=== PATIENT | female | born 1965 | race Caucasian/White ===

== ENCOUNTER 2018-11-21 07:15 | Day surgery (SDC) | payer OTHER ==
[2018-11-20 11:49] VITALS: BMI 30.5
[2018-11-21] MEDS ORDERED: Fentanyl 100 MCG/2 ML VIAL ONE ×2 (08:35→12:25)
[2018-11-21] MEDS ORDERED: Ciprofloxacin 0.2% Otic 1 DROP CON ONE ×2 (09:18→11:14)
[2018-11-21] MEDS ORDERED: Lidocaine 1% w/Epinephrine 1:100K 20 ML VIAL ONE ×2 (09:18→10:23)
[2018-11-21] MEDS ORDERED: Bacitracin Zinc Ointment 30 gm TUBE ONE (09:18)
[2018-11-21] MEDS ORDERED: EPINEPHrine 1 MG/ML AMP ONE (09:18)
[2018-11-21] MEDS ORDERED: Gelfilm 1 EA Packet ONE (10:45)
[2018-11-21] MEDS ORDERED: Morphine 2 MG/ML SYRINGE ONE (13:32)
[2018-11-21] MEDS ORDERED: HYDROcodone/Acetaminophen 5/325 mg Tablet ONE (13:32)
[2018-11-21] MEDS ORDERED: PHENYLEPHRINE-NS 100 MCG/ML 10 ML SYRINGE ONE (16:37)
[2018-11-21] MEDS ORDERED: Lidocaine 1% PF 5 ML VIAL ONE (16:37)
[2018-11-21] MEDS ORDERED: Succinylcholine Chloride 20 MG/ML 10 ml SYRINGE FS ONE (16:37)
[2018-11-21] MEDS ORDERED: Dexamethasone 20 MG/5 ML VIAL ONE (16:37)
[2018-11-21] MEDS ORDERED: PROPOFOL 200 MG/20 ML VIAL ONE (16:37)
[2018-11-21] MEDS ORDERED: Rocuronium Bromide 10 MG/ML (10ML VIAL) ONE (16:37)
[2018-11-21] MEDS ORDERED: Ondansetron PF 4 MG/2 ML Vial ONE (16:37)
[2018-11-21] MEDS ORDERED: ePHEDrine 50 MG/ML VIAL ONE (16:37)
--- NOTE | 2018-11-22 09:24 | OP ---
DATE OF PROCEDURE: 11/21/2018 PREOPERATIVE DIAGNOSES: Right chronic otitis media, right chronic mastoiditis. POSTOPERATIVE DIAGNOSES: Right chronic otitis media, right chronic mastoiditis. PROCEDURES PERFORMED: 1. Right myringotomy placement of Paparella type 1 pressure equalization tubes using binocular microscopy. 2. Right tympanomastoidectomy using binocular microscopy. 3. Facial nerve monitoring for 2 hours. 4. Use of operating microscope. PROCEDURE IN DETAIL: After consent was obtained, the patient was identified and brought to the operating room, and placed on the operating room table in supine position. General endotracheal anesthesia was obtained and facial nerve monitor was placed and documented to be functioning well. We then prepped and draped the ear and positioned the patient for surgery. The ear canal was injected with 1% lidocaine with 1:50,000 epinephrine. We then cleared the external canal and visualized the tympanic membrane. An anterior inferior myringotomy was performed, in which Paparella type 1 pressure equalization tube was placed. We then proceeded with posterior creating a posterior auricular incision, carrying down through the skin and subcutaneous tissues and postauricular muscles. We then elevated anteriorly along the temporalis fascial plane and skeletonized the posterior aspect of the ear canal. A self-retaining retractor was placed. We then made a periosteal incision with the cautery and exposed the mastoid using a Lempert elevator. At this point, the posterior canal skin was elevated and transected with a 15 blade and a Seward drain was used to retract the ear forward. We then harvested a temporalis fascial graft and cleaned it and placed it on the back table to dry. Vertical incisions were made in the external canal skin and dissection continued down to the level of the annulus, which was then elevated. We then packed the external canal, protected from the bony fragments and took down several adhesions in the middle ear space. The middle ear space was filled with Gelfoam and treated with Ciprodex to prevent postop adhesions of the tympanic membrane to the middle ear mucosa. We then used a #6 cutting drill bit to skeletonize and dissect the mastoid. We encountered a lot of adhesive mucosal disease within the air cells. Ultimately, smaller drill bits were used to delineate the skull base, lateral sinus and the air cells and the tip of the mastoid. We then proceeded to skeletonize the posterior canal bone. We then switched to a constance bur and dissected up towards the attic at this point and smoothed out all the mastoid bone once continuity was obtained with the middle ear space. We copiously irrigated with saline and suctioned it. There was free flow of mucosa. Once the attic obstruction was addressed, relieved. At this point, then we filled the mastoid with some Gelfoam, treated with Ciprodex and reapproximated the periosteum. We then closed the postauricular muscles and the dermis and replaced the tympanomeatal flap. The external canal was also filled with Gelfoam. The skin was closed with a running Prolene and sterile dressing was applied as well as was a Rudy ear dressing. The patient was then awakened, taken to recovery room in stable condition prior to discharge home. Facial nerve was intact. Job ID: [id number]
== END 2018-11-25 15:15 | disposition home or self-care (01) ==
LOC: SDC 07:15
PROVIDERS: ATTEND Specialist
PROC: 0NB50ZZ Excision of Right Temporal Bone, Open Approach (ICD-10-PCS; principal; 2018-11-21)
PROC: 099570Z Drainage of Right Middle Ear with Drainage Device, Via Natural or Artificial Opening (ICD-10-PCS; principal; 2018-11-21)
DX: H70.11 Chronic mastoiditis, right ear (principal); H65.21 Chronic serous otitis media, right ear; H71.91 Unspecified cholesteatoma, right ear; E11.9 Type 2 diabetes mellitus without complications; G43.909 Migraine, unspecified, not intractable, without status migrainosus; Z79.4 Long term (current) use of insulin; Z79.899 Other long term (current) drug therapy; Z98.890 Other specified postprocedural states
CPT/HCPCS: 36416; 85014; 93005; 93010; J0131; J0171; J1100; J2001; J2270; J2405; J2704; J3010; J3490

== ENCOUNTER 2020-05-29 02:12 | Inpatient (IN) | payer OTHER ==
[2020-05-29] MEDS ORDERED: Dextrose 50% Abboject 50 ML SYRINGE ONE (06:03)
[2020-05-29] MEDS ORDERED: Dextrose 50% Abboject 50 ML SYRINGE IVP PRN (06:15)
[2020-05-29] MEDS ORDERED: Dextrose 5% in Water 1,000 ML IV PRN ×2 (06:15→07:07)
[2020-05-29 06:32] LABS: #Lymphocytes 0.8 thou/uL (1.20-3.40); #Monocytes 0.1 thou/uL (0.11-0.59); %Basophils 0.5 % (0.0-1.0); %Eosinophils 0.3 % (0.0-10.0); %Monocytes 1.6 % (0.0-10.0); %Neutrophils 87.6 % (42.0-75.0); Hemoglobin 9.4 g/dL (12.0-16.0); Mean Corpuscular HGB CONC 33.1 g/dL (32.0-36.0); Mean Corpuscular Hemoglobin 31.7 pg (27.0-31.0); Mean Corpuscular Volume 95.6 fL (78.0-98.0); Mean Platelet Volume 10.2 fL (7.4-10.4); Platelet Count 183 thou/uL (130-400); RBC Distribution Width 12.6 % (11.5-14.5); Red Blood Cell (RBC) Count 2.95 mill/uL (4.20-5.40)
[2020-05-29] MEDS ORDERED: Sodium Chloride 0.9% 1,000 ML IV SCH (06:45)
--- NOTE | 2020-05-29 06:48 | PDOC.HHP ---
Hospitalist HPI - History of Present Illness Dyspnea History of Present Illness: This is a 55-year-old female patient with a history of hypertension, diabetes mellitus who was transferred from [facility] on account of worsening respiratory failure in the setting of Covid pneumonia. Patient noted that she tested positive for Covid a week ago. She was initially asymptomatic however she started developing fevers and mild shortness of breath. However 2 days ago she did have having worsening shortness of breath and cough. She notes having coughed up blood on 2 occasions. She presented [facility] where she was initially managed on oxygen therapy steroids however her oxygen requirements kept rising. It was also noted her blood sugar was difficult to control and she also had an NATANAEL. Prior to discharge she was on 15 L oxygen on nonrebreather. She was directly admitted to the CCU. Initial vital were BP 140/61, respiratory 29, oxygen sats 95% on high flow. She was afebrile. Hospitalist ROS - Review of Systems Constitutional: reports: fever, weakness, malaise. denies: chills, sweats Respiratory: reports: cough, shortness of breath, hemoptysis, SOB with excertion Cardiovascular: denies: chest pain, palpitations, orthopnea, paroxysmal noc. dyspnea Gastrointestinal: denies: nausea, vomiting, abdominal pain, diarrhea Genitourinary: denies: dysuria, frequency, incontinence, hematuria Neurological: denies: weakness, numbness, incoordination, change in speech All other systems reviewed; all pertinent +/- noted in HPI/Subj - Medication Medications: Medications: Currently refer to ambulatory order list. Allergies: Prednisone Hospitalist History - Past Medical History Cardiac: reports: HTN Endocrine: reports: Diabetes - Past Surgical History Other Surgical History: right ear surgery - Family History Family History: reports: no pertinent history - Social History Smoking Status: Never smoker Alcohol: reports: None Living Situation: With Family Activity level: independent ambulation - Exam General Appearance: awake alert Eye: PERRL, anicteric sclera ENT: normocephalic atraumatic Neck: supple, symmetric, no thyromegaly Heart: RRR, no murmur, no gallops, no rubs, normal peripheral pulses Respiratory - other findings: Reduced air entry bilaterally. Occasional wheezing Gastrointestinal: soft, non-tender, non-distended, normal bowel sounds Extremities: no cyanosis, no clubbing, no edema Neurological: cranial nerve grossly intact, normal sensation to touch, no focal deficits Musculoskeletal: normal tone, normal strength, no muscle wasting Psychiatric: normal affect, normal behavior, A&O x 3 Hospitalist Results - Labs Result Diagrams: 05/29/20 06:22 05/29/20 06:22 Lab results: WBC 8.0 thou/uL (4.8-10.8) 05/29/20 06:22 Hgb 9.4 g/dL (12.0-16.0) L 05/29/20 06:22 Hct 28.2 % (36.0-47.0) L 05/29/20 06:22 MCV 95.6 fL (78.0-98.0) 05/29/20 06:22 Plt Count 183 thou/uL (130-400) 05/29/20 06:22 Neutrophils % 87.6 % (42.0-75.0) H 05/29/20 06:22 Hospitalist H&P A/P - Plan Plan: This is a 55-year-old female patient with a history of hypertension, diabetes mellitus tested positive for Covid a week ago coming in with worsening dyspnea cough and acute worsening respiratory failure. Acute hypoxic respiratory failure In the setting of Covid pneumonia Currently on high flowcontinue Appreciate pulmonology input. Pneumonia due to Covid Oxygen therapy as above Other D-dimer, ferritin and CRP may not benefit from remdesivir order Plasma Monitor in CCU. NATANAEL Creatinine was above 2 at outside facility Was started on IV fluidswe will continue Nephrology consult Hyperglycemia due to type 2 diabetes/steroids Correctional insulin Monitor glucose. Hypertension BP controlled Monitor blood pressure. DVT prophylaxisLovenox CODE STATUS full code
[2020-05-29 06:49] LABS: Lactic Acid 1.9 mmol/L (0.5-2.2)
[2020-05-29 06:55] LABS: ALT (SGPT) 28 U/L (8-55); AST (SGOT) 30 U/L (5-34); Albumin 3.1 g/dL (3.5-5.0); Alkaline Phosphatase 175 U/L (40-110); Anion Gap 16 mmol/L (10-20); BUN (Urea Nitrogen) 50 mg/dL (9.8-20.1); Bilirubin, Total 0.2 mg/dL (0.2-1.2); Calc. Creatinine Clearance 44 mL/min (70-130); Calcium 7.1 mg/dL (7.8-10.44); Carbon Dioxide 16 mmol/L (22-29); Chloride 110 mmol/L (98-107); Globulin 2.8 g/dL (2.4-3.5); Glucose 175 mg/dL (70-105); Magnesium 2.1 mg/dL (1.6-2.6); Phosphorus 2.9 mg/dL (2.3-4.7); Potassium 4.4 mmol/L (3.5-5.1); Protein, Total 5.9 g/dL (6.0-8.3); Sodium 138 mmol/L (136-145)
[2020-05-29] MEDS ORDERED: Dextrose 50% Abboject 50 ML SYRINGE SLOW IVP PRN (07:07)
--- NOTE | 2020-05-29 08:07 | RAD ---
Chest AP view INDICATION: History of Covid pneumonia COMPARISON: None FINDINGS: Lungs: There is bilateral interstitial and airspace opacities Cardiac silhouette: The cardiomediastinal silhouette appears within normal limits. Pulmonary vasculature: Normal Pleural spaces: No pleural effusion or pneumothorax is demonstrated. Upper abdomen: No abnormality seen. Osseous structures: No acute osseous abnormality. Additional findings: None. IMPRESSION: Bilateral interstitial and airspace opacities suspicious for an atypical pneumonia
[2020-05-29 08:13] LABS: Actual Bicarbonate (HCO3a) 15.2 mEq/L (22-28); Base Excess (BEa) -8.4 mEq/L (-2.0 to +3.0); CO2 Tension 26.1 mmHg (35.0-45.0); Calcium, Ionized (arterial) 1.02 mmol/L (1.12-1.30); Carboxyhemoglobin (COHb) 0.5 gm% (0.0-3.0); Hemoglobin (Hb) 12.3 g/dL (12.0-16.0); Potassium - ABG Lab 3.93 mmol/L (3.70-5.30); pH, Arterial 7.38 (7.35-7.45)
[2020-05-29 08:24] LABS: ALV-art Gradient 490.975 mmHg (0-20); O2 Tension (PaO2), arterial 46.8 mmHg (80.0-100.0); Puncture Site RBA
[2020-05-29] MEDS: Sodium Bicarbonate 150 MEQ in Dextrose 5% in Water 1,000 ML IV SCH ×2 (08:58→22:23)
[2020-05-29] MEDS: Cholecalciferol (Vitamin D3) 400 UNITS TAB PO SCH (08:58)
[2020-05-29] MEDS: Dexamethasone 4 mg/ml Vial SLOW IVP SCH (08:59)
[2020-05-29] MEDS: Ascorbic Acid 500 mg Chewable Tablet PO SCH (08:59)
[2020-05-29] MEDS: Zinc Sulfate 220 MG CAP PO SCH (09:00)
[2020-05-29] MEDS ORDERED: Enoxaparin Sodium 100 MG/ML SYRINGE SC SCH (09:00)
[2020-05-29] MEDS ORDERED: Enoxaparin Sodium 40 MG/0.4 ML SYRINGE SC SCH (09:00)
--- NOTE | 2020-05-29 10:02 | PDOC.HOSPP ---
- Subjective Encounter Date: 05/29/20 (f/u acute resp failure) Encounter Time: 09:59 Subjective: Pt reports her breathing feels worse - she is short of breath and coughing. - Objective Vital Signs & Weight: Vital Signs (12 hours) Temp 05/29/20 08:00 101.1 F H 05/29/20 06:00 98.0 F Weight Weight 220 lb Most Recent Monitor Data Heart Rate from ECG 91 NIBP 165/63 NIBP BP-Mean 97 Respiration from ECG 38 SpO2 89 I&O: 05/28/20 05/29/20 05/30/20 06:59 06:59 06:59 Output Total 0 425 Balance 0 -425 Result Diagrams: 05/29/20 06:22 05/29/20 06:22 EKG Reviewed by me: Yes (tele - sinus, 80's) Hospitalist ROS - Medication Medications: Active Medications Generic Name Dose Route Start Last Admin Trade Name Freq PRN Reason Stop Dose Admin Ascorbic Acid 1,000 mg 05/29/20 09:00 05/29/20 08:59 Ascorbic Acid 500 Mg Chewable Tablet PO 1,000 mg DAILY GEO Administration Cholecalciferol 400 units 05/29/20 09:00 05/29/20 08:58 Cholecalciferol (Vitamin D3) 400 Units Tab PO 400 units DAILY GEO Administration Dexamethasone 8 mg 05/29/20 09:00 05/29/20 08:59 Dexamethasone 4 Mg/Ml Vial SLOW IVP 8 mg DAILY GEO Administration Enoxaparin Sodium 100 mg 05/29/20 09:00 05/29/20 08:58 Enoxaparin Sodium 100 Mg/Ml Syringe SC 100 mg 0900,2100 GEO Administration Sodium Bicarbonate 150 meq/ 1,150 mls @ 80 mls/hr 05/29/20 08:30 05/29/20 08:58 Dextrose/Water IV 1,150 mls INF GEO Administration Sodium Chloride 10 ml 05/29/20 09:00 05/29/20 09:00 Flush - Normal Saline 10 Ml Syringe IVF 10 ml Q12HR GEO Administration Zinc Sulfate 220 mg 05/29/20 09:00 05/29/20 09:00 Zinc Sulfate 220 Mg Cap PO 220 mg DAILY GEO Administration - Exam General Appearance: NAD Heart: RRR, no murmur Respiratory: no wheezes, no rales, rhonchi, tachypneic Gastrointestinal: soft, non-tender, non-distended, normal bowel sounds Extremities: no cyanosis, no clubbing, no edema Psychiatric - other findings: appears tired and speaking in short phrases Hosp A/P (1) Acute respiratory failure Code(s): J96.00 - ACUTE RESPIRATORY FAILURE, UNSP W HYPOXIA OR HYPERCAPNIA Status: Acute Qualifiers: Respiratory failure complication: hypoxia Qualified Code(s): J96.01 - Acute respiratory failure with hypoxia (2) Pneumonia due to COVID-19 virus Code(s): U07.1 - COVID-19; J12.89 - OTHER VIRAL PNEUMONIA Status: Acute (3) Diabetes mellitus Code(s): E11.9 - TYPE 2 DIABETES MELLITUS WITHOUT COMPLICATIONS Status: Acute Qualifiers: Diabetes mellitus type: type 2 (4) Hypertension Code(s): I10 - ESSENTIAL (PRIMARY) HYPERTENSION Status: Chronic (5) Acute kidney injury Code(s): N17.9 - ACUTE KIDNEY FAILURE, UNSPECIFIED Status: Acute (6) Metabolic acidosis Code(s): E87.2 - ACIDOSIS Status: Acute (7) Hypoproteinemia Code(s): E77.8 - OTHER DISORDERS OF GLYCOPROTEIN METABOLISM Status: Acute (8) Anemia Code(s): D64.9 - ANEMIA, UNSPECIFIED Status: Acute - Plan Worsening respiratory status - d/w Pulmonology and plan to intubate - pt verbally consents to this - continue steroids - pt consented to convalescent plasma - albuterol prn - tessalon perles prn NATANAEL with metabolic acidosis - appreciate Nephrology consult - Now on bicarbonate gtt DM - insulin prn HTN - monitor bp's after intubation, hold any scheduled meds dvt prophy - changed to full dose anticoagulation by Nephrology/Dr. Tavares gi prophy - will start IV famotidine code status - full pt at high risk in current condition with guarded prognosis
[2020-05-29] MEDS ORDERED: Propofol 1,000 MG/100 ML VIAL IV ONE (10:13)
[2020-05-29] MEDS ORDERED: Ventilator Sedation Protocol 1 EACH FS SCH (10:13)
[2020-05-29] MEDS ORDERED: Propofol BOLUS 1,000 MG/100 ML VIAL IV PRN (10:30)
[2020-05-29] MEDS ORDERED: Morphine 2 MG/ML VIAL SLOW IVP PRN (10:30)
[2020-05-29] MEDS ORDERED: Fentanyl BOLUS 250 ML IVPB PRN (10:30)
[2020-05-29] MEDS ORDERED: DISCONTINUE PREVIOUS NARCOTIC PAIN MEDICATIONS AND BENZODIAZEPINES FS SCH (10:30)
[2020-05-29] MEDS: fentaNYL Citrate/PF 2,000 MCG in Sodium Chloride 0.9% 60 ML IV SCH (10:41)
[2020-05-29] MEDS: Lorazepam 2 MG/ML VIAL SLOW IVP PRN ×2 (10:52→12:43)
[2020-05-29 11:04] LABS: Actual Bicarbonate (HCO3a) 16.4 mEq/L (22-28); Base Excess (BEa) -8.8 mEq/L (-2.0 to +3.0); CO2 Tension 33.3 mmHg (35.0-45.0); Calcium, Ionized (arterial) 1.01 mmol/L (1.12-1.30); Carboxyhemoglobin (COHb) 0.2 gm% (0.0-3.0); Hemoglobin (Hb) 12.3 g/dL (12.0-16.0); Potassium - ABG Lab 4.27 mmol/L (3.70-5.30); pH, Arterial 7.31 (7.35-7.45)
[2020-05-29 11:06] LABS: O2 Tension (PaO2), arterial 43.3 mmHg (80.0-100.0); Puncture Site RBA
[2020-05-29 11:11] LABS: ALV-art Gradient 628.075 mmHg (0-20)
[2020-05-29 11:20] LABS: Bilirubin Negative (Negative); Blood, Urine 2+ (Negative); Clarity Turbid (Clear); Glucose, Urine (Dipstick) 30 mg/dL (Negative); Ketone, Urine Negative (Negative); Leukocyte 250 Leu/uL (Negative); Nitrite Negative (Negative); Protein, Urine (Dipstick) 100 mg/dL (Neg-Trace); Specific Gravity, Urine 1.018 (1.002-1.036); Squamous Epithelial 0-3 HPF (0-3); Transitional Epithelial 0-3 HPF (None Seen); Urobilinogen Normal mg/dL (Less than 2); pH, Urine 5.5 (5.0-9.0)
[2020-05-29] MEDS ORDERED: Vecuronium 10 MG VIAL ONE (11:27)
[2020-05-29 11:30] LABS: Bacteria/HPF Rare-Few HPF (None Seen); RBC/HPF 21-50 HPF (0-3)
[2020-05-29 11:34] LABS: Creatinine, Urine 148.82 mg/dL (47-110)
[2020-05-29] MEDS: Propofol 1,000 MG/100 ML VIAL IV PRN ×3 (12:43→19:59)
[2020-05-29] MEDS ORDERED: Enoxaparin Sodium 60 MG/0.6 ML SYRINGE SC SCH (14:15)
--- NOTE | 2020-05-29 14:19 | PRG ---
DATE OF SERVICE: 05/29/2020 HISTORY OF PRESENT ILLNESS: Ms. Mckeon is a 55-year-old female who is very pleasant and cooperative, although in distress. She is transferred here from [facility] near [place] for pneumonia. She tested positive for COVID a week prior. When I saw her, she reported that she was getting fatigued. She did not know how much longer she could go on. PAST MEDICAL HISTORY: Remarkable for diabetes. FAMILY HISTORY: Negative for lung disease in early age. SOCIAL HISTORY: She is a nonsmoker and nondrinker. PHYSICAL EXAMINATION: VITAL SIGNS: Breathing in the 30s, low-grade temperature elevation. Blood pressure 110/54, heart rate is in 80s. HEAD AND NECK: Unremarkable. LUNGS: Remarkable for coarse and equal breath sounds. HEART: Regular rhythm. ABDOMEN: Soft. EXTREMITIES: Without edema. DIAGNOSTIC STUDIES: Chest radiograph shows patchy bilateral infiltrates. LABORATORY DATA: White count 8, hemoglobin 9.4, platelets 183. Sodium 138, potassium 4.4, chloride 110, bicarb 16, BUN 50, creatinine 2.27. Blood gas at 8 o'clock this morning is 7.38, CO2 26 PO2 46. I have recommended that we proceed with intubation. She will not improve quickly on BiPAP, only buy her a little time before she needs intubation. Hopefully, we can intubate her and place her in the prone position and minimize her FIO2. The pH post intubation is 7.31, CO2 33, PO2 is 43 on bilevel. We have adjusted her ventilation. She will be prone. Convalescent plasma will be ordered, although I suspect she has developed some antibodies at this point. Based on the available data, she is not really a candidate for monoclonal antibody given the severity of her illness. ADDENDUM: It was noted that Lovenox 100 mg subcu q.12 has been ordered. Since it is unclear which direction her creatinine clearance is going to go, I think this might be excessive, so we will cut her dosing back to 60 mg q.12 for now. Critical care time 30 min. Job ID: [id number] MTDD
[2020-05-29] MEDS: Acetaminophen 650 MG Suppository PR PRN (14:33)
[2020-05-29] MEDS: Benzonatate 100 MG CAP PO SCH ×2 (15:27→20:00)
[2020-05-29] MEDS ORDERED: Calcium Gluconate 9.2 MEQ in Sodium Chloride 0.9% 100 ML IVPB SCH (15:30)
--- NOTE | 2020-05-29 16:14 | CON ---
DATE OF CONSULTATION: 05/29/2020 SERVICE: Nephrology. REASON FOR CONSULTATION: Acute renal failure. REQUESTING PHYSICIAN: Laurent Beaulieu MD HISTORY OF PRESENT ILLNESS: A 55-year-old female with known history of hypertension, diabetes mellitus, who was admitted on transfer from [facility] for further evaluation and treatment of worsening respiratory failure. The patient was diagnosed with COVID pneumonia with COVID infection about a week ago and developed worsening shortness of breath as well as cough associated with hypoxia and hemoptysis and was admitted to [facility]. She initially was managed with oxygen therapy and steroids. However, respiratory status continued to worsen, and the patient maxed out on 15 L on nonrebreather yet, was not saturating well, hence need for ICU transfer for further evaluation and treatment. The patient was unable to provide any significant history this morning due to worsening respiratory distress. Despite high humidity oxygen, the patient is not saturating well and has significant hypoxia on arterial blood gas and intubation is planned at this moment. The patient also was found to have elevated creatinine and BUN, necessitating Nephrology consult. PAST MEDICAL HISTORY: 1. Hypertension. 2. Diabetes mellitus. PAST SURGICAL HISTORY: Right ear surgery. FAMILY HISTORY: Reviewed, but noncontributory. SOCIAL HISTORY: Never smoker. Lives with family. Denied alcohol or recreational drug use. ALLERGIES: PREDNISONE. PRIOR TO HOSPITAL MEDICATIONS: 1. Amlodipine 2.5 mg p.o. daily at bedtime. 2. Victoza 1.8 subcutaneously daily. 3. Enalapril 2.5 mg p.o. b.i.d. 4. Tresiba 32 units subcutaneously daily. 5. Gabapentin 400 mg p.o. daily at bedtime. 6. Allopurinol 200 mg p.o. daily. REVIEW OF SYSTEMS: Unable to obtain due to the patient's condition. PHYSICAL EXAMINATION: VITAL SIGNS: Temperature 101.1, pulse 92, respiratory rate 25, SpO2 of 89% on high-flow high humidity oxygen, blood pressure is 158/64. GENERAL: Obese female, in moderate respiratory distress. Afebrile, but anicteric and acyanotic. HEENT: Normocephalic, atraumatic. Oral mucosa is mildly dry. NECK: Supple with no JVD. CARDIOVASCULAR: Regular rhythm and rate. Normal heart sounds 1 and 2. RESPIRATORY: Fair air entry with scattered transmitted breath sounds and crackles. Work of breathing is increased. GI: Obese, soft, nontender, nondistended with normal bowel sounds. EXTREMITIES: Grossly normal looking atraumatic with no edema or erythema. DETECTIVE: Conscious, alert, oriented x3 with appropriate mental status. Cranial nerves 2 through 12 are grossly intact. The patient moves all extremities. DIAGNOSTIC DATA: CBC today showed WBC count of 8.0, hemoglobin of 9.4, platelet of 183. D-dimer is elevated at 3.68. Arterial blood gas this morning showed a pH of 7.38, pCO2 of 26, pO2 of 46.8, SpO2 of 84.6, ionized calcium of 1.02. Chemistry this morning showed sodium 138, potassium 4.4, chloride 110, CO2 of 16, BUN 50, creatinine 2.27, glucose 175, calcium 7.1, phosphorus 2.9, magnesium 2.1, total bilirubin 0.2, AST 30, ALT 28, alkaline phosphatase 175, total protein 5.9, albumin 3.8. Inflammatory markers showed C-reactive protein 8.3, ferritin 449.23. Chest x-ray showed bilateral interstitial and airspace opacities suspicious for atypical pneumonia. ASSESSMENT: 1. Acute kidney injury: Most likely due to hemodynamic factors related to volume depletion and cytokine mediated injury related to sepsis. 2. Metabolic acidosis. 3. Anemia: Most likely anemia of acute illness. 4. Acute respiratory failure with hypoxia. 5. COVID pneumonia. 6. Hypertension: Control is suboptimal. 7. Diabetes mellitus, on treatment. PLAN: 1. We will substitute normal saline with sodium bicarbonate infusion. 2. We will also replete serum calcium with calcium gluconate. We will also get vitamin D level. 3. We will also get urinalysis with urine electrolytes. 4. Avoid nephrotoxic agent including diuretic and RAAS blockers. 5. Further treatment to follow depending on hospital course and review of other diagnostic test. Job ID: [id number]
[2020-05-29] MEDS ORDERED: Sterile Water 10 ML VIAL IVP PRN (18:49)
[2020-05-29] MEDS: Enoxaparin Sodium 60 MG/0.6 ML SYRINGE SC SCH (20:00)
[2020-05-29] MEDS: Vecuronium 10 MG VIAL IVP PRN (20:00)
[2020-05-29] MEDS: Famotidine/PF 20 mg/2ml Vial SLOW IVP SCH (20:04)
[2020-05-30 03:54] LABS: #Lymphocytes 0.6 thou/uL (1.20-3.40); #Monocytes 0.1 thou/uL (0.11-0.59); #Neutrophils 2.6 thou/uL (1.40-6.50); %Basophils 0.4 % (0.0-1.0); %Eosinophils 0.2 % (0.0-10.0); %Lymphocytes 17.2 % (21.0-51.0); %Monocytes 2.8 % (0.0-10.0); %Neutrophils 79.4 % (42.0-75.0); Hemoglobin 10.2 g/dL (12.0-16.0); Mean Corpuscular HGB CONC 31.8 g/dL (32.0-36.0); Mean Corpuscular Hemoglobin 29.6 pg (27.0-31.0); Mean Corpuscular Volume 93.2 fL (78.0-98.0); Mean Platelet Volume 10.7 fL (7.4-10.4); Platelet Count 156 thou/uL (130-400); RBC Distribution Width 12.5 % (11.5-14.5); Red Blood Cell (RBC) Count 3.43 mill/uL (4.20-5.40); White Blood Cell (WBC) Count 3.3 thou/uL (4.8-10.8)
[2020-05-30 04:24] LABS: Albumin 2.7 g/dL (3.5-5.0); Anion Gap 17 mmol/L (10-20); BUN (Urea Nitrogen) 50 mg/dL (9.8-20.1); BUN/Creatinine Ratio 32.68; Calc. Creatinine Clearance 65 mL/min (70-130); Calcium 7.1 mg/dL (7.8-10.44); Carbon Dioxide 17 mmol/L (22-29); Chloride 106 mmol/L (98-107); Glucose 189 mg/dL (70-105); Phosphorus 3.5 mg/dL (2.3-4.7); Potassium 3.1 mmol/L (3.5-5.1); Sodium 137 mmol/L (136-145)
[2020-05-30] MEDS ORDERED: Electrolyte Replacement Protocol 1 EACH FS SCH (06:45)
[2020-05-30] MEDS: HumaLOG 300 UNITS/3 ML VIAL SC PRN ×4 (06:48→22:32)
[2020-05-30] MEDS: Vecuronium 10 MG VIAL IVP PRN (08:37)
[2020-05-30] MEDS: Potassium Chloride 20 MEQ in Premix Bag 1 BAG IVPB SCH ×2 (08:58→10:05)
[2020-05-30] MEDS: Zinc Sulfate 220 MG CAP PO SCH (08:59)
[2020-05-30] MEDS: Enoxaparin Sodium 60 MG/0.6 ML SYRINGE SC SCH ×2 (08:59→22:06)
[2020-05-30] MEDS: Benzonatate 100 MG CAP PO SCH ×3 (08:59→22:06)
[2020-05-30] MEDS: Dexamethasone 4 mg/ml Vial SLOW IVP SCH (09:00)
[2020-05-30] MEDS: Ascorbic Acid 500 mg Chewable Tablet PO SCH (09:00)
[2020-05-30] MEDS: fentaNYL Citrate/PF 2,000 MCG in Sodium Chloride 0.9% 60 ML IV SCH (09:01)
[2020-05-30] MEDS: Cholecalciferol (Vitamin D3) 400 UNITS TAB PO SCH (09:22)
--- NOTE | 2020-05-30 10:09 | PDOC.HOSPP ---
- Subjective Encounter Date: 05/30/20 Encounter Time: 10:07 Subjective: Shannon was seen today in follow-up of COVID pneumonia and respiratory failure. She is intubated and in the prone position. No complaints voiced by staff. - Objective Vital Signs & Weight: Vital Signs (12 hours) Temp Pulse Resp 05/30/20 10:05 47 L 05/30/20 08:00 22 H 05/30/20 07:00 97.1 F L 05/30/20 06:00 22 H 05/30/20 04:00 99.1 F 22 H 05/30/20 02:00 22 H 05/30/20 00:00 98.7 F 22 H Weight Weight 220 lb Most Recent Monitor Data Heart Rate from ECG 50 NIBP 126/68 NIBP BP-Mean 87 Respiration from ECG 22 SpO2 100 I&O: 05/29/20 05/30/20 05/31/20 06:59 06:59 06:59 Intake Total 2669 Output Total 0 1715 425 Balance 0 954 -425 Result Diagrams: 05/30/20 03:40 05/30/20 03:40 Additional Labs: Accuchecks 05/30/20 05/29/20 05/29/20 09:29 20:31 16:01 POC Glucose 272 H 103 H 90 Hospitalist ROS - Medication Medications: Active Medications Generic Name Dose Route Start Last Admin Trade Name Freq PRN Reason Stop Dose Admin Acetaminophen 650 mg 05/29/20 09:58 05/29/20 14:33 Acetaminophen 650 Mg Suppository SD 650 mg Q4H PRN Administration Headache/Fever or Pain Ascorbic Acid 1,000 mg 05/29/20 09:00 05/30/20 09:00 Ascorbic Acid 500 Mg Chewable Tablet PO 1,000 mg DAILY GEO Administration Benzonatate 100 mg 05/29/20 15:00 05/30/20 08:59 Benzonatate 100 Mg Cap PO 100 mg TID GEO Administration Cholecalciferol 400 units 05/29/20 09:00 05/30/20 09:22 Cholecalciferol (Vitamin D3) 400 Units Tab PO 400 units DAILY GEO Administration Dexamethasone 8 mg 05/29/20 09:00 05/30/20 09:00 Dexamethasone 4 Mg/Ml Vial SLOW IVP 8 mg DAILY GEO Administration Enoxaparin Sodium 60 mg 05/29/20 21:00 05/30/20 08:59 Enoxaparin Sodium 60 Mg/0.6 Ml Syringe SC 60 mg 0900,2100 GEO Administration Famotidine 20 mg 05/29/20 21:00 05/29/20 20:04 Famotidine/Pf 20 Mg/2ml Vial SLOW IVP 20 mg HS GEO Administration Sodium Bicarbonate 150 meq/ 1,150 mls @ 80 mls/hr 05/29/20 08:30 05/29/20 22:23 Dextrose/Water IV 1,150 mls INF GEO Administration Fentanyl Citrate 2,000 mcg/ 100 mls @ 0 mls/hr 05/29/20 10:30 05/30/20 09:01 Sodium Chloride IV 06/28/20 10:30 100 mls INF GEO Administration Protocol Per Protocol Potassium Chloride 20 meq/ 100 mls @ 50 mls/hr 05/30/20 08:00 05/30/20 10:05 Device IVPB 05/30/20 11:59 100 mls Q2H GEO Administration Insulin Human Lispro 0 units 05/29/20 07:07 05/30/20 10:04 Humalog 300 Units/3 Ml Vial SC 4 unit .MILD SLIDING SCALE PRN Administration Mild Correctional Scale Lorazepam 2 mg 05/29/20 10:30 05/29/20 12:43 Lorazepam 2 Mg/Ml Vial SLOW IVP 06/28/20 10:30 2 mg Q1H PRN Administration Breakthrough agitation Propofol 1,000 mg 05/29/20 10:30 05/29/20 19:59 Propofol 1,000 Mg/100 Ml Vial IV 06/28/20 10:30 1,000 mg INF PRN Administration TO ACHIEVE GOAL RASS Protocol Sodium Chloride 10 ml 05/29/20 09:00 05/30/20 09:39 Flush - Normal Saline 10 Ml Syringe IVF 10 ml Q12HR GEO Administration Sterile Water 10 ml 05/29/20 18:49 05/29/20 20:00 Sterile Water 10 Ml Vial IVP 10 ml Q1H PRN Administration NEEDED FOR RECONSTITUTION Vecuronium Roark 10 mg 05/29/20 18:49 05/30/20 08:37 Vecuronium 10 Mg Vial IVP 10 mg Q1H PRN Administration SPASM Zinc Sulfate 220 mg 05/29/20 09:00 05/30/20 08:59 Zinc Sulfate 220 Mg Cap PO 220 mg DAILY GEO Administration - Exam Eye: PERRL, anicteric sclera Heart: RRR, no murmur, no gallops, no rubs, normal peripheral pulses Respiratory: rales (at both bases) Gastrointestinal: soft, non-tender, non-distended, normal bowel sounds, no palpable masses, no hepatomegaly Extremities: no cyanosis, no edema Hosp A/P (1) Pneumonia due to COVID-19 virus Code(s): U07.1 - COVID-19; J12.89 - OTHER VIRAL PNEUMONIA Status: Acute (2) Acute respiratory failure with hypoxemia Code(s): J96.01 - ACUTE RESPIRATORY FAILURE WITH HYPOXIA Status: Acute (3) Diabetes mellitus Code(s): E11.9 - TYPE 2 DIABETES MELLITUS WITHOUT COMPLICATIONS Status: Chronic Qualifiers: Diabetes mellitus type: type 2 (4) Hypertension Code(s): I10 - ESSENTIAL (PRIMARY) HYPERTENSION Status: Chronic - Plan * Acute respiratory failure due to COVID pneumonia- she is intubated and in prone position. Continue ventilatory support. * Continue Decadron, and she has received convalesce plasma * Continue anticoagulation * Continue as per PCCM * HTN- blood pressure is stable * DM- blood glucose is trending up- will add a long acting Lantus * NATANAEL- improving- continue as per Nephrology
[2020-05-30] MEDS: Propofol 1,000 MG/100 ML VIAL IV PRN ×2 (13:46→18:03)
--- NOTE | 2020-05-30 16:34 | PDOC.NEPPN ---
- Subjective Encounter Date: 05/30/20 Subjective: Seen in follow up for NATANAEL in the context of acute respiratory failure due to covid pneumonia requiring intubation. Still intubated and sedated. - Objective Vital Signs & Weight: Vital Signs (12 hours) Temp Pulse Resp Pulse Ox 05/30/20 15:25 45 L 05/30/20 14:00 92.3 F L 22 H 05/30/20 12:00 22 H 05/30/20 10:05 47 L 05/30/20 10:00 22 H 05/30/20 08:00 22 H 100 05/30/20 07:00 97.1 F L 05/30/20 06:00 22 H Weight Weight 220 lb Most Recent Monitor Data Heart Rate from ECG 45 NIBP 109/61 NIBP BP-Mean 77 Respiration from ECG 22 SpO2 100 I&O: 05/29/20 05/30/20 05/31/20 06:59 06:59 06:59 Intake Total 2669 200 Output Total 0 1715 965 Balance 0 954 -765 Result Diagrams: 05/30/20 03:40 05/30/20 03:40 Additional Labs: Accuchecks 05/30/20 05/29/20 09:29 20:31 POC Glucose 272 H 103 H Nephrology ROS - Medication Medications: Active Medications Generic Name Dose Route Start Last Admin Trade Name Freq PRN Reason Stop Dose Admin Acetaminophen 650 mg 05/29/20 09:58 05/29/20 14:33 Acetaminophen 650 Mg Suppository [place] 650 mg Q4H PRN Administration Headache/Fever or Pain Ascorbic Acid 1,000 mg 05/29/20 09:00 05/30/20 09:00 Ascorbic Acid 500 Mg Chewable Tablet PO 1,000 mg DAILY GEO Administration Benzonatate 100 mg 05/29/20 15:00 05/30/20 15:52 Benzonatate 100 Mg Cap PO 100 mg TID GEO Administration Cholecalciferol 400 units 05/29/20 09:00 05/30/20 09:22 Cholecalciferol (Vitamin D3) 400 Units Tab PO 400 units DAILY GEO Administration Dexamethasone 8 mg 05/29/20 09:00 05/30/20 09:00 Dexamethasone 4 Mg/Ml Vial SLOW IVP 8 mg DAILY GEO Administration Enoxaparin Sodium 60 mg 05/29/20 21:00 05/30/20 08:59 Enoxaparin Sodium 60 Mg/0.6 Ml Syringe SC 60 mg 0900,2100 GEO Administration Famotidine 20 mg 05/29/20 21:00 05/29/20 20:04 Famotidine/Pf 20 Mg/2ml Vial SLOW IVP 20 mg HS GEO Administration Sodium Bicarbonate 150 meq/ 1,150 mls @ 80 mls/hr 05/29/20 08:30 05/29/20 22:23 Dextrose/Water IV 1,150 mls INF GEO Administration Fentanyl Citrate 2,000 mcg/ 100 mls @ 0 mls/hr 05/29/20 10:30 05/30/20 09:01 Sodium Chloride IV 06/28/20 10:30 100 mls INF EGO Administration Protocol Per Protocol Insulin Human Lispro 0 units 05/29/20 07:07 05/30/20 10:04 Humalog 300 Units/3 Ml Vial SC 4 unit .MILD SLIDING SCALE PRN Administration Mild Correctional Scale Lorazepam 2 mg 05/29/20 10:30 05/29/20 12:43 Lorazepam 2 Mg/Ml Vial SLOW IVP 06/28/20 10:30 2 mg Q1H PRN Administration Breakthrough agitation Propofol 1,000 mg 05/29/20 10:30 05/30/20 13:46 Propofol 1,000 Mg/100 Ml Vial IV 06/28/20 10:30 1,000 mg INF PRN Administration TO ACHIEVE GOAL RASS Protocol Sodium Chloride 10 ml 05/29/20 09:00 05/30/20 09:39 Flush - Normal Saline 10 Ml Syringe IVF 10 ml Q12HR GEO Administration Sterile Water 10 ml 05/29/20 18:49 05/29/20 20:00 Sterile Water 10 Ml Vial IVP 10 ml Q1H PRN Administration NEEDED FOR RECONSTITUTION Vecuronium [place] 10 mg 05/29/20 18:49 05/30/20 08:37 Vecuronium 10 Mg Vial IVP 10 mg Q1H PRN Administration SPASM Zinc Sulfate 220 mg 05/29/20 09:00 05/30/20 08:59 Zinc Sulfate 220 Mg Cap PO 220 mg DAILY GEO Administration - Exam General - other findings: sedated Eye: anicteric sclera ENT: normocephalic atraumatic ENT - other findings: ET tube in place Respiratory - other findings: ventilator transmitted sound noted Cardiovascular: RRR Gastrointestinal: soft, non-distended Gastrointestinal - other findings: Gutierrez catheter in place Extremities: no edema Neurological - other findings: sedated Nephrology Results - Labs Result Diagrams: 05/30/20 03:40 05/30/20 03:40 Lab results: WBC 3.3 thou/uL (4.8-10.8) L 05/30/20 03:40 Hgb 10.2 g/dL (12.0-16.0) L 05/30/20 03:40 Hct 32.0 % (36.0-47.0) L 05/30/20 03:40 MCV 93.2 fL (78.0-98.0) 05/30/20 03:40 Plt Count 156 thou/uL (130-400) 05/30/20 03:40 Neutrophils % 79.4 % (42.0-75.0) H 05/30/20 03:40 ABG pH 7.31 (7.35-7.45) L 05/29/20 11:02 ABG pCO2 33.3 mmHg (35.0-45.0) L 05/29/20 11:02 ABG pO2 43.3 mmHg (80.0-100.0) L* 05/29/20 11:02 Sodium 137 mmol/L (136-145) 05/30/20 03:40 Potassium 3.1 mmol/L (3.5-5.1) L 05/30/20 03:40 Chloride 106 mmol/L (98-107) 05/30/20 03:40 Carbon Dioxide 17 mmol/L (22-29) L 05/30/20 03:40 BUN 50 mg/dL (9.8-20.1) H 05/30/20 03:40 Creatinine 1.53 mg/dL (0.6-1.1) H 05/30/20 03:40 Glucose 189 mg/dL (70-105) H 05/30/20 03:40 Lactic Acid 1.9 mmol/L (0.5-2.2) 05/29/20 06:22 Calcium 7.1 mg/dL (7.8-10.44) L 05/30/20 03:40 Total Bilirubin 0.2 mg/dL (0.2-1.2) 05/29/20 06:22 AST 30 U/L (5-34) 05/29/20 06:22 ALT 28 U/L (8-55) 05/29/20 06:22 Alkaline Phosphatase 175 U/L (40-110) H 05/29/20 06:22 C-Reactive Protein 8.31 mg/dL (= or < 0.5) H 05/29/20 06:22 Serum Total Protein 5.9 g/dL (6.0-8.3) L 05/29/20 06:22 Albumin 2.7 g/dL (3.5-5.0) L 05/30/20 03:40 Urine Ketones Negative mg/dL (Negative) 05/29/20 10:30 Urine Blood 2+ (Negative) A 05/29/20 10:30 Urine Nitrite Negative (Negative) 05/29/20 10:30 Ur Leukocyte Esterase 250 Chandan/uL (Negative) A 05/29/20 10:30 Urine RBC 21-50 HPF (0-3) A 05/29/20 10:30 Urine WBC 11-20 HPF (0-3) A 05/29/20 10:30 Ur Squamous Epith Cells 0-3 HPF (0-3) 05/29/20 10:30 Urine Bacteria Rare-Few HPF (None Seen) 05/29/20 10:30 Sodium 137 mmol/L (136-145) 05/30/20 03:40 Potassium 3.1 mmol/L (3.5-5.1) L 05/30/20 03:40 Chloride 106 mmol/L (98-107) 05/30/20 03:40 Carbon Dioxide 17 mmol/L (22-29) L 05/30/20 03:40 Anion Gap 17 mmol/L (10-20) 05/30/20 03:40 BUN 50 mg/dL (9.8-20.1) H 05/30/20 03:40 Creatinine 1.53 mg/dL (0.6-1.1) H 05/30/20 03:40 Glucose 189 mg/dL (70-105) H 05/30/20 03:40 Calcium 7.1 mg/dL (7.8-10.44) L 05/30/20 03:40 Phosphorus 3.5 mg/dL (2.3-4.7) 05/30/20 03:40 Magnesium 2.1 mg/dL (1.6-2.6) 05/29/20 06:22 Albumin 2.7 g/dL (3.5-5.0) L 05/30/20 03:40 Nephrology AP PN - Plan ASSESSMENT: Acute kidney injury: Most likely due to hemodynamic factors related to volume depletion and cytokine mediated injury related to sepsis. BUN/creat are trending down with bicarb infusion. Metabolic acidosis. Improving. Hypocalcemia Vitamin D deficiency Hypokalemia Anemia: Most likely anemia of acute illness. Acute respiratory failure with hypoxia requiring intubation COVID pneumonia. Hypertension: Control is acceptable Diabetes mellitus, on treatment. Plan Continue sodium bicarbonate infusion. Start vitamin D supplementation Replete serum potassium. Monitor electrolytes and replete as indicated. 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
[2020-05-30] MEDS: Sodium Bicarbonate 150 MEQ in Dextrose 5% in Water 1,000 ML IV SCH (17:01)
--- NOTE | 2020-05-30 20:42 | PRG ---
DATE OF SERVICE: 05/30/2020 SUBJECTIVE: [facility] had significant improvement in her gas exchange with prone ventilation overnight. OBJECTIVE: VITAL SIGNS: Heart rate is in the 50s, respiratory rate in the 20s, oximetry is 100%, blood pressure 120/66. respiratory rate is 22. LUNGS: Remarkable for coarse equal breath sounds. HEART: Regular rhythm. ABDOMEN: Soft. EXTREMITIES: Without asymmetry. LABORATORY DATA: White count 3.3, hemoglobin 10.2, platelets 156. Sodium 137, potassium 3.1, chloride 106, bicarb 17, BUN 50, creatinine 1.53. IMPRESSION: 1. COVID pneumonia. 2. Acute on chronic renal disease. PLAN: Continue supportive care. Critical care time 30 min. Job ID: [id number] MTDD
[2020-05-30] MEDS: Famotidine/PF 20 mg/2ml Vial SLOW IVP SCH (22:06)
[2020-05-30] MEDS: Insulin Glargine 8 UNITS in Pre-Filled Syringe 1 EACH SC SCH (22:07)
[2020-05-31] MEDS: Acetaminophen 325 MG TAB PO PRN ×2 (02:20→08:09)
[2020-05-31] MEDS: Acetaminophen 650 MG Suppository PR PRN (03:20)
[2020-05-31 04:35] LABS: Phosphorus 3.3 mg/dL (2.3-4.7)
[2020-05-31 04:40] LABS: Band 15 % (5-11); Hemoglobin 9.1 g/dL (12.0-16.0); Lymphocytes 3 % (21-51); MDiff Complete? YES; Mean Corpuscular HGB CONC 32.7 g/dL (32.0-36.0); Mean Corpuscular Hemoglobin 30.8 pg (27.0-31.0); Mean Corpuscular Volume 94.1 fL (78.0-98.0); Mean Platelet Volume 11.1 fL (7.4-10.4); Neutrophil 82 % (42-75); Platelet Count 207 thou/uL (130-400); Platelet Morphology Comment Appears Adequate; RBC Distribution Width 12.8 % (11.5-14.5); Red Blood Cell (RBC) Count 2.95 mill/uL (4.20-5.40); White Blood Cell (WBC) Count 11.8 thou/uL (4.8-10.8)
[2020-05-31 04:47] LABS: Anion Gap 20 mmol/L (10-20); BUN (Urea Nitrogen) 51 mg/dL (9.8-20.1); Calc. Creatinine Clearance 72 mL/min (70-130); Calcium 7.1 mg/dL (7.8-10.44); Carbon Dioxide 18 mmol/L (22-29); Chloride 104 mmol/L (98-107); Glucose 219 mg/dL (70-105); Magnesium 2.1 mg/dL (1.6-2.6); Potassium 3.9 mmol/L (3.5-5.1); Sodium 138 mmol/L (136-145)
[2020-05-31] MEDS: HumaLOG 300 UNITS/3 ML VIAL SC PRN ×4 (04:53→20:26)
[2020-05-31] MEDS ORDERED: Potassium Chloride 40 MEQ in Premix Bag 1 BAG IVPB SCH (08:00)
[2020-05-31] MEDS: Zinc Sulfate 220 MG CAP PO SCH (08:05)
[2020-05-31] MEDS: Ascorbic Acid 500 mg Chewable Tablet PO SCH (08:05)
[2020-05-31] MEDS: Dexamethasone 4 mg/ml Vial SLOW IVP SCH (08:05)
[2020-05-31] MEDS: Enoxaparin Sodium 60 MG/0.6 ML SYRINGE SC SCH ×2 (08:06→20:07)
[2020-05-31] MEDS: Cholecalciferol (Vitamin D3) 400 UNITS TAB PO SCH (08:06)
[2020-05-31] MEDS: Benzonatate 100 MG CAP PO SCH ×3 (08:07→20:08)
--- NOTE | 2020-05-31 08:10 | RAD ---
EXAM: Single view of the chest HISTORY: Covid pneumonia status post intubation COMPARISON: 05/29/2020 FINDINGS: Single view of the chest shows a mildly enlarged but stable cardiomediastinal silhouette. There is been interval placement of an endotracheal tube with its tip at the upper border of the clavicles and abdomen NG tube which courses off the inferior aspect of the film. There are stable mu ltifocal opacities in both lung bases. Obscurity of the left hemidiaphragm could represent a small left pleural effusion. No acute osseous abnormality. IMPRESSION: 1. Appropriate position of lines and tubes 2. Multifocal infiltrates
[2020-05-31] MEDS ORDERED: Calcium Chloride 13.6 MEQ in Sodium Chloride 0.9% 100 ML IVPB SCH (09:00)
[2020-05-31] MEDS: Sodium Bicarbonate 150 MEQ in Dextrose 5% in Water 850 ML IV SCH ×2 (09:37→20:16)
--- NOTE | 2020-05-31 09:55 | PDOC.HOSPP ---
- Subjective Encounter Date: 05/31/20 Encounter Time: 11:00 Subjective: Patient stable overnight. No events. - Objective Vital Signs & Weight: Vital Signs (12 hours) Temp Resp 05/31/20 08:00 100.5 F H 22 H Weight Weight 220 lb Most Recent Monitor Data Heart Rate from ECG 77 NIBP 161/64 NIBP BP-Mean 96 Respiration from ECG 22 SpO2 100 I&O: 05/30/20 05/31/20 06/01/20 06:59 06:59 06:59 Intake Total 2669 1550 100 Output Total 1715 1395 150 Balance 954 155 -50 Result Diagrams: 05/31/20 03:57 05/31/20 03:57 Additional Labs: Accuchecks 05/31/20 05/30/20 05/30/20 04:36 21:10 17:10 POC Glucose 216 H 232 H 305 H 05/29/20 05/29/20 07:13 05:59 POC Glucose 117 H 55 L* Hospitalist ROS - Review of Systems ROS unobtainable: due to endotracheal tube - Medication Medications: Active Medications Generic Name Dose Route Start Last Admin Trade Name Freq PRN Reason Stop Dose Admin Acetaminophen 650 mg 05/29/20 09:58 05/31/20 03:20 Acetaminophen 650 Mg Suppository [place] 650 mg Q4H PRN Administration Headache/Fever or Pain Acetaminophen 650 mg 05/29/20 09:58 05/31/20 08:09 Acetaminophen 325 Mg Tab PO 650 mg Q4H PRN Administration Fever/Mild Pain Ascorbic Acid 1,000 mg 05/29/20 09:00 05/31/20 08:05 Ascorbic Acid 500 Mg Chewable Tablet PO 1,000 mg DAILY GEO Administration Benzonatate 100 mg 05/29/20 15:00 05/31/20 08:07 Benzonatate 100 Mg Cap PO Not Given TID GEO Cholecalciferol 400 units 05/29/20 09:00 05/31/20 08:06 Cholecalciferol (Vitamin D3) 400 Units Tab PO 400 units DAILY GEO Administration Dexamethasone 8 mg 05/29/20 09:00 05/31/20 08:05 Dexamethasone 4 Mg/Ml Vial SLOW IVP 8 mg DAILY GEO Administration Enoxaparin Sodium 60 mg 05/29/20 21:00 05/31/20 08:06 Enoxaparin Sodium 60 Mg/0.6 Ml Syringe SC 60 mg 0900,2100 GEO Administration Famotidine 20 mg 05/29/20 21:00 05/30/20 22:06 Famotidine/Pf 20 Mg/2ml Vial SLOW IVP 20 mg HS GEO Administration Fentanyl Citrate 2,000 mcg/ 100 mls @ 0 mls/hr 05/29/20 10:30 05/30/20 09:01 Sodium Chloride IV 06/28/20 10:30 100 mls INF GEO Administration Protocol Per Protocol Insulin Glargine 8 units/ 0.08 mls @ 0 mls/hr 05/30/20 21:00 05/30/20 22:07 Miscellaneous Medication SC 0.08 mls HS GEO Administration Calcium Chloride 13.6 meq/ 110 mls @ 100 mls/hr 05/31/20 09:00 05/31/20 09:16 Sodium Chloride IVPB 05/31/20 11:00 110 mls 0900 GEO Administration Sodium Bicarbonate 150 meq/ 1,000 mls @ 100 mls/hr 05/31/20 07:55 05/31/20 09:37 Dextrose/Water IV 1,000 mls INF GEO Administration Insulin Human Lispro 0 units 05/29/20 07:07 05/30/20 22:32 Humalog 300 Units/3 Ml Vial SC 3 unit .MILD SLIDING SCALE PRN Administration Mild Correctional Scale Lorazepam 2 mg 05/29/20 10:30 05/29/20 12:43 Lorazepam 2 Mg/Ml Vial SLOW IVP 06/28/20 10:30 2 mg Q1H PRN Administration Breakthrough agitation Propofol 1,000 mg 05/29/20 10:30 05/30/20 18:03 Propofol 1,000 Mg/100 Ml Vial IV 06/28/20 10:30 1,000 mg INF PRN Administration TO ACHIEVE GOAL RASS Protocol Sodium Chloride 10 ml 05/29/20 09:00 05/31/20 08:06 Flush - Normal Saline 10 Ml Syringe IVF 10 ml Q12HR GEO Administration Sterile Water 10 ml 05/29/20 18:49 05/29/20 20:00 Sterile Water 10 Ml Vial IVP 10 ml Q1H PRN Administration NEEDED FOR RECONSTITUTION Vecuronium [place] 10 mg 05/29/20 18:49 05/30/20 08:37 Vecuronium 10 Mg Vial IVP 10 mg Q1H PRN Administration SPASM Zinc Sulfate 220 mg 05/29/20 09:00 05/31/20 08:05 Zinc Sulfate 220 Mg Cap PO 220 mg DAILY GEO Administration - Exam General - other findings: sedated on vent ENT: moist mucosa Heart: RRR, no murmur, no gallops, no rubs Respiratory: CTAB, no wheezes, no rales, no ronchi Gastrointestinal: soft, non-tender, non-distended, normal bowel sounds Extremities: no edema Skin - other findings: face and upper torso a bit flushed, uncertain if her bas williams Psychiatric - other findings: sedated on vent Hosp A/P - Plan (1) Pneumonia due to COVID-19 virus Code(s): U07.1 - COVID-19; J12.89 - OTHER VIRAL PNEUMONIA Status: Acute (2) Acute respiratory failure with hypoxemia Code(s): J96.01 - ACUTE RESPIRATORY FAILURE WITH HYPOXIA Status: Acute (3) Diabetes mellitus Code(s): E11.9 - TYPE 2 DIABETES MELLITUS WITHOUT COMPLICATIONS Status: Chronic Qualifiers: Diabetes mellitus type: type 2 (4) Hypertension Code(s): I10 - ESSENTIAL (PRIMARY) HYPERTENSION Status: Chronic (5) Acute renal failure - Plan * Acute respiratory failure due to COVID pneumonia- she is intubated and in prone position. Continue ventilatory support. * Continue Decadron, and she has received convalesce plasma * Continue anticoagulation * Continue as per PCCM * HTN- blood pressure is stable * DM- blood glucose is trending up- will add a long acting Lantus * NATANAEL- improving- continue as per Nephrology, on bicarb drip * DVT Proph: full dose Lovenox * GI Proph: Pepcid BID
[2020-05-31] MEDS: Propofol 1,000 MG/100 ML VIAL IV PRN ×3 (12:24→23:36)
--- NOTE | 2020-05-31 12:25 | PRG ---
DATE OF SERVICE: 05/31/2020 SUBJECTIVE: . Mckeon is hemodynamically stable. OBJECTIVE: VITAL SIGNS: Heart rate is in the 60s, blood pressure 141/61, respiratory rate is 22, and oximetry is 97 to 100. LUNGS: Unchanged. HEART: Unchanged. ABDOMEN: Unchanged. LABORATORY DATA: White count 11.8, hemoglobin 9.1, and platelets 207. Electrolytes are unremarkable. BUN 51, creatinine 1.39 that had been 1.53 yesterday. Blood gas has not been done in 2 days. We will order one for tomorrow. IMPRESSION: Respiratory failure secondary to COVID pneumonia. Hopefully, she will be weanable within a few days. Critical care time 30 min. Job ID: [id number] MTDD
--- NOTE | 2020-05-31 15:19 | PDOC.NEPPN ---
- Subjective Encounter Date: 05/31/20 Subjective: Still intubated and mechanically ventilated. - Objective Vital Signs & Weight: Vital Signs (12 hours) Temp Resp Pulse Ox 05/31/20 14:00 22 H 05/31/20 12:00 99.1 F 22 H 05/31/20 10:00 22 H 05/31/20 08:00 100.5 F H 22 H 100 Weight Admit Weight 220 lb Weight 220 lb Most Recent Monitor Data Heart Rate from ECG 62 NIBP 142/67 NIBP BP-Mean 92 Respiration from ECG 15 SpO2 100 I&O: 05/30/20 05/31/20 06/01/20 06:59 06:59 06:59 Intake Total 2669 1550 1612 Output Total 1715 1395 680 Balance 954 155 932 Result Diagrams: 05/31/20 03:57 05/31/20 03:57 Additional Labs: Accuchecks 05/31/20 05/30/20 05/30/20 04:36 21:10 17:10 POC Glucose 216 H 232 H 305 H 05/29/20 05/29/20 07:13 05:59 POC Glucose 117 H 55 L* Nephrology ROS - Medication Medications: Active Medications Generic Name Dose Route Start Last Admin Trade Name Freq PRN Reason Stop Dose Admin Acetaminophen 650 mg 05/29/20 09:58 05/31/20 03:20 Acetaminophen 650 Mg Suppository ID 650 mg Q4H PRN Administration Headache/Fever or Pain Acetaminophen 650 mg 05/29/20 09:58 05/31/20 08:09 Acetaminophen 325 Mg Tab PO 650 mg Q4H PRN Administration Fever/Mild Pain Ascorbic Acid 1,000 mg 05/29/20 09:00 05/31/20 08:05 Ascorbic Acid 500 Mg Chewable Tablet PO 1,000 mg DAILY GEO Administration Benzonatate 100 mg 05/29/20 15:00 05/31/20 15:18 Benzonatate 100 Mg Cap PO Not Given TID GEO Cholecalciferol 400 units 05/29/20 09:00 05/31/20 08:06 Cholecalciferol (Vitamin D3) 400 Units Tab PO 400 units DAILY GEO Administration Dexamethasone 8 mg 05/29/20 09:00 05/31/20 08:05 Dexamethasone 4 Mg/Ml Vial SLOW IVP 8 mg DAILY GEO Administration Enoxaparin Sodium 60 mg 05/29/20 21:00 05/31/20 08:06 Enoxaparin Sodium 60 Mg/0.6 Ml Syringe SC 60 mg 0900,2100 GEO Administration Famotidine 20 mg 05/29/20 21:00 05/30/20 22:06 Famotidine/Pf 20 Mg/2ml Vial SLOW IVP 20 mg HS GEO Administration Fentanyl Citrate 2,000 mcg/ 100 mls @ 0 mls/hr 05/29/20 10:30 05/30/20 09:01 Sodium Chloride IV 06/28/20 10:30 100 mls INF GEO Administration Protocol Per Protocol Insulin Glargine 8 units/ 0.08 mls @ 0 mls/hr 05/30/20 21:00 05/30/20 22:07 Miscellaneous Medication SC 0.08 mls HS GEO Administration Sodium Bicarbonate 150 meq/ 1,000 mls @ 100 mls/hr 05/31/20 07:55 05/31/20 09:37 Dextrose/Water IV 1,000 mls INF GEO Administration Insulin Human Lispro 0 units 05/29/20 07:07 05/31/20 10:56 Humalog 300 Units/3 Ml Vial SC 2 unit .MILD SLIDING SCALE PRN Administration Mild Correctional Scale Lorazepam 2 mg 05/29/20 10:30 05/29/20 12:43 Lorazepam 2 Mg/Ml Vial SLOW IVP 06/28/20 10:30 2 mg Q1H PRN Administration Breakthrough agitation Propofol 1,000 mg 05/29/20 10:30 05/31/20 12:24 Propofol 1,000 Mg/100 Ml Vial IV 06/28/20 10:30 1,000 mg INF PRN Administration TO ACHIEVE GOAL RASS Protocol Sodium Chloride 10 ml 05/29/20 09:00 05/31/20 08:06 Flush - Normal Saline 10 Ml Syringe IVF 10 ml Q12HR GEO Administration Sterile Water 10 ml 05/29/20 18:49 05/29/20 20:00 Sterile Water 10 Ml Vial IVP 10 ml Q1H PRN Administration NEEDED FOR RECONSTITUTION Vecuronium [place] 10 mg 05/29/20 18:49 05/30/20 08:37 Vecuronium 10 Mg Vial IVP 10 mg Q1H PRN Administration SPASM Zinc Sulfate 220 mg 05/29/20 09:00 05/31/20 08:05 Zinc Sulfate 220 Mg Cap PO 220 mg DAILY GEO Administration - Exam General - other findings: sedated Eye: anicteric sclera ENT: normocephalic atraumatic ENT - other findings: Et tube in pace Neck: symmetric Respiratory - other findings: ventilator transmitted sound Cardiovascular: RRR Gastrointestinal: soft, non-distended, diminished bowl sounds Extremities - other findings: mild edema of the extremities especially hands Neurological - other findings: sedated. Nephrology Results - Labs Result Diagrams: 05/31/20 03:57 05/31/20 03:57 Lab results: WBC 11.8 thou/uL (4.8-10.8) H 05/31/20 03:57 Hgb 9.1 g/dL (12.0-16.0) L 05/31/20 03:57 Hct 27.8 % (36.0-47.0) L 05/31/20 03:57 MCV 94.1 fL (78.0-98.0) 05/31/20 03:57 Plt Count 207 thou/uL (130-400) 05/31/20 03:57 Neutrophils % 79.4 % (42.0-75.0) H 05/30/20 03:40 Band Neuts % (Manual) 15 % (5-11) H 05/31/20 03:57 ABG pH 7.31 (7.35-7.45) L 05/29/20 11:02 ABG pCO2 33.3 mmHg (35.0-45.0) L 05/29/20 11:02 ABG pO2 43.3 mmHg (80.0-100.0) L* 05/29/20 11:02 Sodium 138 mmol/L (136-145) 05/31/20 03:57 Potassium 3.9 mmol/L (3.5-5.1) 05/31/20 03:57 Chloride 104 mmol/L (98-107) 05/31/20 03:57 Carbon Dioxide 18 mmol/L (22-29) L 05/31/20 03:57 BUN 51 mg/dL (9.8-20.1) H 05/31/20 03:57 Creatinine 1.39 mg/dL (0.6-1.1) H 05/31/20 03:57 Glucose 219 mg/dL (70-105) H 05/31/20 03:57 Lactic Acid 1.9 mmol/L (0.5-2.2) 05/29/20 06:22 Calcium 7.1 mg/dL (7.8-10.44) L 05/31/20 03:57 Total Bilirubin 0.2 mg/dL (0.2-1.2) 05/29/20 06:22 AST 30 U/L (5-34) 05/29/20 06:22 ALT 28 U/L (8-55) 05/29/20 06:22 Alkaline Phosphatase 175 U/L (40-110) H 05/29/20 06:22 C-Reactive Protein 8.31 mg/dL (= or < 0.5) H 05/29/20 06:22 Serum Total Protein 5.9 g/dL (6.0-8.3) L 05/29/20 06:22 Albumin 2.7 g/dL (3.5-5.0) L 05/30/20 03:40 Urine Ketones Negative mg/dL (Negative) 05/29/20 10:30 Urine Blood 2+ (Negative) A 05/29/20 10:30 Urine Nitrite Negative (Negative) 05/29/20 10:30 Ur Leukocyte Esterase 250 Chandan/uL (Negative) A 05/29/20 10:30 Urine RBC 21-50 HPF (0-3) A 05/29/20 10:30 Urine WBC 11-20 HPF (0-3) A 05/29/20 10:30 Ur Squamous Epith Cells 0-3 HPF (0-3) 05/29/20 10:30 Urine Bacteria Rare-Few HPF (None Seen) 05/29/20 10:30 Sodium 138 mmol/L (136-145) 05/31/20 03:57 Potassium 3.9 mmol/L (3.5-5.1) 05/31/20 03:57 Chloride 104 mmol/L (98-107) 05/31/20 03:57 Carbon Dioxide 18 mmol/L (22-29) L 05/31/20 03:57 Anion Gap 20 mmol/L (10-20) 05/31/20 03:57 BUN 51 mg/dL (9.8-20.1) H 05/31/20 03:57 Creatinine 1.39 mg/dL (0.6-1.1) H 05/31/20 03:57 Glucose 219 mg/dL (70-105) H 05/31/20 03:57 Calcium 7.1 mg/dL (7.8-10.44) L 05/31/20 03:57 Phosphorus 3.3 mg/dL (2.3-4.7) 05/31/20 03:57 Magnesium 2.1 mg/dL (1.6-2.6) 05/31/20 03:57 Albumin 2.7 g/dL (3.5-5.0) L 05/30/20 03:40 Nephrology AP PN - Plan ASSESSMENT: Acute kidney injury: Most likely due to hemodynamic factors related to volume depletion and cytokine mediated injury related to sepsis. BUN/creat are trending down with bicarb infusion. Metabolic acidosis. Persistent Hypocalcemia Vitamin D deficiency Hypokalemia Anemia: Most likely anemia of acute illness. Acute respiratory failure with hypoxia requiring intubation COVID pneumonia. Hypertension: Control is acceptable Diabetes mellitus, on treatment. Plan Continue sodium bicarbonate infusion. Continue vitamin D supplementation Monitor electrolytes and replete as indicated. 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
[2020-05-31] MEDS: fentaNYL Citrate/PF 2,000 MCG in Sodium Chloride 0.9% 60 ML IV SCH (20:07)
[2020-05-31] MEDS: Famotidine/PF 20 mg/2ml Vial SLOW IVP SCH (20:08)
[2020-05-31] MEDS: Insulin Glargine 8 UNITS in Pre-Filled Syringe 1 EACH SC SCH (20:08)
[2020-05-31] MEDS: Lorazepam 2 MG/ML VIAL SLOW IVP PRN (23:36)
[2020-06-01] MEDS: HumaLOG 300 UNITS/3 ML VIAL SC PRN ×4 (00:22→21:27)
[2020-06-01] MEDS: Acetaminophen 325 MG TAB PO PRN (04:00)
[2020-06-01] MEDS: Propofol 1,000 MG/100 ML VIAL IV PRN ×4 (05:08→22:33)
[2020-06-01 05:10] LABS: Band 6 % (5-11); Hemoglobin 8.8 g/dL (12.0-16.0); Hypochromia SLIGHT = 6-15 cells (100X) (0-5/hpf); Lymphocytes 5 % (21-51); MDiff Complete? YES; Mean Corpuscular HGB CONC 33.6 g/dL (32.0-36.0); Mean Corpuscular Hemoglobin 32.3 pg (27.0-31.0); Mean Corpuscular Volume 95.9 fL (78.0-98.0); Mean Platelet Volume 10.9 fL (7.4-10.4); Monocytes 2 % (0-10); Neutrophil 87 % (42-75); Platelet Count 223 thou/uL (130-400); Platelet Morphology Comment Appears Adequate; RBC Distribution Width 12.9 % (11.5-14.5); Red Blood Cell (RBC) Count 2.72 mill/uL (4.20-5.40); White Blood Cell (WBC) Count 10.1 thou/uL (4.8-10.8)
[2020-06-01 05:18] LABS: Anion Gap 17 mmol/L (10-20); BUN (Urea Nitrogen) 36 mg/dL (9.8-20.1); Calc. Creatinine Clearance 89 mL/min (70-130); Calcium 7.3 mg/dL (7.8-10.44); Carbon Dioxide 26 mmol/L (22-29); Chloride 100 mmol/L (98-107); Glucose 171 mg/dL (70-105); Potassium 3.1 mmol/L (3.5-5.1); Sodium 140 mmol/L (136-145)
[2020-06-01] MEDS ORDERED: Potassium Chloride 20 MEQ TAB PER TUBE SCH (06:30)
[2020-06-01 08:14] LABS: Actual Bicarbonate (HCO3a) 25.5 mEq/L (22-28); Base Excess (BEa) 5.1 mEq/L (-2.0 to +3.0); Calcium, Ionized (arterial) 0.94 mmol/L (1.12-1.30); Carboxyhemoglobin (COHb) 0.3 gm% (0.0-3.0); Hemoglobin (Hb) 9.4 g/dL (12.0-16.0); O2 Tension (PaO2), arterial 71.9 mmHg (80.0-100.0); Potassium - ABG Lab 2.78 mmol/L (3.70-5.30)
[2020-06-01 08:21] LABS: CO2 Tension 23.9 mmHg (35.0-45.0); Puncture Site LRA; pH, Arterial 7.65 (7.35-7.45)
[2020-06-01 08:22] LABS: ALV-art Gradient 219.075 mmHg (0-20)
--- NOTE | 2020-06-01 08:38 | RAD ---
PORTABLE CHEST: INDICATION: On ventilator. CCU followup. COMPARISON: 05/31/2020. FINDINGS/IMPRESSION: ET tube and NG tube remain in place. Evidence of left effusion and left basilar atelectasis obscures the left hemidiaphragm. The hazy perihilar and lower lung infiltrates appear improved when compared to yesterday's film. POS: AGW
[2020-06-01] MEDS: Enoxaparin Sodium 60 MG/0.6 ML SYRINGE SC SCH ×2 (08:50→20:46)
[2020-06-01] MEDS: Dexamethasone 4 mg/ml Vial SLOW IVP SCH (08:50)
[2020-06-01] MEDS: Benzonatate 100 MG CAP PO SCH ×3 (08:50→20:19)
[2020-06-01] MEDS: Zinc Sulfate 220 MG CAP PO SCH (08:52)
[2020-06-01] MEDS: Ascorbic Acid 500 mg Chewable Tablet PO SCH (08:54)
--- NOTE | 2020-06-01 11:49 | PDOC.NEPPN ---
- Subjective Encounter Date: 06/01/20 Subjective: Seen and examined. Still intubated. No new problem. Extubation is contemplated. - Objective Vital Signs & Weight: Vital Signs (12 hours) Temp Pulse Resp BP 06/01/20 10:00 16 06/01/20 08:00 22 H 06/01/20 06:00 22 H 06/01/20 04:00 100.0 F H 22 H 06/01/20 02:45 63 149/61 H 06/01/20 02:00 22 H 06/01/20 00:00 22 H Weight Admit Weight 220 lb Weight 227 lb 4.745 oz Most Recent Monitor Data Heart Rate from ECG 62 NIBP 136/62 NIBP BP-Mean 86 Respiration from ECG 16 SpO2 99 I&O: 05/31/20 06/01/20 06/02/20 06:59 06:59 06:59 Intake Total 1550 3877.4 0 Output Total 1395 2751 385 Balance 155 1126.4 -385 Result Diagrams: 06/01/20 03:24 06/01/20 03:24 Additional Labs: Accuchecks 06/01/20 06/01/20 06/01/20 10:29 04:09 00:12 POC Glucose 107 H 170 H 205 H 05/31/20 05/31/20 05/31/20 20:25 16:48 10:23 POC Glucose 221 H 195 H 179 H Nephrology ROS - Medication Medications: Active Medications Generic Name Dose Route Start Last Admin Trade Name Freq PRN Reason Stop Dose Admin Acetaminophen 650 mg 05/29/20 09:58 05/31/20 03:20 Acetaminophen 650 Mg Suppository [place] 650 mg Q4H PRN Administration Headache/Fever or Pain Acetaminophen 650 mg 05/29/20 09:58 06/01/20 04:00 Acetaminophen 325 Mg Tab PO 650 mg Q4H PRN Administration Fever/Mild Pain Ascorbic Acid 1,000 mg 05/29/20 09:00 06/01/20 08:54 Ascorbic Acid 500 Mg Chewable Tablet PO 1,000 mg DAILY GEO Administration Benzonatate 100 mg 05/29/20 15:00 06/01/20 08:50 Benzonatate 100 Mg Cap PO Not Given TID GEO Cholecalciferol 400 units 05/29/20 09:00 05/31/20 08:06 Cholecalciferol (Vitamin D3) 400 Units Tab PO 400 units DAILY GEO Administration Dexamethasone 8 mg 05/29/20 09:00 06/01/20 08:50 Dexamethasone 4 Mg/Ml Vial SLOW IVP 8 mg DAILY GEO Administration Enoxaparin Sodium 60 mg 05/29/20 21:00 06/01/20 08:50 Enoxaparin Sodium 60 Mg/0.6 Ml Syringe SC 60 mg 0900,2100 GEO Administration Famotidine 20 mg 05/29/20 21:00 05/31/20 20:08 Famotidine/Pf 20 Mg/2ml Vial SLOW IVP 20 mg HS GEO Administration Fentanyl Citrate 2,000 mcg/ 100 mls @ 0 mls/hr 05/29/20 10:30 05/31/20 20:07 Sodium Chloride IV 06/28/20 10:30 100 mls INF GEO Administration Protocol Per Protocol Insulin Glargine 8 units/ 0.08 mls @ 0 mls/hr 05/30/20 21:00 05/31/20 20:08 Miscellaneous Medication SC 0.08 mls HS GEO Administration Insulin Human Lispro 0 units 05/29/20 07:07 06/01/20 04:52 Humalog 300 Units/3 Ml Vial SC 2 unit .MILD SLIDING SCALE PRN Administration Mild Correctional Scale Lorazepam 2 mg 05/29/20 10:30 05/31/20 23:36 Lorazepam 2 Mg/Ml Vial SLOW IVP 06/28/20 10:30 2 mg Q1H PRN Administration Breakthrough agitation Propofol 1,000 mg 05/29/20 10:30 06/01/20 11:03 Propofol 1,000 Mg/100 Ml Vial IV 06/28/20 10:30 1,000 mg INF PRN Administration TO ACHIEVE GOAL RASS Protocol Sodium Chloride 10 ml 05/29/20 09:00 06/01/20 08:51 Flush - Normal Saline 10 Ml Syringe IVF 10 ml Q12HR GEO Administration Sterile Water 10 ml 05/29/20 18:49 05/29/20 20:00 Sterile Water 10 Ml Vial IVP 10 ml Q1H PRN Administration NEEDED FOR RECONSTITUTION Vecuronium [place] 10 mg 05/29/20 18:49 05/30/20 08:37 Vecuronium 10 Mg Vial IVP 10 mg Q1H PRN Administration SPASM Zinc Sulfate 220 mg 05/29/20 09:00 06/01/20 08:52 Zinc Sulfate 220 Mg Cap PO 220 mg DAILY GEO Administration - Exam General - other findings: Sedated. ENT: normocephalic atraumatic ENT - other findings: ET tube in place Respiratory - other findings: Ventilator transmitted sound noted Cardiovascular: RRR Gastrointestinal: soft, non-distended Extremities - other findings: trace edema Neurological - other findings: Sedated. Nephrology Results - Labs Result Diagrams: 06/01/20 03:24 06/01/20 03:24 Lab results: WBC 10.1 thou/uL (4.8-10.8) 06/01/20 03:24 Hgb 8.8 g/dL (12.0-16.0) L 06/01/20 03:24 Hct 26.1 % (36.0-47.0) L 06/01/20 03:24 MCV 95.9 fL (78.0-98.0) 06/01/20 03:24 Plt Count 223 thou/uL (130-400) 06/01/20 03:24 Neutrophils % 79.4 % (42.0-75.0) H 05/30/20 03:40 Band Neuts % (Manual) 6 % (5-11) 06/01/20 03:24 ABG pH 7.65 (7.35-7.45) H* 06/01/20 07:55 ABG pCO2 23.9 mmHg (35.0-45.0) L* 06/01/20 07:55 ABG pO2 71.9 mmHg (80.0-100.0) L 06/01/20 07:55 Sodium 140 mmol/L (136-145) 06/01/20 03:24 Potassium 3.1 mmol/L (3.5-5.1) L 06/01/20 03:24 Chloride 100 mmol/L (98-107) 06/01/20 03:24 Carbon Dioxide 26 mmol/L (22-29) 06/01/20 03:24 BUN 36 mg/dL (9.8-20.1) H 06/01/20 03:24 Creatinine 1.16 mg/dL (0.6-1.1) H 06/01/20 03:24 Glucose 171 mg/dL (70-105) H 06/01/20 03:24 Lactic Acid 1.9 mmol/L (0.5-2.2) 05/29/20 06:22 Calcium 7.3 mg/dL (7.8-10.44) L 06/01/20 03:24 Total Bilirubin 0.2 mg/dL (0.2-1.2) 05/29/20 06:22 AST 30 U/L (5-34) 05/29/20 06:22 ALT 28 U/L (8-55) 05/29/20 06:22 Alkaline Phosphatase 175 U/L (40-110) H 05/29/20 06:22 C-Reactive Protein 8.31 mg/dL (= or < 0.5) H 05/29/20 06:22 Serum Total Protein 5.9 g/dL (6.0-8.3) L 05/29/20 06:22 Albumin 2.7 g/dL (3.5-5.0) L 05/30/20 03:40 Urine Ketones Negative mg/dL (Negative) 05/29/20 10:30 Urine Blood 2+ (Negative) A 05/29/20 10:30 Urine Nitrite Negative (Negative) 05/29/20 10:30 Ur Leukocyte Esterase 250 Chandan/uL (Negative) A 05/29/20 10:30 Urine RBC 21-50 HPF (0-3) A 05/29/20 10:30 Urine WBC 11-20 HPF (0-3) A 05/29/20 10:30 Ur Squamous Epith Cells 0-3 HPF (0-3) 05/29/20 10:30 Urine Bacteria Rare-Few HPF (None Seen) 05/29/20 10:30 Sodium 140 mmol/L (136-145) 06/01/20 03:24 Potassium 3.1 mmol/L (3.5-5.1) L 06/01/20 03:24 Chloride 100 mmol/L (98-107) 06/01/20 03:24 Carbon Dioxide 26 mmol/L (22-29) 06/01/20 03:24 Anion Gap 17 mmol/L (10-20) 06/01/20 03:24 BUN 36 mg/dL (9.8-20.1) H 06/01/20 03:24 Creatinine 1.16 mg/dL (0.6-1.1) H 06/01/20 03:24 Glucose 171 mg/dL (70-105) H 06/01/20 03:24 Calcium 7.3 mg/dL (7.8-10.44) L 06/01/20 03:24 Phosphorus 3.3 mg/dL (2.3-4.7) 05/31/20 03:57 Magnesium 2.1 mg/dL (1.6-2.6) 05/31/20 03:57 Albumin 2.7 g/dL (3.5-5.0) L 05/30/20 03:40 Nephrology AP PN - Plan ASSESSMENT: Acute kidney injury: Most likely due to hemodynamic factors related to volume depletion and cytokine mediated injury related to sepsis. BUN/creat are trending down with bicarb infusion. Metabolic acidosis. Resolved with alkali therapy Hypocalcemia Vitamin D deficiency Hypokalemia: recurrent. Anemia: Most likely anemia of acute illness. Acute respiratory failure with hypoxia requiring intubation COVID pneumonia. Hypertension: Control is acceptable Diabetes mellitus, on treatment. Plan Replete serum potassium. Discontinue sodium bicarbonate infusion. Continue vitamin D supplementation Monitor electrolytes and replete as indicated. Other treatments as per primary attending and hospital cook.
[2020-06-01] MEDS: Cholecalciferol (Vitamin D3) 400 UNITS TAB PO SCH (12:46)
--- NOTE | 2020-06-01 13:04 | PDOC.HOSPP ---
- Subjective Encounter Date: 06/01/20 Encounter Time: 13:03 Subjective: Ms. Mckeon was seen today in follow-up of acute respiratory failure due to COVID pneumonia. She remains intubated, but is no olonger in prone position. No complaints voiced by staff, - Objective Vital Signs & Weight: Vital Signs (12 hours) Temp Pulse Resp BP Pulse Ox 06/01/20 12:00 16 06/01/20 10:00 16 06/01/20 08:30 99 06/01/20 08:00 22 H 06/01/20 06:00 22 H 06/01/20 04:00 100.0 F H 22 H 06/01/20 02:45 63 149/61 H 06/01/20 02:00 22 H Weight Admit Weight 220 lb Weight 227 lb 4.745 oz Most Recent Monitor Data Heart Rate from ECG 62 NIBP 136/62 NIBP BP-Mean 86 Respiration from ECG 16 SpO2 99 I&O: 05/31/20 06/01/20 06/02/20 06:59 06:59 06:59 Intake Total 1550 3877.4 0 Output Total 1395 2751 730 Balance 155 1126.4 -730 Result Diagrams: 06/01/20 03:24 06/01/20 03:24 Additional Labs: Accuchecks 06/01/20 06/01/20 06/01/20 10:29 04:09 00:12 POC Glucose 107 H 170 H 205 H 05/31/20 05/31/20 05/31/20 20:25 16:48 10:23 POC Glucose 221 H 195 H 179 H Hospitalist ROS - Medication Medications: Active Medications Generic Name Dose Route Start Last Admin Trade Name Freq PRN Reason Stop Dose Admin Acetaminophen 650 mg 05/29/20 09:58 05/31/20 03:20 Acetaminophen 650 Mg Suppository [place] 650 mg Q4H PRN Administration Headache/Fever or Pain Acetaminophen 650 mg 05/29/20 09:58 06/01/20 04:00 Acetaminophen 325 Mg Tab PO 650 mg Q4H PRN Administration Fever/Mild Pain Ascorbic Acid 1,000 mg 05/29/20 09:00 06/01/20 08:54 Ascorbic Acid 500 Mg Chewable Tablet PO 1,000 mg DAILY GEO Administration Benzonatate 100 mg 05/29/20 15:00 06/01/20 08:50 Benzonatate 100 Mg Cap PO Not Given TID GEO Cholecalciferol 400 units 05/29/20 09:00 06/01/20 12:46 Cholecalciferol (Vitamin D3) 400 Units Tab PO 400 units DAILY GEO Administration Dexamethasone 8 mg 05/29/20 09:00 06/01/20 08:50 Dexamethasone 4 Mg/Ml Vial SLOW IVP 8 mg DAILY GEO Administration Enoxaparin Sodium 60 mg 05/29/20 21:00 06/01/20 08:50 Enoxaparin Sodium 60 Mg/0.6 Ml Syringe SC 60 mg 09,2099 GEO Administration Famotidine 20 mg 05/29/20 21:00 05/31/20 20:08 Famotidine/Pf 20 Mg/2ml Vial SLOW IVP 20 mg HS GEO Administration Fentanyl Citrate 2,000 mcg/ 100 mls @ 0 mls/hr 05/29/20 10:30 05/31/20 20:07 Sodium Chloride IV 06/28/20 10:30 100 mls INF GEO Administration Protocol Per Protocol Insulin Glargine 8 units/ 0.08 mls @ 0 mls/hr 05/30/20 21:00 05/31/20 20:08 Miscellaneous Medication SC 0.08 mls HS GEO Administration Insulin Human Lispro 0 units 05/29/20 07:07 06/01/20 04:52 Humalog 300 Units/3 Ml Vial SC 2 unit .MILD SLIDING SCALE PRN Administration Mild Correctional Scale Lorazepam 2 mg 05/29/20 10:30 05/31/20 23:36 Lorazepam 2 Mg/Ml Vial SLOW IVP 06/28/20 10:30 2 mg Q1H PRN Administration Breakthrough agitation Propofol 1,000 mg 05/29/20 10:30 06/01/20 11:03 Propofol 1,000 Mg/100 Ml Vial IV 06/28/20 10:30 1,000 mg INF PRN Administration TO ACHIEVE GOAL RASS Protocol Sodium Chloride 10 ml 05/29/20 09:00 06/01/20 08:51 Flush - Normal Saline 10 Ml Syringe IVF 10 ml Q12HR GEO Administration Sterile Water 10 ml 05/29/20 18:49 05/29/20 20:00 Sterile Water 10 Ml Vial IVP 10 ml Q1H PRN Administration NEEDED FOR RECONSTITUTION Vecuronium [place] 10 mg 05/29/20 18:49 12/27/20 08:37 Vecuronium 10 Mg Vial IVP 10 mg Q1H PRN Administration SPASM Zinc Sulfate 220 mg 05/29/20 09:00 06/01/20 08:52 Zinc Sulfate 220 Mg Cap PO 220 mg DAILY GEO Administration - Exam Eye: PERRL, anicteric sclera Heart: RRR, no murmur, no gallops, no rubs, normal peripheral pulses Respiratory: rales, rhonchi (+ basilar ralesa and rhonchi) Gastrointestinal: soft, non-tender, non-distended, normal bowel sounds, no palpable masses, no hepatomegaly Extremities: no cyanosis (+ palpable d.p. pulses), 1+ LE edema Hosp A/P (1) Pneumonia due to COVID-19 virus Code(s): U07.1 - COVID-19; J12.89 - OTHER VIRAL PNEUMONIA Status: Acute (2) Acute respiratory failure with hypoxemia Code(s): J96.01 - ACUTE RESPIRATORY FAILURE WITH HYPOXIA Status: Acute (3) Diabetes mellitus Code(s): E11.9 - TYPE 2 DIABETES MELLITUS WITHOUT COMPLICATIONS Status: Chronic Qualifiers: Diabetes mellitus type: type 2 (4) Hypertension Code(s): I10 - ESSENTIAL (PRIMARY) HYPERTENSION Status: Chronic - Plan * Acute respiratory failure due to COVID pneumonia- she is intubated Continue v entilatory support * Continue Decadron, and she has received convalesce plasma * Continue anticoagulation * Continue as per PCCM * HTN- blood pressure is stable * DM- blood glucose is stable continue the current regimen, and SSI * [place]- improving- demonstrates continued improvement
--- NOTE | 2020-06-01 17:48 | PRG ---
DATE OF SERVICE: 06/01/2020 SUBJECTIVE: [facility] remains mechanically ventilated in supine position. OBJECTIVE: VITAL SIGNS: Heart rate is 60, blood pressure 139/64, respiratory rate is 16, and oximetry is 98. HEENT: Pupils are equal. LUNGS: Clear. HEART: Regular rate and rhythm. ABDOMEN: Soft. LABORATORY DATA: White count 10.1, hemoglobin 8.8, and platelets 223. Sodium 140, potassium 3.1, chloride 100, bicarb 26, BUN 36, and creatinine 1.16. Blood gas; pH 7.65, CO2 of 23, PO2 71. Ventilatory rate has been decreased dramatically. IMPRESSION: COVID pneumonia, status post intubation for respiratory muscle fatigue, clinically doing well. Probably, place her on Precedex drip tomorrow and dramatically decrease in mechanical ventilation. Hopefully, will be extubated the following day. Critical care time 35 min. Job ID: [id number] MTDD
[2020-06-01] MEDS: Famotidine/PF 20 mg/2ml Vial SLOW IVP SCH (20:46)
[2020-06-01] MEDS: Insulin Glargine 8 UNITS in Pre-Filled Syringe 1 EACH SC SCH (20:46)
[2020-06-01] MEDS: fentaNYL Citrate/PF 2,000 MCG in Sodium Chloride 0.9% 60 ML IV SCH (22:35)
[2020-06-02 04:01] LABS: Band 17 % (5-11); Lymphocytes 2 % (21-51); MDiff Complete? YES; Mean Corpuscular HGB CONC 31.7 g/dL (32.0-36.0); Mean Corpuscular Hemoglobin 30.9 pg (27.0-31.0); Mean Corpuscular Volume 97.5 fL (78.0-98.0); Mean Platelet Volume 11.2 fL (7.4-10.4); Neutrophil 81 % (42-75); Platelet Count 218 thou/uL (130-400); Platelet Morphology Comment Appears Adequate; RBC Distribution Width 14.4 % (11.5-14.5); White Blood Cell (WBC) Count 14.8 thou/uL (4.8-10.8)
[2020-06-02] MEDS: HumaLOG 300 UNITS/3 ML VIAL SC PRN ×4 (04:19→22:30)
[2020-06-02 05:11] LABS: Chloride 103 mmol/L (98-107)
[2020-06-02 05:12] LABS: Calcium 7.3 mg/dL (7.8-10.44); Potassium 3.4 mmol/L (3.5-5.1); Sodium 139 mmol/L (136-145)
[2020-06-02 05:13] LABS: Glucose 279 mg/dL (70-105)
[2020-06-02 05:14] LABS: Anion Gap 16 mmol/L (10-20); Carbon Dioxide 23 mmol/L (22-29)
[2020-06-02 05:16] LABS: Calc. Creatinine Clearance 102 mL/min (70-130)
[2020-06-02 05:17] LABS: BUN (Urea Nitrogen) 29 mg/dL (9.8-20.1)
[2020-06-02 05:18] LABS: Magnesium 2.3 mg/dL (1.6-2.6)
[2020-06-02] MEDS ORDERED: Potassium Chloride 20 MEQ TAB PO SCH ×2 (05:30→12:30)
[2020-06-02] MEDS: Propofol 1,000 MG/100 ML VIAL IV PRN (05:48)
[2020-06-02] MEDS: Cholecalciferol (Vitamin D3) 400 UNITS TAB PO SCH (08:33)
[2020-06-02] MEDS: Ascorbic Acid 500 mg Chewable Tablet PO SCH (08:33)
[2020-06-02] MEDS: Benzonatate 100 MG CAP PO SCH ×3 (08:34→17:59)
[2020-06-02] MEDS: Enoxaparin Sodium 60 MG/0.6 ML SYRINGE SC SCH ×2 (08:34→20:04)
[2020-06-02] MEDS: Zinc Sulfate 220 MG CAP PO SCH (08:34)
[2020-06-02] MEDS: Dexamethasone 4 mg/ml Vial SLOW IVP SCH (08:34)
[2020-06-02 08:54] LABS: Actual Bicarbonate (HCO3a) 24.1 mEq/L (22-28); Base Excess (BEa) 1.6 mEq/L (-2.0 to +3.0); CO2 Tension 30.1 mmHg (35.0-45.0); Calcium, Ionized (arterial) 0.99 mmol/L (1.12-1.30); Carboxyhemoglobin (COHb) 0.3 gm% (0.0-3.0); Hemoglobin (Hb) 9.5 g/dL (12.0-16.0); pH, Arterial 7.52 (7.35-7.45)
--- NOTE | 2020-06-02 09:29 | PDOC.NEPPN ---
- Subjective Encounter Date: 06/02/20 Subjective: Still intubated. No new problem. - Objective Vital Signs & Weight: Vital Signs (12 hours) Resp 06/02/20 08:00 16 06/02/20 06:00 16 06/02/20 04:00 16 06/02/20 02:00 16 06/02/20 00:00 16 06/01/20 22:00 16 Weight Admit Weight 220 lb Weight 226 lb 10.163 oz Most Recent Monitor Data Heart Rate from ECG 61 NIBP 146/66 NIBP BP-Mean 92 Respiration from ECG 16 SpO2 100 I&O: 06/01/20 06/02/20 06/03/20 06:59 06:59 06:59 Intake Total 3877.4 1085.5 0 Output Total 2751 2590 85 Balance 1126.4 -1504.5 -85 Result Diagrams: 06/02/20 03:20 06/02/20 11:15 Additional Labs: Accuchecks 06/02/20 06/01/20 06/01/20 04:18 21:12 16:16 POC Glucose 265 H 234 H 258 H 06/01/20 10:29 POC Glucose 107 H Nephrology ROS - Medication Medications: Active Medications Generic Name Dose Route Start Last Admin Trade Name Freq PRN Reason Stop Dose Admin Acetaminophen 650 mg 05/29/20 09:58 05/31/20 03:20 Acetaminophen 650 Mg Suppository [place] 650 mg Q4H PRN Administration Headache/Fever or Pain Acetaminophen 650 mg 05/29/20 09:58 06/01/20 04:00 Acetaminophen 325 Mg Tab PO 650 mg Q4H PRN Administration Fever/Mild Pain Ascorbic Acid 1,000 mg 05/29/20 09:00 06/02/20 08:33 Ascorbic Acid 500 Mg Chewable Tablet PO 1,000 mg DAILY GEO Administration Benzonatate 100 mg 05/29/20 15:00 06/02/20 08:34 Benzonatate 100 Mg Cap PO Not Given TID GOE Cholecalciferol 400 units 05/29/20 09:00 06/02/20 08:33 Cholecalciferol (Vitamin D3) 400 Units Tab PO 400 units DAILY GEO Administration Dexamethasone 8 mg 05/29/20 09:00 06/02/20 08:34 Dexamethasone 4 Mg/Ml Vial SLOW IVP 8 mg DAILY GEO Administration Enoxaparin Sodium 60 mg 05/29/20 21:00 06/02/20 08:34 Enoxaparin Sodium 60 Mg/0.6 Ml Syringe SC 60 mg 0900,2100 GEO Administration Famotidine 20 mg 05/29/20 21:00 06/01/20 20:46 Famotidine/Pf 20 Mg/2ml Vial SLOW IVP 20 mg HS GEO Administration Fentanyl Citrate 2,000 mcg/ 100 mls @ 0 mls/hr 05/29/20 10:30 06/01/20 22:35 Sodium Chloride IV 06/28/20 10:30 100 mls INF GEO Administration Protocol Per Protocol Insulin Glargine 8 units/ 0.08 mls @ 0 mls/hr 05/30/20 21:00 06/01/20 20:46 Miscellaneous Medication SC 0.08 mls HS GEO Administration Insulin Human Lispro 0 units 05/29/20 07:07 06/02/20 04:19 Humalog 300 Units/3 Ml Vial SC 4 unit .MILD SLIDING SCALE PRN Administration Mild Correctional Scale Lorazepam 2 mg 05/29/20 10:30 05/31/20 23:36 Lorazepam 2 Mg/Ml Vial SLOW IVP 06/28/20 10:30 2 mg Q1H PRN Administration Breakthrough agitation Propofol 1,000 mg 05/29/20 10:30 06/02/20 05:48 Propofol 1,000 Mg/100 Ml Vial IV 06/28/20 10:30 1,000 mg INF PRN Administration TO ACHIEVE GOAL RASS Protocol Sodium Chloride 10 ml 05/29/20 09:00 06/02/20 08:34 Flush - Normal Saline 10 Ml Syringe IVF 10 ml Q12HR GEO Administration Sterile Water 10 ml 05/29/20 18:49 05/29/20 20:00 Sterile Water 10 Ml Vial IVP 10 ml Q1H PRN Administration NEEDED FOR RECONSTITUTION Vecuronium [place] 10 mg 05/29/20 18:49 05/30/20 08:37 Vecuronium 10 Mg Vial IVP 10 mg Q1H PRN Administration SPASM Zinc Sulfate 220 mg 05/29/20 09:00 06/02/20 08:34 Zinc Sulfate 220 Mg Cap PO 220 mg DAILY GEO Administration - Exam General - other findings: sedated Eye: anicteric sclera ENT: normocephalic atraumatic ENT - other findings: T tube in place Respiratory - other findings: ventilator transmitted Cardiovascular: RRR Gastrointestinal: soft, non-distended Extremities - other findings: extremity fullness noted Neurological - other findings: sedated. Nephrology Results - Labs Result Diagrams: 06/02/20 03:20 06/02/20 11:15 Lab results: WBC 14.8 thou/uL (4.8-10.8) H 06/02/20 03:20 Hgb 9.0 g/dL (12.0-16.0) L 06/02/20 03:20 Hct 28.2 % (36.0-47.0) L 06/02/20 03:20 MCV 97.5 fL (78.0-98.0) 06/02/20 03:20 Plt Count 218 thou/uL (130-400) 06/02/20 03:20 Neutrophils % 79.4 % (42.0-75.0) H 05/30/20 03:40 Band Neuts % (Manual) 17 % (5-11) H 06/02/20 03:20 ABG pH 7.65 (7.35-7.45) H* 06/01/20 07:55 ABG pCO2 23.9 mmHg (35.0-45.0) L* 06/01/20 07:55 ABG pO2 71.9 mmHg (80.0-100.0) L 06/01/20 07:55 Sodium 139 mmol/L (136-145) 06/02/20 04:00 Potassium 3.4 mmol/L (3.5-5.1) L 06/02/20 04:00 Chloride 103 mmol/L (98-107) 06/02/20 04:00 Carbon Dioxide 23 mmol/L (22-29) 06/02/20 04:00 BUN 29 mg/dL (9.8-20.1) H 06/02/20 04:00 Creatinine 1.01 mg/dL (0.6-1.1) 06/02/20 04:00 Glucose 279 mg/dL (70-105) H 06/02/20 04:00 Lactic Acid 1.9 mmol/L (0.5-2.2) 05/29/20 06:22 Calcium 7.3 mg/dL (7.8-10.44) L 06/02/20 04:00 Total Bilirubin 0.2 mg/dL (0.2-1.2) 05/29/20 06:22 AST 30 U/L (5-34) 05/29/20 06:22 ALT 28 U/L (8-55) 05/29/20 06:22 Alkaline Phosphatase 175 U/L (40-110) H 05/29/20 06:22 C-Reactive Protein 8.31 mg/dL (= or < 0.5) H 05/29/20 06:22 Serum Total Protein 5.9 g/dL (6.0-8.3) L 05/29/20 06:22 Albumin 2.7 g/dL (3.5-5.0) L 05/30/20 03:40 Urine Ketones Negative mg/dL (Negative) 05/29/20 10:30 Urine Blood 2+ (Negative) A 05/29/20 10:30 Urine Nitrite Negative (Negative) 05/29/20 10:30 Ur Leukocyte Esterase 250 Chandan/uL (Negative) A 05/29/20 10:30 Urine RBC 21-50 HPF (0-3) A 05/29/20 10:30 Urine WBC 11-20 HPF (0-3) A 05/29/20 10:30 Ur Squamous Epith Cells 0-3 HPF (0-3) 05/29/20 10:30 Urine Bacteria Rare-Few HPF (None Seen) 05/29/20 10:30 Sodium 139 mmol/L (136-145) 06/02/20 04:00 Potassium 3.4 mmol/L (3.5-5.1) L 06/02/20 04:00 Chloride 103 mmol/L (98-107) 06/02/20 04:00 Carbon Dioxide 23 mmol/L (22-29) 06/02/20 04:00 Anion Gap 16 mmol/L (10-20) 06/02/20 04:00 BUN 29 mg/dL (9.8-20.1) H 06/02/20 04:00 Creatinine 1.01 mg/dL (0.6-1.1) 06/02/20 04:00 Glucose 279 mg/dL (70-105) H 06/02/20 04:00 Calcium 7.3 mg/dL (7.8-10.44) L 06/02/20 04:00 Phosphorus 3.3 mg/dL (2.3-4.7) 05/31/20 03:57 Magnesium 2.3 mg/dL (1.6-2.6) 06/02/20 04:00 Albumin 2.7 g/dL (3.5-5.0) L 05/30/20 03:40 Nephrology AP PN - Plan ASSESSMENT: Acute kidney injury: Most likely due to hemodynamic factors related to volume depletion and cytokine mediated injury related to sepsis. Resolved. Metabolic acidosis. Resolved with alkali therapy Hypocalcemia Vitamin D deficiency Hypokalemia: recurrent. Anemia: Most likely anemia of acute illness. Acute respiratory failure with hypoxia requiring intubation COVID pneumonia. Hypertension: Control is acceptable Diabetes mellitus, on treatment. Plan Replete serum potassium. Continue vitamin D supplementation Monitor electrolytes and replete as indicated. Other treatments as per primary attending and provider contracting consultant. Nephrology will sign off. Call for any question.
--- NOTE | 2020-06-02 10:52 | RAD ---
PORTABLE CHEST: INDICATION: CCU followup on ventilator. COMPARISON: 06/01/2020. FINDINGS: Left basilar opacification obscuring the left hemidiaphragm consistent with atelectasis and consolida tion with associated left effusion. Hazy left perihilar infiltrate. Right lung remains clear. No significant interval change. POS: AGW
[2020-06-02 12:11] LABS: Potassium 3.3 mmol/L (3.5-5.1)
[2020-06-02] MEDS ORDERED: Potassium Bicarbonate/Cit Ac 20 MEQ TAB PER TUBE SCH (13:30)
[2020-06-02 14:05] LABS: Puncture Site LRA
[2020-06-02 14:06] LABS: ALV-art Gradient 215.225 mmHg (0-20)
--- NOTE | 2020-06-02 14:48 | PRG ---
DATE OF SERVICE: 06/02/2020 SUBJECTIVE: [place] Mckeon continues to improve. Her exhaled tidal volume has gotten up to almost 800 mL on bilevel ventilation, so we are switching her to volume ventilation and decreasing her PEEP. Hopefully, we can start her on Precedex and consider weaning in the next day or two. OBJECTIVE: LUNGS: Otherwise unchanged. HEART: Otherwise unchanged. ABDOMEN: Otherwise unchanged. LABORATORY DATA: There are no new significant lab findings. Her hemoglobin is stable at 9 g. Electrolytes are unremarkable. Her potassium is a little low, but not significant. Glucoses are in the 200 range. ASSESSMENT AND PLAN: We will reassess her in the morning for spontaneous breathing trial. Critical care time 30 min. Job ID: [id number] MTDD
[2020-06-02 17:01] LABS: Bacteria/HPF None Seen HPF (None Seen); Bilirubin Negative (Negative); Blood, Urine 3+ (Negative); Clarity Turbid (Clear); Glucose, Urine (Dipstick) Normal (Negative); Ketone, Urine Negative (Negative); Leukocyte 25 Leu/uL (Negative); Nitrite Negative (Negative); Protein, Urine (Dipstick) 100 mg/dL (Neg-Trace); RBC/HPF Greater than 50 HPF (0-3); Specific Gravity, Urine 1.025 (1.002-1.036); Squamous Epithelial 0-3 HPF (0-3); Urobilinogen 6 mg/dL (Less than 2)
[2020-06-02 18:56] LABS: Potassium 4.5 mmol/L (3.5-5.1)
[2020-06-02] MEDS: Famotidine/PF 20 mg/2ml Vial SLOW IVP SCH (20:04)
[2020-06-02] MEDS: Insulin Glargine 8 UNITS in Pre-Filled Syringe 1 EACH SC SCH (20:05)
[2020-06-03 04:48] LABS: Anion Gap 14 mmol/L (10-20); BUN (Urea Nitrogen) 34 mg/dL (9.8-20.1); Calc. Creatinine Clearance 117 mL/min (70-130); Calcium 7.1 mg/dL (7.8-10.44); Carbon Dioxide 24 mmol/L (22-29); Chloride 105 mmol/L (98-107); Glucose 262 mg/dL (70-105); Potassium 4.3 mmol/L (3.5-5.1); Sodium 139 mmol/L (136-145)
[2020-06-03 04:51] LABS: Band 1 % (5-11); Hemoglobin 8.4 g/dL (12.0-16.0); Hypochromia SLIGHT = 6-15 cells (100X) (0-5/hpf); Lymphocytes 10 % (21-51); MDiff Complete? YES; Mean Corpuscular HGB CONC 32.7 g/dL (32.0-36.0); Mean Corpuscular Hemoglobin 31.9 pg (27.0-31.0); Mean Corpuscular Volume 97.6 fL (78.0-98.0); Mean Platelet Volume 10.4 fL (7.4-10.4); Monocytes 2 % (0-10); Neutrophil 87 % (42-75); Platelet Count 281 thou/uL (130-400); Platelet Morphology Comment Appears Adequate; RBC Distribution Width 12.9 % (11.5-14.5); Red Blood Cell (RBC) Count 2.62 mill/uL (4.20-5.40); White Blood Cell (WBC) Count 14.2 thou/uL (4.8-10.8)
[2020-06-03] MEDS: HumaLOG 300 UNITS/3 ML VIAL SC PRN ×4 (05:53→21:41)
--- NOTE | 2020-06-03 08:20 | RAD ---
Portable frontal chest radiograph: 06/03/2020 COMPARISON: 06/02/2020 HISTORY: Ventilated patient FINDINGS: Stable endotracheal tube and nasogastric tube. Persistent pulmonary vascular congestion wit h nonspecific interstitial opacity in the perihilar regions. Dense consolidative change again noted within the left lung base. Bibasilar airspace disease again noted with probable stable left pleural e ffusion. IMPRESSION: No significant interval change.
[2020-06-03 08:27] LABS: Actual Bicarbonate (HCO3a) 24.2 mEq/L (22-28); Base Excess (BEa) -0.1 mEq/L (-2.0 to +3.0); CO2 Tension 38.1 mmHg (35.0-45.0); Calcium, Ionized (arterial) 1.01 mmol/L (1.12-1.30); Carboxyhemoglobin (COHb) 0.5 gm% (0.0-3.0); Hemoglobin (Hb) 8.6 g/dL (12.0-16.0); Potassium - ABG Lab 3.79 mmol/L (3.70-5.30); pH, Arterial 7.42 (7.35-7.45)
[2020-06-03 09:03] LABS: O2 Tension (PaO2), arterial 58.7 mmHg (80.0-100.0); Puncture Site LRA
[2020-06-03 09:04] LABS: ALV-art Gradient 214.525 mmHg (0-20)
[2020-06-03] MEDS: Ascorbic Acid 500 mg Chewable Tablet PO SCH (09:29)
[2020-06-03] MEDS: Enoxaparin Sodium 60 MG/0.6 ML SYRINGE SC SCH ×2 (09:29→21:19)
[2020-06-03] MEDS: Dexamethasone 4 mg/ml Vial SLOW IVP SCH (09:29)
[2020-06-03] MEDS: Zinc Sulfate 220 MG CAP PO SCH (09:30)
[2020-06-03] MEDS: Benzonatate 100 MG CAP PO SCH ×3 (09:51→21:13)
[2020-06-03] MEDS: Cholecalciferol (Vitamin D3) 400 UNITS TAB PO SCH (09:54)
--- NOTE | 2020-06-03 15:03 | PDOC.HOSPP ---
- Subjective Encounter Date: 06/03/20 Encounter Time: 14:43 Subjective: sedated, minimally responsive - Objective Vital Signs & Weight: Vital Signs (12 hours) Pulse Resp BP Pulse Ox 06/03/20 14:33 69 145/69 H 06/03/20 14:00 18 06/03/20 12:00 25 H 06/03/20 11:01 70 142/65 H 06/03/20 10:00 18 06/03/20 08:00 22 H 94 L 06/03/20 07:03 67 136/63 06/03/20 06:00 24 H 06/03/20 04:00 22 H Weight Admit Weight 220 lb Weight 223 lb 5.252 oz Most Recent Monitor Data Heart Rate from ECG 70 NIBP 145/69 NIBP BP-Mean 94 Respiration from ECG 18 SpO2 93 I&O: 06/02/20 06/03/20 06/04/20 06:59 06:59 06:59 Intake Total 1085.5 1223.2 120 Output Total 2590 1033 320 Balance -1504.5 190.2 -200 Result Diagrams: 06/03/20 04:10 06/03/20 04:10 Additional Labs: Accuchecks 06/03/20 06/02/20 06/02/20 10:01 22:29 16:13 POC Glucose 270 H 248 H 208 H Hospitalist ROS - Medication Medications: Active Medications Generic Name Dose Route Start Last Admin Trade Name Freq PRN Reason Stop Dose Admin Acetaminophen 650 mg 05/29/20 09:58 05/31/20 03:20 Acetaminophen [address] 650 mg Q4H PRN Administration Headache/Fever or Pain Acetaminophen 650 mg 05/29/20 09:58 06/01/20 04:00 Acetaminophen 325 Mg Tab PO 650 mg Q4H PRN Administration Fever/Mild Pain Ascorbic Acid 1,000 mg 05/29/20 09:00 06/03/20 09:29 Ascorbic Acid 500 Mg Chewable Tablet PO 1,000 mg DAILY GEO Administration Benzonatate 100 mg 05/29/20 15:00 06/03/20 14:38 Benzonatate 100 Mg Cap PO Not Given TID GEO Cholecalciferol 400 units 05/29/20 09:00 06/03/20 09:54 Cholecalciferol (Vitamin D3) 400 Units Tab PO 400 units DAILY GEO Administration Dexamethasone 8 mg 05/29/20 09:00 06/03/20 09:29 Dexamethasone 4 Mg/Ml Vial SLOW IVP 8 mg DAILY GEO Administration Enoxaparin Sodium 60 mg 05/29/20 21:00 06/03/20 09:29 Enoxaparin Sodium 60 Mg/0.6 Ml Syringe SC 60 mg 0900,2100 GEO Administration Famotidine 20 mg 05/29/20 21:00 06/02/20 20:04 Famotidine/Pf 20 Mg/2ml Vial SLOW IVP 20 mg HS GEO Administration Fentanyl Citrate 2,000 mcg/ 100 mls @ 0 mls/hr 05/29/20 10:30 06/01/20 22:35 Sodium Chloride IV 06/28/20 10:30 100 mls INF GEO Administration Protocol Per Protocol Insulin Glargine 8 units/ 0.08 mls @ 0 mls/hr 05/30/20 21:00 06/02/20 20:05 Miscellaneous Medication SC 0.08 mls HS GEO Administration Dexmedetomidine HCl 400 mcg/ 100 mls @ 0 mls/hr 06/02/20 10:45 06/03/20 12:36 Sodium Chloride IVPB 100 mls INF GEO Administration Protocol Per Protocol Insulin Human Lispro 0 units 05/29/20 07:07 06/03/20 10:13 Humalog 300 Units/3 Ml Vial SC 4 unit .MILD SLIDING SCALE PRN Administration Mild Correctional Scale Lorazepam 2 mg 05/29/20 10:30 05/31/20 23:36 Lorazepam 2 Mg/Ml Vial SLOW IVP 06/28/20 10:30 2 mg Q1H PRN Administration Breakthrough agitation Propofol 1,000 mg 05/29/20 10:30 06/02/20 05:48 Propofol 1,000 Mg/100 Ml Vial IV 06/28/20 10:30 1,000 mg INF PRN Administration TO ACHIEVE GOAL RASS Protocol Sodium Chloride 10 ml 05/29/20 09:00 06/03/20 09:30 Flush - Normal Saline 10 Ml Syringe IVF 10 ml Q12HR GEO Administration Sterile Water 10 ml 05/29/20 18:49 05/29/20 20:00 Sterile Water 10 Ml Vial IVP 10 ml Q1H PRN Administration NEEDED FOR RECONSTITUTION Vecuronium [place] 10 mg 05/29/20 18:49 05/30/20 08:37 Vecuronium 10 Mg Vial IVP 10 mg Q1H PRN Administration SPASM Zinc Sulfate 220 mg 05/29/20 09:00 06/03/20 09:30 Zinc Sulfate 220 Mg Cap PO 220 mg DAILY GEO Administration - Exam Neck: no JVD Heart: RRR, no murmur Respiratory - other findings: coarse BS. diffuse fine rales Gastrointestinal: soft, non-tender, normal bowel sounds Extremities: 1+ LE edema Hosp A/P (1) Pneumonia due to COVID-19 virus Code(s): U07.1 - COVID-19; J12.89 - OTHER VIRAL PNEUMONIA Status: Acute (2) Acute kidney injury Code(s): N17.9 - ACUTE KIDNEY FAILURE, UNSPECIFIED Status: Resolved (3) Acute respiratory failure with hypoxemia Code(s): J96.01 - ACUTE RESPIRATORY FAILURE WITH HYPOXIA Status: Acute (4) Anemia Code(s): D64.9 - ANEMIA, UNSPECIFIED Status: Acute Qualifiers: Anemia type: unspecified type Qualified Code(s): D64.9 - Anemia, unspecified (5) Diabetes mellitus Code(s): E11.9 - TYPE 2 DIABETES MELLITUS WITHOUT COMPLICATIONS Status: Chronic Qualifiers: Diabetes mellitus type: type 2 Diabetes mellitus 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
--- NOTE | 2020-06-03 15:10 | PDOC.HOSPP ---
- Subjective Encounter Date: 06/02/20 Encounter Time: 13:00 Subjective: intubated - Objective Vital Signs & Weight: Vital Signs (12 hours) Pulse Resp BP Pulse Ox 06/03/20 14:33 69 145/69 H 06/03/20 14:00 18 06/03/20 12:00 25 H 06/03/20 11:01 70 142/65 H 06/03/20 10:00 18 06/03/20 08:00 22 H 94 L 06/03/20 07:03 67 136/63 06/03/20 06:00 24 H 06/03/20 04:00 22 H Weight Admit Weight 220 lb Weight 223 lb 5.252 oz Most Recent Monitor Data Heart Rate from ECG 70 NIBP 145/69 NIBP BP-Mean 94 Respiration from ECG 18 SpO2 93 I&O: 06/02/20 06/03/20 06/04/20 06:59 06:59 06:59 Intake Total 1085.5 1223.2 120 Output Total 2590 1033 320 Balance -1504.5 190.2 -200 Result Diagrams: 06/03/20 04:10 06/03/20 04:10 Additional Labs: Accuchecks 06/03/20 06/02/20 06/02/20 10:01 22:29 16:13 POC Glucose 270 H 248 H 208 H Hospitalist ROS - Medication Medications: Active Medications Generic Name Dose Route Start Last Admin Trade Name Freq PRN Reason Stop Dose Admin Acetaminophen 650 mg 05/29/20 09:58 05/31/20 03:20 Acetaminophen 650 Mg Suppository [place] 650 mg Q4H PRN Administration Headache/Fever or Pain Acetaminophen 650 mg 05/29/20 09:58 06/01/20 04:00 Acetaminophen 325 Mg Tab PO 650 mg Q4H PRN Administration Fever/Mild Pain Ascorbic Acid 1,000 mg 05/29/20 09:00 06/03/20 09:29 Ascorbic Acid 500 Mg Chewable Tablet PO 1,000 mg DAILY GEO Administration Benzonatate 100 mg 05/29/20 15:00 06/03/20 14:38 Benzonatate 100 Mg Cap PO Not Given TID GEO Cholecalciferol 400 units 05/29/20 09:00 06/03/20 09:54 Cholecalciferol (Vitamin D3) 400 Units Tab PO 400 units DAILY GEO Administration Dexamethasone 8 mg 05/29/20 09:00 06/03/20 09:29 Dexamethasone 4 Mg/Ml Vial SLOW IVP 8 mg DAILY GEO Administration Enoxaparin Sodium 60 mg 05/29/20 21:00 06/03/20 09:29 Enoxaparin Sodium 60 Mg/0.6 Ml Syringe SC 60 mg 0900,2100 GEO Administration Famotidine 20 mg 05/29/20 21:00 06/02/20 20:04 Famotidine/Pf 20 Mg/2ml Vial SLOW IVP 20 mg HS GEO Administration Fentanyl Citrate 2,000 mcg/ 100 mls @ 0 mls/hr 05/29/20 10:30 06/01/20 22:35 Sodium Chloride IV 06/28/20 10:30 100 mls INF GEO Administration Protocol Per Protocol Insulin Glargine 8 units/ 0.08 mls @ 0 mls/hr 05/30/20 21:00 06/02/20 20:05 Miscellaneous Medication SC 0.08 mls HS GEO Administration Dexmedetomidine HCl 400 mcg/ 100 mls @ 0 mls/hr 06/02/20 10:45 06/03/20 12:36 Sodium Chloride IVPB 100 mls INF GEO Administration Protocol Per Protocol Insulin Human Lispro 0 units 05/29/20 07:07 06/03/20 10:13 Humalog 300 Units/3 Ml Vial SC 4 unit .MILD SLIDING SCALE PRN Administration Mild Correctional Scale Lorazepam 2 mg 05/29/20 10:30 05/31/20 23:36 Lorazepam 2 Mg/Ml Vial SLOW IVP 06/28/20 10:30 2 mg Q1H PRN Administration Breakthrough agitation Propofol 1,000 mg 05/29/20 10:30 06/02/20 05:48 Propofol 1,000 Mg/100 Ml Vial IV 06/28/20 10:30 1,000 mg INF PRN Administration TO ACHIEVE GOAL RASS Protocol Sodium Chloride 10 ml 05/29/20 09:00 06/03/20 09:30 Flush - Normal Saline 10 Ml Syringe IVF 10 ml Q12HR GEO Administration Sterile Water 10 ml 05/29/20 18:49 05/29/20 20:00 Sterile Water 10 Ml Vial IVP 10 ml Q1H PRN Administration NEEDED FOR RECONSTITUTION Vecuronium [place] 10 mg 05/29/20 18:49 05/30/20 08:37 Vecuronium 10 Mg Vial IVP 10 mg Q1H PRN Administration SPASM Zinc Sulfate 220 mg 05/29/20 09:00 06/03/20 09:30 Zinc Sulfate 220 Mg Cap PO 220 mg DAILY GEO Administration - Exam Neck: no JVD Heart: RRR, no murmur Respiratory - other findings: coarse BS. diffuse fine rales Gastrointestinal: soft, normal bowel sounds Extremities: 1+ LE edema Hosp A/P (1) Pneumonia due to COVID-19 virus Code(s): U07.1 - COVID-19; J12.89 - OTHER VIRAL PNEUMONIA Status: Acute (2) Acute kidney injury Code(s): N17.9 - ACUTE KIDNEY FAILURE, UNSPECIFIED Status: Resolved (3) Acute respiratory failure with hypoxemia Code(s): J96.01 - ACUTE RESPIRATORY FAILURE WITH HYPOXIA Status: Acute (4) Anemia Code(s): D64.9 - ANEMIA, UNSPECIFIED Status: Acute Qualifiers: Anemia type: unspecified type Qualified Code(s): D64.9 - Anemia, unspecified (5) Diabetes mellitus Code(s): E11.9 - TYPE 2 DIABETES MELLITUS WITHOUT COMPLICATIONS Status: Chronic Qualifiers: Diabetes mellitus type: type 2 Diabetes mellitus gin clerk insulin use: with gin clerk use Diabetes mellitus complication status: without complication Qualified Code(s): E11.9 - Type 2 diabetes mellitus without complications; Z79.4 - retirement (current) use of insulin (6) Hypertension Code(s): I10 - ESSENTIAL (PRIMARY) HYPERTENSION Status: Chronic Qualifiers: Hypertension type: essential hypertension Qualified Code(s): I10 - Essential (primary) hypertension - Plan on vent on iv decadron on accu/ss/LA insulin nutrition support
--- NOTE | 2020-06-03 18:13 | PRG ---
DATE OF SERVICE: 06/03/2020 SUBJECTIVE: . Mckeon continues to slowly improve. Gradually decrease in the citationing, decreased ventilatory support. OBJECTIVE: VITAL SIGNS: Heart rate 66, blood pressure 134/62, respiratory rates in the 20s, oximetry is 98%. LUNGS: Clear. HEART: Regular rhythm. ABDOMEN: Soft. LABORATORY DATA: White count 14.2, hemoglobin 8.4, and platelets 281. Electrolytes are normal. BUN 34, creatinine 0.8. PH 7.42, CO2 of 38, and pO2 of 58 that is on 5 of PEEP, tidal volume of 500, with FiO2 of 45%. Her lung compliance has improved significantly. IMPRESSION: COVID pneumonia, respiratory failure, perhaps a candidate for weaning in the next 24 to 48 hours. Critical care time 30 min. Job ID: [id number] MTDD
[2020-06-03] MEDS: Famotidine/PF 20 mg/2ml Vial SLOW IVP SCH (21:19)
[2020-06-03] MEDS: Insulin Glargine 8 UNITS in Pre-Filled Syringe 1 EACH SC SCH (21:41)
[2020-06-04] MEDS: Acetaminophen 325 MG TAB PO PRN (01:39)
[2020-06-04 05:15] LABS: Anion Gap 13 mmol/L (10-20); BUN (Urea Nitrogen) 40 mg/dL (9.8-20.1); Calc. Creatinine Clearance 108 mL/min (70-130); Carbon Dioxide 25 mmol/L (22-29); Chloride 105 mmol/L (98-107); Glucose 396 mg/dL (70-105); Potassium 3.8 mmol/L (3.5-5.1); Sodium 139 mmol/L (136-145)
[2020-06-04 05:43] LABS: Hemoglobin 8.2 g/dL (12.0-16.0); Mean Corpuscular HGB CONC 32.8 g/dL (32.0-36.0); Mean Corpuscular Hemoglobin 32.2 pg (27.0-31.0); Mean Corpuscular Volume 98.2 fL (78.0-98.0); Mean Platelet Volume 10.3 fL (7.4-10.4); Platelet Count 301 thou/uL (130-400); RBC Distribution Width 12.8 % (11.5-14.5); Red Blood Cell (RBC) Count 2.55 mill/uL (4.20-5.40); White Blood Cell (WBC) Count 11.1 thou/uL (4.8-10.8)
[2020-06-04] MEDS: HumaLOG 300 UNITS/3 ML VIAL SC PRN ×5 (05:44→22:35)
[2020-06-04 06:20] LABS: Band 7 % (5-11); Lymphocytes 4 % (21-51); MDiff Complete? YES; Myelocyte 1 % (0-0); Neutrophil 88 % (42-75)
[2020-06-04] MEDS: Ascorbic Acid 500 mg Chewable Tablet PO SCH (08:15)
[2020-06-04] MEDS: Cholecalciferol (Vitamin D3) 400 UNITS TAB PO SCH (08:15)
[2020-06-04] MEDS: Dexamethasone 4 mg/ml Vial SLOW IVP SCH (08:17)
[2020-06-04] MEDS: Zinc Sulfate 220 MG CAP PO SCH (08:17)
[2020-06-04] MEDS: Enoxaparin Sodium 60 MG/0.6 ML SYRINGE SC SCH ×2 (08:18→21:04)
[2020-06-04 08:29] LABS: Actual Bicarbonate (HCO3a) 24.5 mEq/L (22-28); Base Excess (BEa) 1.3 mEq/L (-2.0 to +3.0); CO2 Tension 32.9 mmHg (35.0-45.0); Calcium, Ionized (arterial) 1.01 mmol/L (1.12-1.30); Carboxyhemoglobin (COHb) 0.9 gm% (0.0-3.0); Hemoglobin (Hb) 8.4 g/dL (12.0-16.0); O2 Tension (PaO2), arterial 60.7 mmHg (80.0-100.0); Potassium - ABG Lab 3.74 mmol/L (3.70-5.30); pH, Arterial 7.49 (7.35-7.45)
[2020-06-04 09:09] LABS: Puncture Site LRA
[2020-06-04 09:10] LABS: ALV-art Gradient 219.025 mmHg (0-20)
[2020-06-04] MEDS: Benzonatate 100 MG CAP PO SCH ×3 (09:55→19:23)
[2020-06-04] MEDS ORDERED: Calcium Chloride 13.6 MEQ in Sodium Chloride 0.9% 100 ML IVPB SCH (10:00)
--- NOTE | 2020-06-04 10:04 | RAD ---
EXAM: Chest one view: HISTORY: Respiratory insufficiency COMPARISON: 06/03/2020 FINDINGS: NG tube and endotracheal tubes in position. Heart size: Within normal limits. Lungs: Worsening bilateral alveolar, groundglass, and interstitial changes evidence for worsening frances ateral Covid pneumonia. IMPRESSION: Evidence for worsening bilateral Covid pneumonia. Continued short-term follow-up.
[2020-06-04] MEDS ORDERED: Dextrose 5% in Water 1,000 ML IV PRN (10:52)
[2020-06-04] MEDS ORDERED: Insulin Regular 300 UNITS/3 ML VIAL SC PRN ×2 (10:52→16:45)
[2020-06-04] MEDS ORDERED: Dextrose 50% Abboject 50 ML SYRINGE SLOW IVP PRN (10:52)
[2020-06-04] MEDS ORDERED: Insulin Glargine 10 UNITS in Pre-Filled Syringe 1 EACH SC SCH (12:00)
[2020-06-04] MEDS ORDERED: Insulin Regular 300 UNITS/3 ML VIAL SC SCH (13:00)
--- NOTE | 2020-06-04 14:08 | PDOC.HOSPP ---
- Subjective Encounter Date: 06/04/20 Encounter Time: 14:11 Subjective: intubated, sedated - Objective Vital Signs & Weight: Vital Signs (12 hours) Temp Pulse Resp BP Pulse Ox 06/04/20 12:00 100.4 F H 23 H 06/04/20 10:56 67 160/69 H 06/04/20 10:00 28 H 06/04/20 08:00 100.6 F H 32 H 95 06/04/20 07:38 76 146/66 H 06/04/20 02:46 74 150/60 H Weight Admit Weight 220 lb Weight 223 lb 12.307 oz Most Recent Monitor Data Heart Rate from ECG 73 NIBP 152/64 NIBP BP-Mean 93 Respiration from ECG 20 SpO2 95 I&O: 06/03/20 06/04/20 06/05/20 06:59 06:59 06:59 Intake Total 1223.2 1595 Output Total 1033 1255 475 Balance 190.2 340 -475 Result Diagrams: 06/04/20 04:10 06/04/20 04:10 Additional Labs: Accuchecks 06/04/20 06/04/20 06/03/20 11:32 08:53 21:24 POC Glucose 352 H 340 H 327 H 06/03/20 16:10 POC Glucose 248 H Radiology Reviewed by me: Yes (cxr- adverse infiltrates, ET tube) Hospitalist ROS - Medication Medications: Active Medications Generic Name Dose Route Start Last Admin Trade Name Freq PRN Reason Stop Dose Admin Acetaminophen 650 mg 05/29/20 09:58 05/31/20 03:20 Acetaminophen 650 Mg Suppository [place] 650 mg Q4H PRN Administration Headache/Fever or Pain Acetaminophen 650 mg 05/29/20 09:58 06/04/20 01:39 Acetaminophen 325 Mg Tab PO 650 mg Q4H PRN Administration Fever/Mild Pain Ascorbic Acid 1,000 mg 05/29/20 09:00 06/04/20 08:15 Ascorbic Acid 500 Mg Chewable Tablet PO 1,000 mg DAILY GEO Administration Benzonatate 100 mg 05/29/20 15:00 06/04/20 09:55 Benzonatate 100 Mg Cap PO Not Given TID GEO Cholecalciferol 400 units 05/29/20 09:00 06/04/20 08:15 Cholecalciferol (Vitamin D3) 400 Units Tab PO 400 units DAILY GEO Administration Dexamethasone 8 mg 05/29/20 09:00 06/04/20 08:17 Dexamethasone 4 Mg/Ml Vial SLOW IVP 8 mg DAILY GEO Administration Enoxaparin Sodium 60 mg 05/29/20 21:00 06/04/20 08:18 Enoxaparin Sodium 60 Mg/0.6 Ml Syringe SC 60 mg 0900,2100 GEO Administration Famotidine 20 mg 05/29/20 21:00 06/03/20 21:19 Famotidine/Pf 20 Mg/2ml Vial SLOW IVP 20 mg HS GEO Administration Fentanyl Citrate 2,000 mcg/ 100 mls @ 0 mls/hr 05/29/20 10:30 06/01/20 22:35 Sodium Chloride IV 06/28/20 10:30 100 mls INF GEO Administration Protocol Per Protocol Dexmedetomidine HCl 400 mcg/ 100 mls @ 0 mls/hr 06/02/20 10:45 06/04/20 01:39 Sodium Chloride IVPB 100 mls INF GEO Administration Protocol Per Protocol Insulin Human Lispro 0 units 05/29/20 07:07 06/04/20 11:42 Humalog 300 Units/3 Ml Vial SC 6 unit .MILD SLIDING SCALE PRN Administration Mild Correctional Scale Lorazepam 2 mg 05/29/20 10:30 05/31/20 23:36 Lorazepam 2 Mg/Ml Vial SLOW IVP 06/28/20 10:30 2 mg Q1H PRN Administration Breakthrough agitation Propofol 1,000 mg 05/29/20 10:30 06/02/20 05:48 Propofol 1,000 Mg/100 Ml Vial IV 06/28/20 10:30 1,000 mg INF PRN Administration TO ACHIEVE GOAL RASS Protocol Sodium Chloride 10 ml 05/29/20 09:00 06/04/20 08:19 Flush - Normal Saline 10 Ml Syringe IVF 10 ml Q12HR GEO Administration Sterile Water 10 ml 05/29/20 18:49 05/29/20 20:00 Sterile Water 10 Ml Vial IVP 10 ml Q1H PRN Administration NEEDED FOR RECONSTITUTION Vecuronium [place] 10 mg 05/29/20 18:49 05/30/20 08:37 Vecuronium 10 Mg Vial IVP 10 mg Q1H PRN Administration SPASM Zinc Sulfate 220 mg 05/29/20 09:00 06/04/20 08:17 Zinc Sulfate 220 Mg Cap PO 220 mg DAILY GEO Administration - Exam Neck: no JVD Heart: RRR, no murmur Respiratory - other findings: coarse BS, Gastrointestinal: soft, non-tender, normal bowel sounds Extremities: 1+ LE edema Hosp A/P (1) Pneumonia due to COVID-19 virus Code(s): U07.1 - COVID-19; J12.89 - OTHER VIRAL PNEUMONIA Status: Acute (2) Acute kidney injury Code(s): N17.9 - ACUTE KIDNEY FAILURE, UNSPECIFIED Status: Resolved (3) Acute respiratory failure with hypoxemia Code(s): J96.01 - ACUTE RESPIRATORY FAILURE WITH HYPOXIA Status: Acute (4) Anemia Code(s): D64.9 - ANEMIA, UNSPECIFIED Status: Acute Qualifiers: Anemia type: unspecified type Qualified Code(s): D64.9 - Anemia, unspecified (5) Diabetes mellitus Code(s): E11.9 - TYPE 2 DIABETES MELLITUS WITHOUT COMPLICATIONS Status: Chronic Qualifiers: Diabetes mellitus type: type 2 Diabetes mellitus [facility] insulin use: with exterminator helper use Diabetes mellitus complication status: without complication Qualified Code(s): E11.9 - Type 2 diabetes mellitus without complications; 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 covid pna 2. 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 DM- poor control- escalating SS/lantus 4. anemia-FOBT, daily CBC, transfuse prn, PPI
[2020-06-04] MEDS ORDERED: Pantoprazole 40 MG VIAL IVP SCH (14:30)
[2020-06-04] MEDS: Cefepime 1 GM in Sodium Chloride 0.9% 100 ML IVPB SCH (21:03)
[2020-06-04] MEDS: Insulin Glargine 10 UNITS in Pre-Filled Syringe 1 EACH SC SCH (21:05)
[2020-06-04] MEDS: Famotidine/PF 20 mg/2ml Vial SLOW IVP SCH (21:05)
[2020-06-05] MEDS: HumaLOG 300 UNITS/3 ML VIAL SC PRN ×5 (04:40→21:00)
[2020-06-05 05:42] LABS: Anion Gap 15 mmol/L (10-20); BUN (Urea Nitrogen) 44 mg/dL (9.8-20.1); Calc. Creatinine Clearance 110 mL/min (70-130); Calcium 7.7 mg/dL (7.8-10.44); Carbon Dioxide 24 mmol/L (22-29); Chloride 107 mmol/L (98-107); Glucose 346 mg/dL (70-105); Hemoglobin 7.3 g/dL (12.0-16.0); Mean Corpuscular HGB CONC 31.7 g/dL (32.0-36.0); Mean Corpuscular Volume 97.7 fL (78.0-98.0); Mean Platelet Volume 9.9 fL (7.4-10.4); Platelet Count 346 thou/uL (130-400); Potassium 3.8 mmol/L (3.5-5.1); RBC Distribution Width 12.9 % (11.5-14.5); Red Blood Cell (RBC) Count 2.35 mill/uL (4.20-5.40); Sodium 142 mmol/L (136-145); White Blood Cell (WBC) Count 11.6 thou/uL (4.8-10.8)
[2020-06-05 05:43] LABS: Band 12 % (5-11); Lymphocytes 5 % (21-51); MDiff Complete? YES; Monocytes 1 % (0-10); Myelocyte 2 % (0-0); Neutrophil 80 % (42-75)
--- NOTE | 2020-06-05 06:18 | PRG ---
DATE OF SERVICE: 06/04/2020 SUBJECTIVE: A 55-year-old female, intubated in the vent. OBJECTIVE: VITAL SIGNS: Temperature is 100.6, respirations 28, blood pressure 160/69, saturations are adequate at a rate of 4. CHEST: Bilateral rhonchi and crackles. CARDIAC: Normal S1, S2. ABDOMEN: No masses. LABORATORY DATA: White count 40815, H and H 8.2 and 25, platelet count 301, pO2 of 60, pCO2 of 32.9, pH 7.49, rate of 4. Lytes are normal. X-ray still shows bilateral infiltrates. IMPRESSION: Respiratory failure, kemp positive pneumonia and febrile illness. Cultures negative. Pseudomonas from the ear years ago. PLAN: I am going to start empiric antibiotics. Discontinue sedation, trial of CPAP to see whether she is weanable, continue steroids. One-half hour of critical care time. Job ID: [id number]
[2020-06-05 08:16] LABS: Actual Bicarbonate (HCO3a) 23.5 mEq/L (22-28); Base Excess (BEa) 0.5 mEq/L (-2.0 to +3.0); CO2 Tension 30.9 mmHg (35.0-45.0); Calcium, Ionized (arterial) 1.11 mmol/L (1.12-1.30); Carboxyhemoglobin (COHb) 0.5 gm% (0.0-3.0); Hemoglobin (Hb) 7.9 g/dL (12.0-16.0); O2 Tension (PaO2), arterial 77.7 mmHg (80.0-100.0); Potassium - ABG Lab 3.63 mmol/L (3.70-5.30)
[2020-06-05 08:18] LABS: ALV-art Gradient 204.525 mmHg (0-20); Puncture Site LRA
[2020-06-05] MEDS: Zinc Sulfate 220 MG CAP PO SCH (08:20)
[2020-06-05] MEDS: Cefepime 1 GM in Sodium Chloride 0.9% 100 ML IVPB SCH ×2 (08:20→19:46)
[2020-06-05] MEDS: Dexamethasone 4 mg/ml Vial SLOW IVP SCH (08:20)
[2020-06-05] MEDS: Ascorbic Acid 500 mg Chewable Tablet PO SCH (08:20)
[2020-06-05] MEDS: Benzonatate 100 MG CAP PO SCH ×3 (08:21→19:27)
[2020-06-05] MEDS: Enoxaparin Sodium 60 MG/0.6 ML SYRINGE SC SCH ×2 (08:21→19:47)
[2020-06-05] MEDS: Pantoprazole 40 MG VIAL IVP SCH (08:21)
--- NOTE | 2020-06-05 08:21 | RAD ---
Chest one view HISTORY: Dyspnea. Follow-up. COMPARISON: 06/04/2020. FINDINGS: Cardiac silhouette is magnified by projection. Left cardiac margin now more obscured by inc reasing infiltrate within the lingula of the left upper lobe. Other ill-defined patchy areas of dense infiltrate throughout each lung are unchanged. Mediastinum is midline. Lines and tubes unchanged in position. No evidence of pneumothorax. IMPRESSION : Prominent bilateral infiltrates. Very little changed. Slight worsening of left upper lobe infiltrate.
[2020-06-05] MEDS: Insulin Glargine 10 UNITS in Pre-Filled Syringe 1 EACH SC SCH (09:34)
[2020-06-05] MEDS: Cholecalciferol (Vitamin D3) 400 UNITS TAB PO SCH (09:35)
--- NOTE | 2020-06-05 12:46 | PRG ---
DATE OF SERVICE: 06/05/2020 SUBJECTIVE: [facility] remains intubated in the vent, minimal sedation. OBJECTIVE: VITAL SIGNS: Temperature is 99.7, pulse 83, blood pressure 172/71, sats on CPAP, good, 95%. I's and O's have been good. CHEST: No wheezing, no crackles. CARDIAC: Normal S1, S2. No masses. LABORATORY DATA: White count 11,000, H and H 7 and 21, platelet count 346. Her pO2 is 77, pCO2 is 30, pH 7.51 on 45%, PEEP of 5, CPAP. X-ray shows bilateral infiltrates. ASSESSMENT: Respiratory failure, kemp positive pneumonia, slowly improving, severe deconditioning. PLAN: Continue CPAP. Consider extubation tomorrow if she remains stable. One-half hour of critical time. Job ID: [id number]
--- NOTE | 2020-06-05 19:36 | PDOC.HOSPP ---
- Subjective Encounter Date: 06/05/20 non-verbal - Objective Vital Signs & Weight: Vital Signs (12 hours) Pulse Resp BP Pulse Ox 06/05/20 19:16 58 L 06/05/20 18:00 26 H 06/05/20 16:00 22 H 06/05/20 14:52 58 L 151/70 H 06/05/20 14:00 21 H 06/05/20 12:00 28 H 06/05/20 10:35 83 172/71 H 06/05/20 10:00 29 H 06/05/20 08:00 26 H 94 L Weight Admit Weight 220 lb Weight 220 lb 14.451 oz Most Recent Monitor Data Heart Rate from ECG 77 NIBP 149/72 NIBP BP-Mean 87 Respiration from ECG 26 SpO2 94 I&O: 06/04/20 06/05/20 06/06/20 06:59 06:59 06:59 Intake Total 1595 1903.9 785.2 Output Total 1255 1548 625 Balance 340 355.9 160.2 Result Diagrams: 06/05/20 04:05 06/05/20 04:05 Additional Labs: Accuchecks 06/05/20 06/05/20 06/05/20 16:56 12:05 09:15 POC Glucose 278 H 294 H 315 H 06/05/20 06/04/20 04:26 22:36 POC Glucose 293 H 355 H Hospitalist ROS - Medication Medications: Active Medications Generic Name Dose Route Start Last Admin Trade Name Freq PRN Reason Stop Dose Admin Acetaminophen 650 mg 05/29/20 09:58 05/31/20 03:20 Acetaminophen 650 Mg Suppository [place] 650 mg Q4H PRN Administration Headache/Fever or Pain Acetaminophen 650 mg 05/29/20 09:58 06/04/20 01:39 Acetaminophen 325 Mg Tab PO 650 mg Q4H PRN Administration Fever/Mild Pain Ascorbic Acid 1,000 mg 05/29/20 09:00 06/05/20 08:20 Ascorbic Acid 500 Mg Chewable Tablet PO 1,000 mg DAILY GEO Administration Benzonatate 100 mg 05/29/20 15:00 06/05/20 19:27 Benzonatate 100 Mg Cap PO Not Given TID GEO Cholecalciferol 400 units 05/29/20 09:00 06/05/20 09:35 Cholecalciferol (Vitamin D3) 400 Units Tab PO 400 units DAILY GEO Administration Dexamethasone 8 mg 05/29/20 09:00 06/05/20 08:20 Dexamethasone 4 Mg/Ml Vial SLOW IVP 8 mg DAILY GEO Administration Enoxaparin Sodium 60 mg 05/29/20 21:00 06/05/20 08:21 Enoxaparin Sodium 60 Mg/0.6 Ml Syringe SC 60 mg 0900,2100 GEO Administration Famotidine 20 mg 05/29/20 21:00 06/04/20 21:05 Famotidine/Pf 20 Mg/2ml Vial SLOW IVP 20 mg HS GEO Administration Fentanyl Citrate 2,000 mcg/ 100 mls @ 0 mls/hr 05/29/20 10:30 06/01/20 22:35 Sodium Chloride IV 06/28/20 10:30 100 mls INF GEO Administration Protocol Per Protocol Dexmedetomidine HCl 400 mcg/ 100 mls @ 0 mls/hr 06/02/20 10:45 06/05/20 15:51 Sodium Chloride IVPB 100 mls INF GEO Administration Protocol Per Protocol Cefepime HCl 1 gm/ Sodium 100 mls @ 200 mls/hr 06/04/20 21:00 06/05/20 08:20 Chloride IVPB 100 mls Q12HR GEO Administration Insulin Glargine 10 units/ 0.1 mls @ 0 mls/hr 06/04/20 21:00 06/05/20 09:34 Miscellaneous Medication SC 0.1 mls BID GEO Administration Insulin Human Lispro 0 units 06/04/20 17:30 06/05/20 17:57 Humalog 300 Units/3 Ml Vial SC 9 unit .AGGRESSIVE SLIDING PRN Administration AGGRESSIVE SLIDING SCALE Protocol Lorazepam 2 mg 05/29/20 10:30 05/31/20 23:36 Lorazepam 2 Mg/Ml Vial SLOW IVP 06/28/20 10:30 2 mg Q1H PRN Administration Breakthrough agitation Pantoprazole Sodium 40 mg 06/05/20 09:00 06/05/20 08:21 Pantoprazole 40 Mg Vial IVP 40 mg DAILY GEO Administration Propofol 1,000 mg 05/29/20 10:30 06/02/20 05:48 Propofol 1,000 Mg/100 Ml Vial IV 06/28/20 10:30 1,000 mg INF PRN Administration TO ACHIEVE GOAL RASS Protocol Sodium Chloride 10 ml 05/29/20 09:00 06/05/20 08:22 Flush - Normal Saline 10 Ml Syringe IVF 10 ml Q12HR GEO Administration Sterile Water 10 ml 05/29/20 18:49 05/29/20 20:00 Sterile Water 10 Ml Vial IVP 10 ml Q1H PRN Administration NEEDED FOR RECONSTITUTION Vecuronium [place] 10 mg 05/29/20 18:49 05/30/20 08:37 Vecuronium 10 Mg Vial IVP 10 mg Q1H PRN Administration SPASM Zinc Sulfate 220 mg 05/29/20 09:00 06/05/20 08:20 Zinc Sulfate 220 Mg Cap PO 220 mg DAILY GEO Administration - Exam General Appearance: NAD General - other findings: Intubated and sedated Hosp A/P (1) Acute respiratory failure with hypoxemia Code(s): J96.01 - ACUTE RESPIRATORY FAILURE WITH HYPOXIA Status: Acute (2) Pneumonia due to COVID-19 virus Code(s): U07.1 - COVID-19; J12.89 - OTHER VIRAL PNEUMONIA Status: Acute (3) Diabetes mellitus Code(s): E11.9 - TYPE 2 DIABETES MELLITUS WITHOUT COMPLICATIONS Status: Chronic Qualifiers: Diabetes mellitus type: type 2 Diabetes mellitus rat exterminator insulin use: with fdc use Diabetes mellitus complication status: without complication Qualified Code(s): E11.9 - Type 2 diabetes mellitus without complications; Z7 9.4 - superintendent 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 Pulmonary following. Still intubated however the plan is to consider extubation tomorrow. COVID-19 pneumonia: Bilateral infiltrates. Respiratory failure. Continue dexamethasone, escalated dose of Lovenox, vitamin supplementation. Anemia: Etiology is unclear. Seems to be a bit worse today. We will repeat in the morning and if progressively declining will need to consider GI evaluation. Transfuse as needed. Acute kidney injury: Appears to be significantly improved. Do not have baseline numbers for her but I suspect that is where she is now. Diabetes mellitus: Blood sugars remaining significantly elevated. Likely due to the Decadron. Increase Lantus to 15 units subcu twice daily. Continue aggressive sliding scale.
[2020-06-05] MEDS: Famotidine/PF 20 mg/2ml Vial SLOW IVP SCH (19:47)
[2020-06-05] MEDS: Insulin Glargine 15 UNITS in Pre-Filled Syringe SC SCH (19:58)
[2020-06-05] MEDS: fentaNYL Citrate/PF 2,000 MCG in Sodium Chloride 0.9% 60 ML IV SCH (22:44)
[2020-06-06] MEDS: HumaLOG 300 UNITS/3 ML VIAL SC PRN ×4 (01:55→17:08)
[2020-06-06 05:08] LABS: Anion Gap 14 mmol/L (10-20); BUN (Urea Nitrogen) 53 mg/dL (9.8-20.1); Calc. Creatinine Clearance 110 mL/min (70-130); Calcium 7.9 mg/dL (7.8-10.44); Carbon Dioxide 25 mmol/L (22-29); Chloride 109 mmol/L (98-107); Glucose 237 mg/dL (70-105); Sodium 144 mmol/L (136-145)
[2020-06-06 05:13] LABS: Band 4 % (5-11); Hemoglobin 7.7 g/dL (12.0-16.0); Lymphocytes 10 % (21-51); MDiff Complete? YES; Mean Corpuscular HGB CONC 31.1 g/dL (32.0-36.0); Mean Corpuscular Hemoglobin 30.3 pg (27.0-31.0); Mean Corpuscular Volume 97.4 fL (78.0-98.0); Mean Platelet Volume 9.9 fL (7.4-10.4); Metamyelocyte 1 % (0-0); Monocytes 1 % (0-10); Neutrophil 84 % (42-75); Platelet Count 401 thou/uL (130-400); Red Blood Cell (RBC) Count 2.54 mill/uL (4.20-5.40); White Blood Cell (WBC) Count 12.9 thou/uL (4.8-10.8)
[2020-06-06] MEDS: Enoxaparin Sodium 60 MG/0.6 ML SYRINGE SC SCH ×2 (08:26→20:04)
[2020-06-06] MEDS: Cefepime 1 GM in Sodium Chloride 0.9% 100 ML IVPB SCH ×2 (08:26→20:04)
[2020-06-06] MEDS: Pantoprazole 40 MG VIAL IVP SCH (08:26)
[2020-06-06] MEDS: Insulin Glargine 15 UNITS in Pre-Filled Syringe SC SCH ×3 (08:27→21:58)
[2020-06-06] MEDS: Dexamethasone 4 mg/ml Vial SLOW IVP SCH (08:27)
[2020-06-06] MEDS: Ascorbic Acid 500 mg Chewable Tablet PO SCH (08:27)
[2020-06-06] MEDS: Zinc Sulfate 220 MG CAP PO SCH (08:27)
[2020-06-06] MEDS: Cholecalciferol (Vitamin D3) 400 UNITS TAB PO SCH (08:28)
[2020-06-06] MEDS: Benzonatate 100 MG CAP PO SCH ×3 (08:28→19:20)
[2020-06-06 08:56] LABS: Actual Bicarbonate (HCO3a) 24.5 mEq/L (22-28); Base Excess (BEa) 1.2 mEq/L (-2.0 to +3.0); CO2 Tension 31.3 mmHg (35.0-45.0); Carboxyhemoglobin (COHb) 0.9 gm% (0.0-3.0); O2 Tension (PaO2), arterial 67.1 mmHg (80.0-100.0); Potassium - ABG Lab 3.57 mmol/L (3.70-5.30); pH, Arterial 7.51 (7.35-7.45)
[2020-06-06 08:58] LABS: Hemoglobin (Hb) 4.9 g/dL (12.0-16.0); Puncture Site RRA
[2020-06-06 08:59] LABS: ALV-art Gradient 214.625 mmHg (0-20)
[2020-06-06] MEDS ORDERED: Ergocalciferol 1.25 MG(50,000 UNITS) CAP PO SCH (09:00)
--- NOTE | 2020-06-06 09:30 | RAD ---
Chest one view HISTORY: Pneumonia. Dyspnea. Follow-up. COMPARISON: 06/24/2020. FINDINGS: Cardiac silhouette is magnified by projection. Mediastinum is midline. Lines and tubes unch anged in position. Patchy ill-defined scattered areas of dense parenchymal infiltrate throughout each lung are similar i n appearance to the prior study. No evidence of pneumothorax. IMPRESSION : Multifocal infiltrate and other findings are stable.
--- NOTE | 2020-06-06 11:14 | PRG ---
DATE OF SERVICE: 06/06/2020 OBJECTIVE: VITAL SIGNS: A 55-year-old female, on CPAP 45% FiO2, saturations are in the 90s, 90%-93%, respirations 23, blood pressure 170/71, temperature 98. CHEST: No wheezing, no crackles. CARDIAC: Normal S1 and S2. No gallops. ABDOMEN: No masses. LABORATORY DATA: White count 12,000, hemoglobin and hematocrit are 7 and 24, platelet count is . PO2 is 67, pCO2 is 31, pH 7.51. Lytes are normal. X-ray shows bilateral infiltrates. ASSESSMENT AND PLAN: Respiratory failure, kemp positive pneumonia. She is on Decadron, Lovenox, supportive care. The question is whether we should consider extubating her tomorrow and starting on high-flow. She seems pretty appropriate. We will make a decision in the morning. One-half hour of critical care time. Job ID: [id number]
[2020-06-06] MEDS: Famotidine/PF 20 mg/2ml Vial SLOW IVP SCH (20:04)
[2020-06-07 01:12] LABS: Actual Bicarbonate (HCO3a) 25.8 mEq/L (22-28); CO2 Tension 41.6 mmHg (35.0-45.0); Calcium, Ionized (arterial) 1.13 mmol/L (1.12-1.30); Carboxyhemoglobin (COHb) 0.3 gm% (0.0-3.0); O2 Tension (PaO2), arterial 63.7 mmHg (80.0-100.0); pH, Arterial 7.41 (7.35-7.45)
[2020-06-07] MEDS: Acetaminophen 650 MG Suppository PR PRN (02:13)
[2020-06-07 04:33] LABS: Anion Gap 15 mmol/L (10-20); BUN (Urea Nitrogen) 43 mg/dL (9.8-20.1); Calc. Creatinine Clearance 133 mL/min (70-130); Calcium 7.5 mg/dL (7.8-10.44); Carbon Dioxide 21 mmol/L (22-29); Chloride 113 mmol/L (98-107); Glucose 124 mg/dL (70-105); Potassium 4.4 mmol/L (3.5-5.1); Sodium 145 mmol/L (136-145)
[2020-06-07 04:35] LABS: Band 8 % (5-11); Hemoglobin 7.4 g/dL (12.0-16.0); Lymphocytes 6 % (21-51); MDiff Complete? YES; Mean Corpuscular HGB CONC 30.8 g/dL (32.0-36.0); Mean Corpuscular Hemoglobin 30.1 pg (27.0-31.0); Mean Corpuscular Volume 97.7 fL (78.0-98.0); Mean Platelet Volume 9.8 fL (7.4-10.4); Monocytes 1 % (0-10); Neutrophil 85 % (42-75); Platelet Count 445 thou/uL (130-400); Red Blood Cell (RBC) Count 2.46 mill/uL (4.20-5.40); White Blood Cell (WBC) Count 12.6 thou/uL (4.8-10.8)
[2020-06-07] MEDS: Cefepime 1 GM in Sodium Chloride 0.9% 100 ML IVPB SCH ×2 (09:20→20:36)
[2020-06-07] MEDS: Enoxaparin Sodium 60 MG/0.6 ML SYRINGE SC SCH ×2 (09:21→20:36)
[2020-06-07] MEDS: Pantoprazole 40 MG VIAL IVP SCH (09:21)
[2020-06-07] MEDS: Dexamethasone 4 mg/ml Vial SLOW IVP SCH (09:22)
[2020-06-07] MEDS: Benzonatate 100 MG CAP PO SCH ×4 (09:23→21:02)
[2020-06-07] MEDS: Insulin Glargine 15 UNITS in Pre-Filled Syringe SC SCH ×2 (09:23→21:01)
[2020-06-07] MEDS: Ascorbic Acid 500 mg Chewable Tablet PO SCH (09:58)
[2020-06-07] MEDS: Ergocalciferol 1.25 MG(50,000 UNITS) CAP PO SCH (09:59)
[2020-06-07] MEDS: Cholecalciferol (Vitamin D3) 400 UNITS TAB PO SCH (09:59)
[2020-06-07] MEDS: Zinc Sulfate 220 MG CAP PO SCH (09:59)
--- NOTE | 2020-06-07 17:16 | PDOC.HOSPP ---
- Subjective Encounter Date: 06/07/20 Subjective: Patient is somnolent. Events of overnight noted. Patient had some increased agitation which appears to be related to some mild respiratory distress. Improved with adjustments in her oxygen delivery. - Objective Vital Signs & Weight: Vital Signs (12 hours) Temp Pulse Pulse Ox 06/07/20 16:10 98.2 F 06/07/20 15:30 100 06/07/20 12:52 53 L 06/07/20 09:41 52 L 06/07/20 08:00 100 Weight Admit Weight 220 lb Weight 216 lb 0.848 oz Most Recent Monitor Data Heart Rate from ECG 71 NIBP 160/77 NIBP BP-Mean 104 Respiration from ECG 33 SpO2 100 I&O: 06/06/20 06/07/20 06/08/20 06:59 06:59 06:59 Intake Total 2050.1 1365 250 Output Total 1230 1155 535 Balance 820.1 210 -285 Result Diagrams: 06/07/20 03:44 06/07/20 03:44 Additional Labs: Accuchecks 06/07/20 06/07/20 06/07/20 09:49 03:44 00:31 POC Glucose 97 120 H 115 H 06/06/20 06/06/20 20:31 00:53 POC Glucose 116 H 254 H Hospitalist ROS - Medication Medications: Active Medications Generic Name Dose Route Start Last Admin Trade Name Freq PRN Reason Stop Dose Admin Acetaminophen 650 mg 05/29/20 09:58 06/07/20 02:13 Acetaminophen 650 Mg Suppository [place] 650 mg Q4H PRN Administration Headache/Fever or Pain Acetaminophen 650 mg 05/29/20 09:58 06/04/20 01:39 Acetaminophen 325 Mg Tab PO 650 mg Q4H PRN Administration Fever/Mild Pain Ascorbic Acid 1,000 mg 05/29/20 09:00 06/07/20 09:58 Ascorbic Acid 500 Mg Chewable Tablet PO Not Given DAILY GEO Benzonatate 100 mg 05/29/20 15:00 06/07/20 16:30 Benzonatate 100 Mg Cap PO Not Given TID GEO Cholecalciferol 400 units 05/29/20 09:00 06/07/20 09:59 Cholecalciferol (Vitamin D3) 400 Units Tab PO Not Given DAILY GEO Dexamethasone 8 mg 05/29/20 09:00 06/07/20 09:22 Dexamethasone 4 Mg/Ml Vial SLOW IVP 8 mg DAILY GEO Administration Enoxaparin Sodium 60 mg 05/29/20 21:00 06/07/20 09:21 Enoxaparin Sodium 60 Mg/0.6 Ml Syringe SC 60 mg 0900,2100 GEO Administration Ergocalciferol 1.25 mg 06/07/20 09:00 06/07/20 09:59 Ergocalciferol 1.25 Mg(50,000 Units) Cap PO Not Given Q7DAYS GEO Dexmedetomidine HCl 400 mcg/ 100 mls @ 0 mls/hr 06/02/20 10:45 06/07/20 13:06 Sodium Chloride IVPB 100 mls INF GEO Administration Protocol Per Protocol Cefepime HCl 1 gm/ Sodium 100 mls @ 200 mls/hr 06/04/20 21:00 06/07/20 09:20 Chloride IVPB 100 mls Q12HR GEO Administration Insulin Glargine 15 units/ 0.15 mls @ 0 mls/hr 06/05/20 21:00 06/07/20 09:23 Miscellaneous Medication SC 0.15 mls BID GEO Administration Insulin Human Lispro 0 units 06/04/20 17:30 06/06/20 17:08 Humalog 300 Units/3 Ml Vial SC 3 unit .AGGRESSIVE SLIDING PRN Administration AGGRESSIVE SLIDING SCALE Protocol Sodium Chloride 10 ml 05/29/20 09:00 06/07/20 09:59 Flush - Normal Saline 10 Ml Syringe IVF Not Given Q12HR GEO Sterile Water 10 ml 05/29/20 18:49 05/29/20 20:00 Sterile Water 10 Ml Vial IVP 10 ml Q1H PRN Administration NEEDED FOR RECONSTITUTION Vecuronium [place] 10 mg 05/29/20 18:49 05/30/20 08:37 Vecuronium 10 Mg Vial IVP 10 mg Q1H PRN Administration SPASM Zinc Sulfate 220 mg 05/29/20 09:00 06/07/20 09:59 Zinc Sulfate 220 Mg Cap PO Not Given DAILY GEO - Exam General Appearance: NAD General - other findings: Somnolent. Heart: RRR, no murmur, no gallops, no rubs, normal peripheral pulses Respiratory: no wheezes, no ronchi, rales (Scattered bilateral) Gastrointestinal: soft, non-distended, normal bowel sounds, no palpable masses Extremities - other findings: Fairly diffuse peripheral edema Hosp A/P (1) Acute respiratory failure with hypoxemia Code(s): J96.01 - ACUTE RESPIRATORY FAILURE WITH HYPOXIA Status: Acute (2) Pneumonia due to COVID-19 virus Code(s): U07.1 - COVID-19; J12.89 - OTHER VIRAL PNEUMONIA Status: Acute (3) Diabetes mellitus Code(s): E11.9 - TYPE 2 DIABETES MELLITUS WITHOUT COMPLICATIONS Status: Chronic Qualifiers: Diabetes mellitus type: type 2 Diabetes mellitus long-term insulin use: with long line teamster use Diabetes mellitus complication status: without complication Qualified Code(s): E11.9 - Type 2 diabetes mellitus without complications; Z79.4 - care home (current) use of insulin (4) Hypertension Code(s): I10 - ESSENTIAL (PRIMARY) HYPERTENSION Status: Chronic Qualifiers: Hypertension type: essential hypertension Qualified Code(s): I10 - Essential (primary) hypertension (5) Hypokalemia Code(s): E87.6 - HYPOKALEMIA Status: Acute (6) Anemia Code(s): D64.9 - ANEMIA, UNSPECIFIED Status: Acute Qualifiers: Anemia type: unspecified type Qualified Code(s): D64.9 - Anemia, unspeci fied (7) Acute kidney injury Code(s): N17.9 - ACUTE KIDNEY FAILURE, UNSPECIFIED Status: Resolved - Plan Acute hypoxic respiratory failure: Secondary to COVID-19 pneumonia. Pulmonary following. Extubated on 06/06/2020. Continues to require a fair amount of supplemental oxygen support. COVID-19 pneumonia: Bilateral infiltrates. Respiratory failure. Continue dexamethasone, escalated dose of Lovenox, vitamin supplementation. Anemia: Etiology is unclear. Remaining relatively stable. Continue to follow daily and transfuse as needed. Acute kidney injury: Presented with an initial GFR of 22. Subsequent hydration has increased up to 80. Diabetes mellitus: Blood sugars remaining significantly elevated. Likely due to the Decadron. Increase Lantus to 15 units subcu twice daily on 06/05/2020. Significant improvement. Continue aggressive sliding scale.
--- NOTE | 2020-06-07 19:14 | PRG ---
DATE OF SERVICE: 06/07/2020 SUBJECTIVE: [facility] was successfully extubated over the weekend. She is on high-flow. OBJECTIVE: VITAL SIGNS: This afternoon, blood pressure 160/77, heart rate 70, respiratory rates in the 20s. GENERAL: She appears reasonably comfortable. LUNGS: Unchanged. HEART: Unchanged. ABDOMEN: Unchanged. IMPRESSION AND PLAN: Coronavirus disease pneumonia, status post mechanical ventilation. Her hemoglobin today was 7.4. She may benefit from a 2 unit transfusion as I am sure she is not rapidly manufacturing red cells with this acute illness. We will continue to follow. She is stable to move to intermediate care in my opinion. Job ID: [id number] MTDD
[2020-06-07] MEDS: Famotidine/PF 20 mg/2ml Vial SLOW IVP SCH (20:35)
[2020-06-08 04:22] LABS: Anion Gap 16 mmol/L (10-20); BUN (Urea Nitrogen) 43 mg/dL (9.8-20.1); Calc. Creatinine Clearance 129 mL/min (70-130); Calcium 7.6 mg/dL (7.8-10.44); Carbon Dioxide 20 mmol/L (22-29); Chloride 110 mmol/L (98-107); Glucose 166 mg/dL (70-105); Potassium 4.1 mmol/L (3.5-5.1); Sodium 142 mmol/L (136-145)
[2020-06-08 04:51] LABS: Band 4 % (5-11); Hemoglobin 7.2 g/dL (12.0-16.0); Lymphocytes 8 % (21-51); MDiff Complete? YES; Mean Corpuscular HGB CONC 32.7 g/dL (32.0-36.0); Mean Platelet Volume 10.3 fL (7.4-10.4); Metamyelocyte 1 % (0-0); Monocytes 1 % (0-10); Myelocyte 1 % (0-0); Neutrophil 85 % (42-75); Platelet Count 443 thou/uL (130-400); RBC Distribution Width 13.3 % (11.5-14.5); Red Blood Cell (RBC) Count 2.25 mill/uL (4.20-5.40); White Blood Cell (WBC) Count 11.8 thou/uL (4.8-10.8)
[2020-06-08] MEDS: Cefepime 1 GM in Sodium Chloride 0.9% 100 ML IVPB SCH ×2 (08:12→21:20)
[2020-06-08] MEDS: Enoxaparin Sodium 60 MG/0.6 ML SYRINGE SC SCH ×2 (08:13→21:21)
[2020-06-08] MEDS: Famotidine/PF 20 mg/2ml Vial SLOW IVP SCH ×2 (08:13→21:21)
[2020-06-08] MEDS: Dexamethasone 4 mg/ml Vial SLOW IVP SCH (08:13)
[2020-06-08] MEDS: Insulin Glargine 15 UNITS in Pre-Filled Syringe SC SCH ×2 (10:13→21:21)
[2020-06-08] MEDS: Ascorbic Acid 500 mg Chewable Tablet PO SCH (10:13)
[2020-06-08] MEDS: Cholecalciferol (Vitamin D3) 400 UNITS TAB PO SCH (10:14)
[2020-06-08] MEDS: Zinc Sulfate 220 MG CAP PO SCH (10:14)
[2020-06-08] MEDS: Benzonatate 100 MG CAP PO SCH ×3 (10:14→21:20)
[2020-06-08] MEDS: HumaLOG 300 UNITS/3 ML VIAL SC PRN (16:54)
--- NOTE | 2020-06-08 18:47 | PDOC.HOSPP ---
- Subjective Encounter Date: 06/08/20 Subjective: Patient reports she does not feel great but she is feeling somewhat better. She wants to take some ice chips although speech has recommended thickened liquids. She understands the risk. - Objective Vital Signs & Weight: Vital Signs (12 hours) Temp Pulse Ox 06/08/20 15:40 97.2 F L 06/08/20 13:01 99 06/08/20 11:50 97.1 F L 06/08/20 07:15 97.6 F Weight Admit Weight 220 lb Weight 233 lb 11.04 oz Most Recent Monitor Data Heart Rate from ECG 67 NIBP 164/70 NIBP BP-Mean 101 Respiration from ECG 34 SpO2 98 I&O: 06/07/20 06/08/20 06/09/20 06:59 06:59 06:59 Intake Total 1365 669.6 Output Total 1155 1005 Balance 210 -335.4 Result Diagrams: 06/08/20 03:37 06/08/20 03:37 Additional Labs: Accuchecks 06/08/20 06/08/20 06/08/20 16:52 09:49 00:14 POC Glucose 287 H 137 H 179 H 06/07/20 06/07/20 20:47 15:58 POC Glucose 175 H 142 H Hospitalist ROS - Medication Medications: Active Medications Generic Name Dose Route Start Last Admin Trade Name Inge PRN Reason Stop Dose Admin Acetaminophen 650 mg 05/29/20 09:58 06/07/20 02:13 Acetaminophen 650 Mg Suppository [place] 650 mg Q4H PRN Administration Headache/Fever or Pain Acetaminophen 650 mg 05/29/20 09:58 06/04/20 01:39 Acetaminophen 325 Mg Tab PO 650 mg Q4H PRN Administration Fever/Mild Pain Ascorbic Acid 1,000 mg 05/29/20 09:00 06/08/20 10:13 Ascorbic Acid 500 Mg Chewable Tablet PO Not Given DAILY GEO Benzonatate 100 mg 05/29/20 15:00 06/08/20 14:51 Benzonatate 100 Mg Cap PO 100 mg TID GEO Administration Cholecalciferol 400 units 05/29/20 09:00 06/08/20 10:14 Cholecalciferol (Vitamin D3) 400 Units Tab PO Not Given DAILY GEO Dexamethasone 8 mg 05/29/20 09:00 06/08/20 08:13 Dexamethasone 4 Mg/Ml Vial SLOW IVP 8 mg DAILY GEO Administration Enoxaparin Sodium 60 mg 05/29/20 21:00 06/08/20 08:13 Enoxaparin Sodium 60 Mg/0.6 Ml Syringe SC 60 mg 0900,2100 GEO Administration Ergocalciferol 1.25 mg 06/07/20 09:00 06/07/20 09:59 Ergocalciferol 1.25 Mg(50,000 Units) Cap PO Not Given Q7DAYS GEO Famotidine 20 mg 06/07/20 21:00 06/08/20 08:13 Famotidine/Pf 20 Mg/2ml Vial SLOW IVP 20 mg BID GEO Administration Dexmedetomidine HCl 400 mcg/ 100 mls @ 0 mls/hr 06/02/20 10:45 06/08/20 14:51 Sodium Chloride IVPB 100 mls INF GEO Administration Protocol Per Protocol Cefepime HCl 1 gm/ Sodium 100 mls @ 200 mls/hr 06/04/20 21:00 06/08/20 08:12 Chloride IVPB 100 mls Q12HR GEO Administration Insulin Glargine 15 units/ 0.15 mls @ 0 mls/hr 06/05/20 21:00 06/08/20 10:13 Miscellaneous Medication SC 0.15 mls BID GEO Administration Insulin Human Lispro 0 units 06/07/20 17:18 06/08/20 16:54 Humalog 300 Units/3 Ml Vial SC 4 unit .MILD SLIDING SCALE PRN Administration Mild Correctional Scale Sodium Chloride 10 ml 05/29/20 09:00 06/08/20 08:14 Flush - Normal Saline 10 Ml Syringe IVF 10 ml Q12HR GEO Administration Zinc Sulfate 220 mg 05/29/20 09:00 06/08/20 10:14 Zinc Sulfate 220 Mg Cap PO Not Given DAILY GEO - Exam General Appearance: NAD, awake alert Heart: RRR, no murmur, no gallops, no rubs, normal peripheral pulses Respiratory: rales (Modest bilateral.) Gastrointestinal: soft, non-tender, non-distended, normal bowel sounds, no palpable masses, no hepatomegaly, no splenomegaly, no bruit Extremities: no cyanosis, no clubbing, no edema Skin: normal turgor Neurological: no focal deficits Musculoskeletal: generalized weakness (Mild) Psychiatric: normal affect, normal behavior, A&O x 3 Hosp A/P (1) Acute respiratory failure with hypoxemia Code(s): J96.01 - ACUTE RESPIRATORY FAILURE WITH HYPOXIA Status: Acute (2) Pneumonia due to COVID-19 virus Code(s): U07.1 - COVID-19; J12.89 - OTHER VIRAL PNEUMONIA Status: Acute (3) Diabetes mellitus Code(s): E11.9 - TYPE 2 DIABETES MELLITUS WITHOUT COMPLICATIONS Status: Chronic Qualifiers: Diabetes mellitus type: type 2 Diabetes mellitus terminal block assembler insulin use: with terminal block assembler use Diabetes mellitus complication status: without complication Qualified Code(s): E11.9 - Type 2 diabetes mellitus without complications; Z79.4 - skilled nursing (current) use of 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 Pulmonary following. Extubated on 06/06/2020. Continues to require a fair amount of supplemental oxygen support. Transition to IMCU on 06/07/2020. COVID-19 pneumonia: Bilateral infiltrates. Respiratory failure. Continue dexamethasone, escalated dose of Lovenox, vitamin supplementation. Anemia: Etiology is unclear. Remaining relatively stable. Continue to follow daily and transfuse as needed. Acute kidney injury: Presented with an initial GFR of 22. Subsequent hydration has increased up to 80. Diabetes mellitus: Blood sugars remaining significantly elevated. Likely due to the Decadron. Increase Lantus to 15 units subcu twice daily on 06/05/2020. Significant improvement. Continue aggressive sliding scale. Dysphagia: Appreciate speech therapy assessment and recommendations. Patient would like to have ice chips with risk. Accommodated that request. Disposition: Physical therapy.
--- NOTE | 2020-06-09 05:51 | PRG ---
DATE OF SERVICE: 06/08/2020 SUBJECTIVE: [facility] is still a little encephalopathic. Oximetry is 99% on high-flow oxygen. OBJECTIVE: VITAL SIGNS: Blood pressure 154/75, heart rate is 80, respiratory rate is in the teens. Lungs, heart, and abdomen are unchanged otherwise. LABORATORY DATA: White count 11.8, hemoglobin 7.2, platelets 443. Electrolytes are unremarkable. BUN 43. IMPRESSION AND PLAN: 1. COVID pneumonia, clinically improving. 2. Slowly progressive anemia in spite of the negative fluid balance. She will need to be transfused most likely tomorrow. If she continues to drop in her hemoglobin, might be reasonable to hold or decrease her Lovenox. 3. We will continue to follow. Job ID: [id number]
[2020-06-09 06:21] LABS: Puncture Site RRA
[2020-06-09 08:21] LABS: Anion Gap 15 mmol/L (10-20); BUN (Urea Nitrogen) 39 mg/dL (9.8-20.1); Calc. Creatinine Clearance 143 mL/min (70-130); Calcium 7.3 mg/dL (7.8-10.44); Carbon Dioxide 21 mmol/L (22-29); Chloride 111 mmol/L (98-107); Glucose 164 mg/dL (70-105); Potassium 3.8 mmol/L (3.5-5.1); Sodium 143 mmol/L (136-145)
[2020-06-09 08:27] LABS: Hemoglobin 6.6 g/dL (12.0-16.0); Mean Corpuscular HGB CONC 32.2 g/dL (32.0-36.0); Mean Corpuscular Hemoglobin 31.5 pg (27.0-31.0); Mean Corpuscular Volume 97.9 fL (78.0-98.0); Mean Platelet Volume 9.4 fL (7.4-10.4); Platelet Count 409 thou/uL (130-400); White Blood Cell (WBC) Count 9.5 thou/uL (4.8-10.8)
[2020-06-09 09:25] LABS: Band 7 % (5-11); Hypochromia SLIGHT = 6-15 cells (100X) (0-5/hpf); Lymphocytes 14 % (21-51); MDiff Complete? YES; Metamyelocyte 1 % (0-0); Monocytes 6 % (0-10); Neutrophil 72 % (42-75); Platelet Morphology Comment Appears Increased; Polychromasia SLIGHT = 2-3 cells (100X) (0-2/hpf)
[2020-06-09] MEDS: Cefepime 1 GM in Sodium Chloride 0.9% 100 ML IVPB SCH ×2 (09:32→20:17)
[2020-06-09] MEDS: Cholecalciferol (Vitamin D3) 400 UNITS TAB PO SCH (09:33)
[2020-06-09] MEDS: Insulin Glargine 15 UNITS in Pre-Filled Syringe SC SCH ×2 (09:33→21:20)
[2020-06-09] MEDS: Acetaminophen 325 MG TAB PO PRN (09:33)
[2020-06-09] MEDS: Benzonatate 100 MG CAP PO SCH ×3 (09:33→20:16)
[2020-06-09] MEDS: Ascorbic Acid 500 mg Chewable Tablet PO SCH (09:33)
[2020-06-09] MEDS: Zinc Sulfate 220 MG CAP PO SCH (09:33)
[2020-06-09] MEDS: Famotidine/PF 20 mg/2ml Vial SLOW IVP SCH (09:34)
[2020-06-09] MEDS: Dexamethasone 4 mg/ml Vial SLOW IVP SCH (09:34)
[2020-06-09 10:36] LABS: Reticulocyte Count 2.6 % (0.5-1.5)
[2020-06-09 11:42] LABS: Iron 64 ug/dL (50-170); Iron Binding Capacity, Total 129 mcg/dL (265-497)
[2020-06-09 14:04] VITALS: BMI 36.4
[2020-06-09] MEDS ORDERED: Senokot 8.6 MG TAB PO PRN (15:09)
[2020-06-09] MEDS: HumaLOG 300 UNITS/3 ML VIAL SC PRN ×2 (16:30→21:20)
[2020-06-09 17:16] LABS: Hemoglobin 9.2 g/dL (12.0-16.0)
--- NOTE | 2020-06-09 17:57 | PDOC.HOSPP ---
- Subjective Encounter Date: 06/09/20 Subjective: Patient feeling generally well today. She has no complaints. She has not had a bowel movement since admission. When asked she reports that this is fairly common for her. She certainly had no melena or hematochezia. - Objective Vital Signs & Weight: Vital Signs (12 hours) Temp Pulse Ox 06/09/20 14:58 98.9 F 06/09/20 12:29 97.4 F L 06/09/20 12:13 97.8 F 06/09/20 11:24 98 06/09/20 07:22 96.5 F L Weight Admit Weight 220 lb Weight 232 lb 9.403 oz Most Recent Monitor Data Heart Rate from ECG 59 NIBP 160/72 NIBP BP-Mean 101 Respiration from ECG 24 SpO2 100 I&O: 06/08/20 06/09/20 06/10/20 06:59 06:59 06:59 Intake Total 669.6 1579 350 Output Total 1005 1050 Balance -335.4 529 350 Result Diagrams: 06/09/20 16:51 06/09/20 07:53 Additional Labs: Accuchecks 06/09/20 06/09/20 06/09/20 16:32 09:45 05:47 POC Glucose 184 H 166 H 157 H 06/08/20 22:05 POC Glucose 211 H Hospitalist ROS - Medication Medications: Active Medications Generic Name Dose Route Start Last Admin Trade Name Freq PRN Reason Stop Dose Admin Acetaminophen 650 mg 05/29/20 09:58 06/07/20 02:13 Acetaminophen 650 Mg Suppository [place] 650 mg Q4H PRN Administration Headache/Fever or Pain Acetaminophen 650 mg 05/29/20 09:58 06/09/20 09:33 Acetaminophen 325 Mg Tab PO 650 mg Q4H PRN Administration Fever/Mild Pain Ascorbic Acid 1,000 mg 05/29/20 09:00 06/09/20 09:33 Ascorbic Acid 500 Mg Chewable Tablet PO 1,000 mg DAILY GEO Administration Benzonatate 100 mg 05/29/20 15:00 06/09/20 14:52 Benzonatate 100 Mg Cap PO 100 mg TID GEO Administration Cholecalciferol 400 units 05/29/20 09:00 06/09/20 09:33 Cholecalciferol (Vitamin D3) 400 Units Tab PO 400 units DAILY GEO Administration Ergocalciferol 1.25 mg 06/07/20 09:00 06/07/20 09:59 Ergocalciferol 1.25 Mg(50,000 Units) Cap PO Not Given Q7DAYS GEO Cefepime HCl 1 gm/ Sodium 100 mls @ 200 mls/hr 06/04/20 21:00 06/09/20 09:32 Chloride IVPB 100 mls Q12HR GEO Administration Insulin Glargine 15 units/ 0.15 mls @ 0 mls/hr 06/05/20 21:00 06/09/20 09:33 Miscellaneous Medication SC 0.15 mls BID GEO Administration Insulin Human Lispro 0 units 06/07/20 17:18 06/09/20 16:30 Humalog 300 Units/3 Ml Vial SC 2 unit .MILD SLIDING SCALE PRN Administration Mild Correctional Scale Sodium Chloride 10 ml 05/29/20 09:00 06/09/20 09:34 Flush - Normal Saline 10 Ml Syringe IVF 10 ml Q12HR GEO Administration Zinc Sulfate 220 mg 05/29/20 09:00 06/09/20 09:33 Zinc Sulfate 220 Mg Cap PO 220 mg DAILY GEO Administration - Exam General Appearance: NAD, awake alert General - other findings: Obese. Heart: RRR, no murmur, no gallops, no rubs, normal peripheral pulses Respiratory: no wheezes, no ronchi, normal chest expansion, no tachypnea, rales Gastrointestinal: soft, non-tender, non-distended, normal bowel sounds, no palpable masses, no hepatomegaly, no splenomegaly, no bruit Extremities: no cyanosis, no clubbing, no edema Skin: normal turgor Neurological: no focal deficits Musculoskeletal: generalized weakness Psychiatric: normal affect, normal behavior Hosp A/P (1) Acute respiratory failure with hypoxemia Code(s): J96.01 - ACUTE RESPIRATORY FAILURE WITH HYPOXIA Status: Acute (2) Pneumonia due to COVID-19 virus Code(s): U07.1 - COVID-19; J12.89 - OTHER VIRAL PNEUMONIA Status: Acute (3) Diabetes mellitus Code(s): E11.9 - TYPE 2 DIABETES MELLITUS WITHOUT COMPLICATIONS Status: Chronic Qualifiers: Diabetes mellitus type: type 2 Diabetes mellitus fpc insulin use: with exterminator helper termite use Diabetes mellitus complication status: without complication Qualified Code(s): E11.9 - Type 2 diabetes mellitus without complications; Z79.4 - intermediate teacher (current) use of 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 Pulmonary following. Extubated on 06/06/2020. Transition to high flow nasal cannula. Transition to IMCU on 06/07/2020. Can transition to medical floor as of 06/09/2020. COVID-19 pneumonia: Bilateral infiltrates. Respiratory failure. Continue dexamethasone, escalated dose of Lovenox, vitamin supplementation. Anemia: Etiology is unclear. Worsened on 06/09/2020 requiring transfusion. Her iron levels were normal at 64, ferritin elevated at 701 but likely secondary to Covid, TIBC slightly low at 129. Lovenox held. Acute kidney injury: Presented with an initial GFR of 22. Subsequent hydration has increased up to 80. Diabetes mellitus: Blood sugars remaining significantly elevated. Likely due to the Decadron. Increase Lantus to 15 units subcu twice daily on 06/05/2020. Significant improvement. Continue aggressive sliding scale. Dysphagia: Appreciate speech therapy assessment and recommendations. Patient would like to have ice chips with risk. Accommodated that request. Continue reassessment with speech therapy. Disposition: Transitioned from the ICU to the IMCU to the medical floor. Physical therapy. DVT prophylaxis: Lovenox held when the patient developed significant anemia requiring transfusion. SCDs applied. PUD prophylaxis: P.o. famotidine.
[2020-06-09] MEDS: Famotidine 20 MG TAB PO SCH (20:17)
--- NOTE | 2020-06-09 20:42 | PRG ---
DATE OF SERVICE: 06/09/2020 OBJECTIVE: VITAL SIGNS: [place] Mckeon is afebrile. Heart rate is in 80s, respiratory rate is in the 20s, FiO2 is at 50%, blood pressure is 174/77. LUNGS: Clear. HEART: Regular rhythm. ABDOMEN: Soft. EXTREMITIES: Without edema. IMPRESSION: Coronavirus disease pneumonia, slowly improving, status post mechanical ventilation. PLAN: Continue support. Job ID: [id number]
[2020-06-09] MEDS: Apixaban 2.5 MG TAB PO SCH (21:10)
[2020-06-10] MEDS ORDERED: hydrALAZINE 20 MG/ML VIAL SLOW IVP PRN (00:06)
[2020-06-10] MEDS ORDERED: Ibuprofen 600 MG TAB PO SCH ×2 (00:15→06:00)
[2020-06-10 06:54] LABS: Anion Gap 16 mmol/L (10-20); BUN (Urea Nitrogen) 31 mg/dL (9.8-20.1); Calc. Creatinine Clearance 151 mL/min (70-130); Calcium 7.6 mg/dL (7.8-10.44); Carbon Dioxide 20 mmol/L (22-29); Chloride 110 mmol/L (98-107); Glucose 119 mg/dL (70-105); Potassium 3.6 mmol/L (3.5-5.1); Sodium 142 mmol/L (136-145)
[2020-06-10] MEDS: Zinc Sulfate 220 MG CAP PO SCH (08:32)
[2020-06-10] MEDS: Famotidine 20 MG TAB PO SCH ×2 (08:32→20:09)
[2020-06-10] MEDS: Cholecalciferol (Vitamin D3) 400 UNITS TAB PO SCH (08:32)
[2020-06-10] MEDS: Dexamethasone 4 MG TAB PO SCH (08:32)
[2020-06-10] MEDS: Amlodipine 5 MG TAB PO SCH (08:32)
[2020-06-10] MEDS: Apixaban 2.5 MG TAB PO SCH ×2 (08:33→20:09)
[2020-06-10] MEDS: Insulin Glargine 15 UNITS in Pre-Filled Syringe SC SCH (08:33)
[2020-06-10] MEDS: Ascorbic Acid 500 mg Chewable Tablet PO SCH (08:33)
[2020-06-10] MEDS: Benzonatate 100 MG CAP PO SCH ×3 (08:33→20:09)
[2020-06-10] MEDS: Cefepime 1 GM in Sodium Chloride 0.9% 100 ML IVPB SCH (08:39)
[2020-06-10 11:10] LABS: Hemoglobin 9.1 g/dL (12.0-16.0); Mean Corpuscular HGB CONC 32.8 g/dL (32.0-36.0); Mean Corpuscular Hemoglobin 31.3 pg (27.0-31.0); Mean Corpuscular Volume 95.5 fL (78.0-98.0); Mean Platelet Volume 9.9 fL (7.4-10.4); Platelet Count 517 thou/uL (130-400); RBC Distribution Width 13.8 % (11.5-14.5); Red Blood Cell (RBC) Count 2.92 mill/uL (4.20-5.40); White Blood Cell (WBC) Count 14.9 thou/uL (4.8-10.8)
[2020-06-10 11:12] LABS: Band 3 % (5-11); Lymphocytes 8 % (21-51); MDiff Complete? YES; Metamyelocyte 1 % (0-0); Monocytes 3 % (0-10); Neutrophil 85 % (42-75); Platelet Morphology Comment Appears Increased; Polychromasia SLIGHT = 2-3 cells (100X) (0-2/hpf); Schistocytes SLIGHT = 2-5 cells (100X) (0-1/hpf)
--- NOTE | 2020-06-10 15:23 | PRG ---
DATE OF SERVICE: 06/10/2020 OBJECTIVE: VITAL SIGNS: Mckeon is afebrile. Oximetry is 93% to 97% today. She is down to 4 L cannula and actually this afternoon on 4 L cannula oximetry is 100%. Blood pressure 174/67. LUNGS: Clear. HEART: Regular rhythm. ABDOMEN: Soft. IMPRESSION: COVID pneumonia, clinically improving. Oxygen can be arranged. She could be discharged home. Job ID: [id number]
[2020-06-10 15:32] LABS: Hemoglobin 9.4 g/dL (12.0-16.0)
--- NOTE | 2020-06-10 15:39 | PDOC.HOSPP ---
- Subjective Encounter Date: 06/10/20 Subjective: Feeling very well today. No complaints. Breathing comfortably. - Objective Vital Signs & Weight: Vital Signs (12 hours) Temp Pulse Resp BP Pulse Ox 06/10/20 14:11 100 06/10/20 12:00 98.4 F 93 18 174/67 H 100 06/10/20 08:30 99 06/10/20 08:00 98.2 F 97 20 160/62 H 99 06/10/20 04:00 98.4 F 89 20 147/64 H 98 Weight Admit Weight 220 lb Weight 232 lb 9.403 oz Most Recent Monitor Data Heart Rate from ECG 59 NIBP 160/72 NIBP BP-Mean 101 Respiration from ECG 24 SpO2 100 I&O: 06/09/20 06/10/20 06/11/20 06:59 06:59 06:59 Intake Total 1579 986 Output Total 1050 1250 400 Balance 159 -923 -842 Result Diagrams: 06/10/20 15:21 06/10/20 06:18 Additional Labs: Accuchecks 06/10/20 06/09/20 06/09/20 04:51 20:24 16:32 POC Glucose 129 H 290 H 184 H Hospitalist ROS - Medication Medications: Active Medications Generic Name Dose Route Start Last Admin Trade Name Freq PRN Reason Stop Dose Admin Acetaminophen 650 mg 05/29/20 09:58 06/07/20 02:13 Acetaminophen 650 Mg Suppository [place] 650 mg Q4H PRN Administration Headache/Fever or Pain Acetaminophen 650 mg 05/29/20 09:58 06/09/20 09:33 Acetaminophen 325 Mg Tab PO 650 mg Q4H PRN Administration Fever/Mild Pain Amlodipine Besylate 5 mg 06/10/20 09:00 06/10/20 08:32 Amlodipine 5 Mg Tab PO 5 mg DAILY GEO Administration Apixaban 2.5 mg 06/09/20 21:00 06/10/20 08:33 Apixaban 2.5 Mg Tab PO 2.5 mg BID GEO Administration Ascorbic Acid 1,000 mg 05/29/20 09:00 06/10/20 08:33 Ascorbic Acid 500 Mg Chewable Tablet PO 1,000 mg DAILY GEO Administration Benzonatate 100 mg 05/29/20 15:00 06/10/20 15:16 Benzonatate 100 Mg Cap PO 100 mg TID GEO Administration Cholecalciferol 400 units 05/29/20 09:00 06/10/20 08:32 Cholecalciferol (Vitamin D3) 400 Units Tab PO 400 units DAILY GEO Administration Dexamethasone 6 mg 06/10/20 08:00 06/10/20 08:32 Dexamethasone 4 Mg Tab PO 6 mg QAM-WM GEO Administration Ergocalciferol 1.25 mg 06/07/20 09:00 06/07/20 09:59 Ergocalciferol 1.25 Mg(50,000 Units) Cap PO Not Given Q7DAYS GEO Famotidine 20 mg 06/09/20 21:00 06/10/20 08:32 Famotidine 20 Mg Tab PO 20 mg BID GEO Administration Hydralazine HCl 10 mg 06/10/20 00:06 06/10/20 03:27 Hydralazine 20 Mg/Ml Vial SLOW IVP 10 mg Q4H PRN Administration SBP > 180 and HR < 70 Cefepime HCl 1 gm/ Sodium 100 mls @ 200 mls/hr 06/04/20 21:00 06/10/20 08:39 Chloride IVPB 06/11/20 23:59 100 mls Q12HR GEO Administration Insulin Glargine 15 units/ 0.15 mls @ 0 mls/hr 06/05/20 21:00 06/10/20 08:33 Miscellaneous Medication SC 0.15 mls BID GEO Administration Insulin Human Lispro 0 units 06/07/20 17:18 06/09/20 21:20 Humalog 300 Units/3 Ml Vial SC 4 unit .MILD SLIDING SCALE PRN Administration Mild Correctional Scale Sodium Chloride 10 ml 05/29/20 09:00 06/10/20 08:34 Flush - Normal Saline 10 Ml Syringe IVF 10 ml Q12HR GEO Administration Zinc Sulfate 220 mg 05/29/20 09:00 06/10/20 08:32 Zinc Sulfate 220 Mg Cap PO 220 mg DAILY GEO Administration - Exam General Appearance: NAD, awake alert General - other findings: Obese Heart: RRR, no murmur, no gallops, no rubs, normal peripheral pulses Respiratory: CTAB, no wheezes, no rales, no ronchi, normal chest expansion, no tachypnea, normal percussion Gastrointestinal: soft, non-tender, non-distended, normal bowel sounds, no palpable masses, no hepatomegaly, no splenomegaly, no bruit Extremities: no cyanosis, no clubbing, no edema Skin: normal turgor Neurological: no focal deficits Musculoskeletal: normal tone, normal strength Psychiatric: normal affect, normal behavior, A&O x 3 Hosp A/P (1) Acute respiratory failure with hypoxemia Code(s): J96.01 - ACUTE RESPIRATORY FAILURE WITH HYPOXIA Status: Acute (2) Pneumonia due to COVID-19 virus Code(s): U07.1 - COVID-19; J12.89 - OTHER VIRAL PNEUMONIA Status: Acute (3) Diabetes mellitus Code(s): E11.9 - TYPE 2 DIABETES MELLITUS WITHOUT COMPLICATIONS Status: Chronic Qualifiers: Diabetes mellitus type: type 2 Diabetes mellitus usp insulin use: with usp use Diabetes mellitus complication status: without complication Qualified Code(s): E11.9 - Type 2 diabetes mellitus without complications; Z79.4 - long-term (current) use of insulin (4) Hypertension Code(s): I10 - ESSENTIAL (PRIMARY) HYPERTENSION Status: Chronic Qualifiers: Hypertension type: essential hypertension Qualified Code(s): I10 - Essential (primary) hypertension (5) Hypokalemia Code(s): E87.6 - HYPOKALEMIA Status: Acute (6) Anemia Code(s): D64.9 - ANEMIA, UNSPECIFIED Status: Acute Qualifiers: Anemia type: unspecified type Qualified Code(s): D64.9 - Anemia, unspecified (7) Acute kidney injury Code(s): N17.9 - ACUTE KIDNEY FAILURE, UNSPECIFIED Status: Resolved (8) Dysphagia Code(s): R13.10 - DYSPHAGIA, UNSPECIFIED Status: Acute - Plan Acute hypoxic respiratory failure: Secondary to COVID-19 pneumonia. Pulmonary following. Extubated on 06/06/2020. Transition to high flow nasal cannula. Transition to IMCU on 06/07/2020. Can transition to medical floor as of 06/09/2020. Transition down to 4 L of nasal cannula on 06/10/2020. Continuing to increase activity. Case management consult to arrange home O2. COVID-19 pneumonia: Bilateral infiltrates. Respiratory failure. Continue dexamethasone, escalated dose of Lovenox, vitamin supplementation. Anemia: Etiology is unclear. Worsened on 06/09/2020 requiring transfusion. Her iron levels were normal at 64, ferritin elevated at 701 but likely secondary to Covid, TIBC slightly low at 129. Lovenox held. Hemoglobin remained stable post transfusion on 06/10/2020 Acute kidney injury: Presented with an initial GFR of 22. Subsequent hydration has increased up to 80. Diabetes mellitus: Blood sugars remaining significantly elevated. Likely due to the Decadron. Increase Lantus to 15 units subcu twice daily on 06/05/2020. Significant improvement. Continue aggressive sliding scale. Dysphagia: Appreciate speech therapy assessment and recommendations. Initially was held n.p.o. Subsequent evaluation she was moved to pured with nectar thick liquids although the patient requested ice and was accommodated. We will need ongoing assessment as I suspect this will continue to improve. Disposition: Transitioned from the ICU to the IMCU to the medical floor. Physical therapy. Once patient was weaned down to 4 L of nasal cannula oxygen Case management consult was placed in order to help assist with home O2. DVT prophylaxis: Lovenox held when the patient developed significant anemia requiring transfusion. SCDs applied. PUD prophylaxis: P.o. famotidine.
[2020-06-10] MEDS: HumaLOG 300 UNITS/3 ML VIAL SC PRN (16:38)
[2020-06-10] MEDS: Ibuprofen 200 MG TAB PO PRN (17:40)
[2020-06-11] MEDS: Ibuprofen 200 MG TAB PO PRN ×2 (03:54→21:19)
[2020-06-11 06:37] LABS: Hemoglobin 8.6 g/dL (12.0-16.0); Mean Corpuscular Hemoglobin 30.8 pg (27.0-31.0); Mean Corpuscular Volume 96.2 fL (78.0-98.0); Mean Platelet Volume 8.9 fL (7.4-10.4); Platelet Count 586 thou/uL (130-400); RBC Distribution Width 13.6 % (11.5-14.5); Red Blood Cell (RBC) Count 2.79 mill/uL (4.20-5.40); White Blood Cell (WBC) Count 13.8 thou/uL (4.8-10.8)
[2020-06-11 06:43] LABS: Anion Gap 15 mmol/L (10-20); BUN (Urea Nitrogen) 24 mg/dL (9.8-20.1); Calc. Creatinine Clearance 147 mL/min (70-130); Calcium 7.9 mg/dL (7.8-10.44); Carbon Dioxide 21 mmol/L (22-29); Chloride 111 mmol/L (98-107); Glucose 152 mg/dL (70-105); Potassium 4.6 mmol/L (3.5-5.1); Sodium 142 mmol/L (136-145)
[2020-06-11 08:03] LABS: Band 4 % (5-11); Lymphocytes 9 % (21-51); MDiff Complete? YES; Monocytes 4 % (0-10); Myelocyte 1 % (0-0); Neutrophil 80 % (42-75); Platelet Morphology Comment Appears Increased; Polychromasia SLIGHT = 2-3 cells (100X) (0-2/hpf); Reactive Lymphocytes 1 % (0-10)
[2020-06-11] MEDS: Dexamethasone 4 MG TAB PO SCH (09:31)
[2020-06-11] MEDS: Apixaban 2.5 MG TAB PO SCH ×2 (09:34→21:19)
[2020-06-11] MEDS: Famotidine 20 MG TAB PO SCH ×2 (09:35→21:19)
[2020-06-11] MEDS: Cholecalciferol (Vitamin D3) 400 UNITS TAB PO SCH (09:37)
[2020-06-11] MEDS: Zinc Sulfate 220 MG CAP PO SCH (09:37)
[2020-06-11] MEDS: Benzonatate 100 MG CAP PO SCH ×3 (09:37→21:19)
[2020-06-11] MEDS: Amlodipine 5 MG TAB PO SCH (09:38)
[2020-06-11] MEDS: Ascorbic Acid 500 mg Chewable Tablet PO SCH (09:38)
[2020-06-11] MEDS: Insulin Glargine 15 UNITS in Pre-Filled Syringe SC SCH (09:42)
[2020-06-11] MEDS: HumaLOG 300 UNITS/3 ML VIAL SC PRN ×2 (17:16→21:51)
--- NOTE | 2020-06-11 17:28 | PDOC.HOSPP ---
- Subjective Encounter Date: 06/11/20 Subjective: Patient feels very eager to go home. She says she feels fine otherwise. She has been profoundly weak and was encouraged to consider some rehab however she wants to go home. Her nurses and family have been trying to encourage her to stay a bit longer to continue to get stronger. - Objective Vital Signs & Weight: Vital Signs (12 hours) Temp Pulse Resp BP Pulse Ox 06/11/20 09:38 89 06/11/20 08:00 99 06/11/20 07:56 97.3 F L 89 16 175/70 H 99 Weight Admit Weight 220 lb Weight 232 lb 9.403 oz Most Recent Monitor Data Heart Rate from ECG 59 NIBP 160/72 NIBP BP-Mean 101 Respiration from ECG 24 SpO2 100 I&O: 06/10/20 06/11/20 06/12/20 06:59 06:59 06:59 Intake Total 986 560 Output Total 1250 1150 Balance -264 -590 Result Diagrams: 06/11/20 05:36 06/11/20 05:36 Additional Labs: Accuchecks 06/11/20 06/11/20 06/11/20 15:55 11:39 04:51 POC Glucose 279 H 271 H 159 H 06/10/20 06/10/20 20:03 11:36 POC Glucose 232 H 152 H Hospitalist ROS - Medication Medications: Active Medications Generic Name Dose Route Start Last Admin Trade Name Freq PRN Reason Stop Dose Admin Acetaminophen 650 mg 05/29/20 09:58 06/07/20 02:13 Acetaminophen 650 Mg Suppository [place] 650 mg Q4H PRN Administration Headache/Fever or Pain Acetaminophen 650 mg 05/29/20 09:58 06/09/20 09:33 Acetaminophen 325 Mg Tab PO 650 mg Q4H PRN Administration Fever/Mild Pain Amlodipine Besylate 5 mg 06/10/20 09:00 06/11/20 09:38 Amlodipine 5 Mg Tab PO 5 mg DAILY GEO Administration Apixaban 2.5 mg 06/09/20 21:00 06/11/20 09:34 Apixaban 2.5 Mg Tab PO 2.5 mg BID GEO Administration Ascorbic Acid 1,000 mg 05/29/20 09:00 06/11/20 09:38 Ascorbic Acid 500 Mg Chewable Tablet PO 1,000 mg DAILY GEO Administration Benzonatate 100 mg 12/26/20 15:00 06/11/20 16:28 Benzonatate 100 Mg Cap PO Not Given TID GEO Cholecalciferol 400 units 05/29/20 09:00 06/11/20 09:37 Cholecalciferol (Vitamin D3) 400 Units Tab PO 400 units DAILY GEO Administration Dexamethasone 6 mg 06/10/20 08:00 06/11/20 09:31 Dexamethasone 4 Mg Tab PO 6 mg QAM-WM GEO Administration Ergocalciferol 1.25 mg 06/07/20 09:00 06/07/20 09:59 Ergocalciferol 1.25 Mg(50,000 Units) Cap PO Not Given Q7DAYS GEO Famotidine 20 mg 06/09/20 21:00 06/11/20 09:35 Famotidine 20 Mg Tab PO 20 mg BID GEO Administration Hydralazine HCl 10 mg 06/10/20 00:06 06/10/20 03:27 Hydralazine 20 Mg/Ml Vial SLOW IVP 10 mg Q4H PRN Administration SBP > 180 and HR < 70 Insulin Glargine 15 units/ 0.15 mls @ 0 mls/hr 06/11/20 09:00 06/11/20 09:42 Miscellaneous Medication SC 0.15 mls QAM GEO Administration Ibuprofen 400 mg 06/10/20 17:10 06/11/20 03:54 Ibuprofen 200 Mg Tab PO 400 mg Q6H PRN Administration Headache, Aches or Pain Insulin Human Lispro 0 units 06/07/20 17:18 06/11/20 17:16 Humalog 300 Units/3 Ml Vial SC 4 unit .MILD SLIDING SCALE PRN Administration Mild Correctional Scale Sodium Chloride 10 ml 05/29/20 09:00 06/11/20 09:42 Flush - Normal Saline 10 Ml Syringe IVF 10 ml Q12HR GEO Administration Zinc Sulfate 220 mg 05/29/20 09:00 06/11/20 09:37 Zinc Sulfate 220 Mg Cap PO 220 mg DAILY GEO Administration - Exam General Appearance: NAD, awake alert Heart: RRR, no murmur, no gallops, no rubs, normal peripheral pulses Respiratory: CTAB, no wheezes, no rales, no ronchi, normal chest expansion, no tachypnea, normal percussion Gastrointestinal: soft, non-tender, non-distended, normal bowel sounds, no palpable masses, no hepatomegaly, no splenomegaly, no bruit Extremities: no cyanosis, no clubbing, no edema Skin: normal turgor Musculoskeletal: normal tone, generalized weakness Psychiatric: normal affect, normal behavior, A&O x 3 Hosp A/P (1) Acute respiratory failure with hypoxemia Code(s): J96.01 - ACUTE RESPIRATORY FAILURE WITH HYPOXIA Status: Acute (2) Pneumonia due to COVID-19 virus Code(s): U07.1 - COVID-19; J12.89 - OTHER VIRAL PNEUMONIA Status: Acute (3) Diabetes mellitus Code(s): E11.9 - TYPE 2 DIABETES MELLITUS WITHOUT COMPLICATIONS Status: Chronic Qualifiers: Diabetes mellitus type: type 2 Diabetes mellitus emt intermediate insulin use: with emt intermediate use Diabetes mellitus complication status: without complication Qualified Code(s): E11.9 - Type 2 diabetes mellitus without complications; Z79.4 - senior care (current) use of insulin (4) Hypertension Code(s): I10 - ESSENTIAL (PRIMARY) HYPERTENSION Status: Chronic Qualifiers: Hypertension type: essential hypertension Qualified Code(s): I10 - Essential (primary) hypertension (5) Hypokalemia Code(s): E87.6 - HYPOKALEMIA Status: Acute (6) Anemia Code(s): D64.9 - ANEMIA, UNSPECIFIED Status: Acute Qualifiers: Anemia type: unspecified type Qualified Code(s): D64.9 - Anemia, unspecified (7) Acute kidney injury Code(s): N17.9 - ACUTE KIDNEY FAILURE, UNSPECIFIED Status: Resolved (8) Dysphagia Code(s): R13.10 - DYSPHAGIA, UNSPECIFIED Status: Acute (9) Physical debility Code(s): R53.81 - OTHER MALAISE Status: Acute - Plan Acute hypoxic respiratory failure: Secondary to COVID-19 pneumonia. Pulmonary following. Extubated on 06/06/2020. Transition to high flow nasal cannula. Transition to IMCU on 06/07/2020. Can transition to medical floor as of 06/09/2020. Transition down to 4 L of nasal cannula on 06/10/2020. Continuing to increase activity. Case management consult to arrange home O2. On 06/11/2020 the patient was able to come completely off oxygen with good saturations. COVID-19 pneumonia: Bilateral infiltrates. Continue dexamethasone, escalated dose of Lovenox, vitamin supplementation. Isolation discontinued on 06/11/2020. Anemia: Etiology is unclear. Worsened on 06/09/2020 requiring transfusion. Her iron levels were normal at 64, ferritin elevated at 701 but likely secondary to Covid, TIBC slightly low at 129. Lovenox held. Hemoglobin remained stable post transfusion on 06/10/2020 Acute kidney injury: Presented with an initial GFR of 22. Subsequent hydration has increased up to 80. Diabetes mellitus: Blood sugars remaining significantly elevated. Likely due to the Decadron. Increase Lantus to 15 units subcu twice daily on 06/05/2020. Significant improvement. Continue aggressive sliding scale. Dysphagia: Appreciate speech therapy assessment and recommendations. Initially was held n.p.o. Subsequent evaluation she was moved to pured with nectar thick liquids although the patient requested ice and was accommodated. We will need ongoing assessment as I suspect this will continue to improve. Disposition: Transitioned from the ICU to the IMCU to the medical floor. Physical therapy. Once patient was weaned down to 4 L of nasal cannula oxygen and finally to room air. Physical debility/weakness: Patient has had some profound weakness as a result of this illness. She has required fair amount of help just getting from bed to chair and chair to bed. Patient was encouraged to consider some additional therapy or rehab however she wants to go home. Continue therapy while she is in the hospital. DVT prophylaxis: Lovenox held when the patient developed significant anemia requiring tra nsfusion. SCDs applied. PUD prophylaxis: P.o. famotidine. Disposition: Patient is medically ready for discharge on 06/11/2020 with the exception of her significant weakness. We will continue to try to work with therapy while she is here. If she is not able to function adequately she could consider rehab although at this time she is not interested in considering that option at all. Would opt for some home health and home physical therapy which have been ordered.
[2020-06-12] MEDS: HumaLOG 300 UNITS/3 ML VIAL SC PRN ×4 (05:54→21:22)
[2020-06-12 07:34] LABS: Anion Gap 12 mmol/L (10-20); BUN (Urea Nitrogen) 26 mg/dL (9.8-20.1); Calc. Creatinine Clearance 141 mL/min (70-130); Calcium 7.7 mg/dL (7.8-10.44); Carbon Dioxide 24 mmol/L (22-29); Chloride 112 mmol/L (98-107); Glucose 235 mg/dL (70-105); Sodium 144 mmol/L (136-145)
[2020-06-12 07:38] LABS: Hemoglobin 7.9 g/dL (12.0-16.0); Mean Corpuscular HGB CONC 32.5 g/dL (32.0-36.0); Mean Corpuscular Hemoglobin 31.3 pg (27.0-31.0); Mean Corpuscular Volume 96.2 fL (78.0-98.0); Mean Platelet Volume 8.8 fL (7.4-10.4); Platelet Count 584 thou/uL (130-400); RBC Distribution Width 13.9 % (11.5-14.5); Red Blood Cell (RBC) Count 2.52 mill/uL (4.20-5.40); White Blood Cell (WBC) Count 10.2 thou/uL (4.8-10.8)
[2020-06-12 08:03] LABS: Band 3 % (5-11); Lymphocytes 10 % (21-51); MDiff Complete? YES; Monocytes 2 % (0-10); Neutrophil 85 % (42-75); Platelet Morphology Comment Appears Increased; RBC Morphology Normal
[2020-06-12] MEDS: Famotidine 20 MG TAB PO SCH ×2 (08:16→21:19)
[2020-06-12] MEDS: Benzonatate 100 MG CAP PO SCH ×3 (08:16→21:19)
[2020-06-12] MEDS: Zinc Sulfate 220 MG CAP PO SCH (08:16)
[2020-06-12] MEDS: Dexamethasone 4 MG TAB PO SCH (08:17)
[2020-06-12] MEDS: Apixaban 2.5 MG TAB PO SCH ×2 (08:17→21:19)
[2020-06-12] MEDS: Ascorbic Acid 500 mg Chewable Tablet PO SCH (08:17)
[2020-06-12] MEDS: Cholecalciferol (Vitamin D3) 400 UNITS TAB PO SCH (08:17)
[2020-06-12] MEDS: Insulin Glargine 15 UNITS in Pre-Filled Syringe SC SCH (08:18)
[2020-06-12] MEDS: Amlodipine 5 MG TAB PO SCH (08:18)
--- NOTE | 2020-06-12 16:07 | PDOC.HOSPP ---
- Subjective Encounter Date: 06/12/20 (f/u covid pneumonia) Encounter Time: 16:05 Subjective: Pt reports she is feeling better - breathing feels good. She states she is very weak - able to sit up on the side of the bed which is new. She denies any new sx. - Objective Vital Signs & Weight: Vital Signs (12 hours) Temp Pulse Resp BP BP Pulse Ox 06/12/20 11:00 98.2 F 82 20 174/78 H 93 L 06/12/20 08:18 97 178/72 H 06/12/20 07:54 97.9 F 97 20 178/72 H 91 L Weight Admit Weight 220 lb Weight 232 lb 9.403 oz Most Recent Monitor Data Heart Rate from ECG 59 NIBP 160/72 NIBP BP-Mean 101 Respiration from ECG 24 SpO2 100 I&O: 06/11/20 06/12/20 06/13/20 06:59 06:59 06:59 Intake Total 560 720 Output Total 1150 Balance -590 720 Result Diagrams: 06/12/20 06:08 06/12/20 06:08 Additional Labs: Accuchecks 06/12/20 06/12/20 06/12/20 15:57 11:00 04:36 POC Glucose 280 H 228 H 231 H 06/11/20 20:29 POC Glucose 315 H Hospitalist ROS - Medication Medications: Active Medications Generic Name Dose Route Start Last Admin Trade Name Freq PRN Reason Stop Dose Admin Acetaminophen 650 mg 05/29/20 09:58 06/07/20 02:13 Acetaminophen 650 Mg Suppository [place] 650 mg Q4H PRN Administration Headache/Fever or Pain Acetaminophen 650 mg 05/29/20 09:58 06/09/20 09:33 Acetaminophen 325 Mg Tab PO 650 mg Q4H PRN Administration Fever/Mild Pain Apixaban 2.5 mg 06/09/20 21:00 06/12/20 08:17 Apixaban 2.5 Mg Tab PO 2.5 mg BID GEO Administration Ascorbic Acid 1,000 mg 05/29/20 09:00 06/12/20 08:17 Ascorbic Acid 500 Mg Chewable Tablet PO 1,000 mg DAILY GEO Administration Benzonatate 100 mg 05/29/20 15:00 06/12/20 08:16 Benzonatate 100 Mg Cap PO 100 mg TID GEO Administration Cholecalciferol 400 units 05/29/20 09:00 06/12/20 08:17 Cholecalciferol (Vitamin D3) 400 Units Tab PO 400 units DAILY GEO Administration Dexamethasone 6 mg 06/10/20 08:00 06/12/20 08:17 Dexamethasone 4 Mg Tab PO 6 mg QAM-WM GEO Administration Ergocalciferol 1.25 mg 06/07/20 09:00 06/07/20 09:59 Ergocalciferol 1.25 Mg(50,000 Units) Cap PO Not Given Q7DAYS GEO Famotidine 20 mg 06/09/20 21:00 06/12/20 08:16 Famotidine 20 Mg Tab PO 20 mg BID GEO Administration Hydralazine HCl 10 mg 06/10/20 00:06 06/10/20 03:27 Hydralazine 20 Mg/Ml Vial SLOW IVP 10 mg Q4H PRN Administration SBP > 180 and HR < 70 Ibuprofen 400 mg 06/10/20 17:10 06/11/20 21:19 Ibuprofen 200 Mg Tab PO 400 mg Q6H PRN Administration Headache, Aches or Pain Insulin Human Lispro 0 units 06/07/20 17:18 06/12/20 13:09 Humalog 300 Units/3 Ml Vial SC 3 unit .MILD SLIDING SCALE PRN Administration Mild Correctional Scale Insulin Human Lispro 0 units 06/11/20 21:21 06/11/20 21:51 Humalog 300 Units/3 Ml Vial SC 4 unit .BEDTIME SLIDING SC PRN Administration Bedtime Correctional Scale Sodium Chloride 10 ml 05/29/20 09:00 06/12/20 08:19 Flush - Normal Saline 10 Ml Syringe IVF 10 ml Q12HR GEO Administration Zinc Sulfate 220 mg 05/29/20 09:00 06/12/20 08:16 Zinc Sulfate 220 Mg Cap PO 220 mg DAILY GEO Administration - Exam General Appearance: NAD Heart: RRR, no murmur Respiratory: no wheezes, no rales, no ronchi Gastrointestinal: soft, non-tender, non-distended, normal bowel sounds Extremities: no cyanosis, no clubbing Extremities - other findings: 2+ bilateral LE edema Psychiatric: normal affect Hosp A/P (1) Acute respiratory failure Code(s): J96.00 - ACUTE RESPIRATORY FAILURE, UNSP W HYPOXIA OR HYPERCAPNIA Status: Acute Qualifiers: Respiratory failure complication: hypoxia Qualified Code(s): J96.01 - Acute respiratory failure with hypoxia (2) Pneumonia due to COVID-19 virus Code(s): U07.1 - COVID-19; J12.89 - OTHER VIRAL PNEUMONIA Status: Acute (3) Diabetes mellitus Code(s): E11.9 - TYPE 2 DIABETES MELLITUS WITHOUT COMPLICATIONS Status: Chronic Qualifiers: Diabetes mellitus type: type 2 Diabetes mellitus penitentiary insulin use: with penitentiary use Diabetes mellitus complication status: without complication Qualified Code(s): E11.9 - Type 2 diabetes mellitus without complications; Z79.4 - half-way (current) use of insulin (4) Hypertension Code(s): I10 - ESSENTIAL (PRIMARY) HYPERTENSION Status: Chronic Qualifiers: Hypertension type: essential hypertension Qualified Code(s): I10 - Essential (primary) hypertension (5) Acute kidney injury Code(s): N17.9 - ACUTE KIDNEY FAILURE, UNSPECIFIED Status: Resolved (6) Metabolic acidosis Code(s): E87.2 - ACIDOSIS Status: Acute (7) Hypoproteinemia Code(s): E77.8 - OTHER DISORDERS OF GLYCOPROTEIN METABOLISM Status: Acute (8) Anemia Code(s): D64.9 - ANEMIA, UNSPECIFIED Status: Acute Qualifiers: Anemia type: unspecified type Qualified Code(s): D64.9 - Anemia, unspecified - Plan Acute hypoxic respiratory failure: Secondary to COVID-19 pneumonia. Extubated on 06/06/2020, then to medical floor on 06/09 Started on high flow oxygen 06/10 - and currently on room air Wean steroids due to improvement COVID-19 pneumonia: Bilateral infiltrates. Continue dexamethasone, escalated dose of Lovenox, vitamin supplementation. Isolation discontinued on 06/11/2020. s/p convalescent plasma Anemia: Etiology is unclear. Worsened on 06/09/2020 requiring transfusion. type and screen tomorrow and transfuse if this is continuing to decline occult test ordered Acute kidney injury: - resolved Dysphagia: Appreciate speech therapy assessment and recommendations. Subsequent evaluation she was moved to [facility] with nectar thick liquids although the patient requested ice and was accommodated. We will need ongoing assessment as I suspect this will continue to improve. Physical debility/weakness: Significant weakness - d/w patient today and she desires IP rehab HTN -not optimally controlled - increase amlodipine to 10 mg daily - home dose - pt also on telmisartan 80 mg at home - hold on this for now - resume hctz 25 mg daily - for edema and home med DM - not optimally controlled - increase lantus to 20 units daily - decrease steroids dvt prophy - eliquis gi prophy - famotidine while on steroids code status full reviewed plan of care with patient, no questions or further needs at end of eval Case management consult for IP rehab - pt is medically ready for transfer when approved
[2020-06-12] MEDS ORDERED: Amlodipine 5 MG TAB PO SCH (16:15)
[2020-06-12] MEDS ORDERED: Hydrochlorothiazide 25 MG TAB PO SCH (16:15)
[2020-06-13] MEDS: Ibuprofen 200 MG TAB PO PRN ×2 (05:55→20:11)
[2020-06-13] MEDS: HumaLOG 300 UNITS/3 ML VIAL SC PRN ×3 (05:56→17:14)
[2020-06-13 07:21] LABS: Anion Gap 13 mmol/L (10-20); BUN (Urea Nitrogen) 21 mg/dL (9.8-20.1); Calc. Creatinine Clearance 134 mL/min (70-130); Carbon Dioxide 24 mmol/L (22-29); Chloride 109 mmol/L (98-107); Glucose 228 mg/dL (70-105); Potassium 3.9 mmol/L (3.5-5.1); Sodium 142 mmol/L (136-145)
[2020-06-13] MEDS: Cholecalciferol (Vitamin D3) 400 UNITS TAB PO SCH (08:33)
[2020-06-13] MEDS: metFORMIN 500 MG TAB PO SCH (08:33)
[2020-06-13] MEDS: Famotidine 20 MG TAB PO SCH ×2 (08:33→20:05)
[2020-06-13] MEDS: Zinc Sulfate 220 MG CAP PO SCH (08:33)
[2020-06-13] MEDS: Dexamethasone 4 MG TAB PO SCH (08:34)
[2020-06-13] MEDS: Ascorbic Acid 500 mg Chewable Tablet PO SCH (08:34)
[2020-06-13] MEDS: Lactinex Tablet PO SCH (08:34)
[2020-06-13] MEDS: Amlodipine 10 MG TAB PO SCH (08:35)
[2020-06-13] MEDS: Benzonatate 100 MG CAP PO SCH ×3 (08:35→20:05)
[2020-06-13] MEDS: Apixaban 2.5 MG TAB PO SCH ×2 (08:35→20:04)
[2020-06-13 08:38] LABS: Eosinophils 1 % (0-10); Hemoglobin 8.7 g/dL (12.0-16.0); Lymphocytes 17 % (21-51); MDiff Complete? YES; Mean Corpuscular HGB CONC 32.3 g/dL (32.0-36.0); Mean Corpuscular Hemoglobin 31.7 pg (27.0-31.0); Mean Corpuscular Volume 98.1 fL (78.0-98.0); Mean Platelet Volume 8.3 fL (7.4-10.4); Monocytes 2 % (0-10); Neutrophil 80 % (42-75); Platelet Count 681 thou/uL (130-400); Platelet Morphology Comment Appears Increased; RBC Distribution Width 13.6 % (11.5-14.5); RBC Morphology Normal; Red Blood Cell (RBC) Count 2.74 mill/uL (4.20-5.40); White Blood Cell (WBC) Count 10.2 thou/uL (4.8-10.8)
[2020-06-13] MEDS ORDERED: Hydrochlorothiazide 25 MG TAB PO SCH (09:00)
[2020-06-13] MEDS: Insulin Glargine 20 UNITS in Pre-Filled Syringe 1 EACH SC SCH (09:54)
--- NOTE | 2020-06-13 13:34 | PDOC.HOSPP ---
- Subjective Encounter Date: 06/13/20 (f/u weakness) Encounter Time: 13:33 Subjective: 55 y/o female with acute resp failure due to covid who required intubation. She has improved and is now on room air. Pt today reports she is able to do more activity with assistance than yesterday. She still has shortness of breath with exertion and feels weak. She has more swelling on left arm today compared to right. Has some erythema around a prior IV site as well as mild erythema proximal to it. She continues to have significant swelling in legs. - Objective Vital Signs & Weight: Vital Signs (12 hours) Temp Pulse Resp BP BP BP Pulse Ox 06/13/20 12:33 97.5 F L 79 20 175/68 H 95 06/13/20 08:35 84 184/73 H 06/13/20 07:00 97.9 F 82 18 185/73 H 97 06/13/20 05:27 97.5 F L 84 18 153/69 H 99 Weight Admit Weight 220 lb Weight 232 lb 9.403 oz Most Recent Monitor Data Heart Rate from ECG 59 NIBP 160/72 NIBP BP-Mean 101 Respiration from ECG 24 SpO2 100 I&O: 06/12/20 06/13/20 06/14/20 06:59 06:59 06:59 Intake Total 720 1250 Balance 720 1250 Result Diagrams: 06/13/20 06:38 06/13/20 06:38 Additional Labs: Accuchecks 06/13/20 06/12/20 06/12/20 11:44 20:47 15:57 POC Glucose 242 H 287 H 280 H Hospitalist ROS - Medication Medications: Active Medications Generic Name Dose Route Start Last Admin Trade Name Freq PRN Reason Stop Dose Admin Acetaminophen 650 mg 05/29/20 09:58 06/07/20 02:13 Acetaminophen 650 Mg Suppository CO 650 mg Q4H PRN Administration Headache/Fever or Pain Acetaminophen 650 mg 05/29/20 09:58 06/09/20 09:33 Acetaminophen 325 Mg Tab PO 650 mg Q4H PRN Administration Fever/Mild Pain Acidophilus 1 tab 06/13/20 09:00 06/13/20 08:34 Lactinex Tablet PO 1 tab DAILY GEO Administration Amlodipine Besylate 10 mg 06/13/20 09:00 06/13/20 08:35 Amlodipine 10 Mg Tab PO 10 mg DAILY GEO Administration Apixaban 2.5 mg 06/09/20 21:00 06/13/20 08:35 Apixaban 2.5 Mg Tab PO 2.5 mg BID GEO Administration Ascorbic Acid 1,000 mg 05/29/20 09:00 06/13/20 08:34 Ascorbic Acid 500 Mg Chewable Tablet PO 1,000 mg DAILY GEO Administration Benzonatate 100 mg 05/29/20 15:00 06/13/20 08:35 Benzonatate 100 Mg Cap PO 100 mg TID GEO Administration Cholecalciferol 400 units 05/29/20 09:00 06/13/20 08:33 Cholecalciferol (Vitamin D3) 400 Units Tab PO 400 units DAILY GEO Administration Dexamethasone 4 mg 06/13/20 08:00 06/13/20 08:34 Dexamethasone 4 Mg Tab PO 4 mg QAM-WM GEO Administration Ergocalciferol 1.25 mg 06/07/20 09:00 06/07/20 09:59 Ergocalciferol 1.25 Mg(50,000 Units) Cap PO Not Given Q7DAYS [facility] Famotidine 20 mg 06/09/20 21:00 06/13/20 08:33 Famotidine 20 Mg Tab PO 20 mg BID GEO Administration Hydralazine HCl 10 mg 06/10/20 00:06 06/10/20 03:27 Hydralazine 20 Mg/Ml Vial SLOW IVP 10 mg Q4H PRN Administration SBP > 180 and HR < 70 Insulin Glargine 20 units/ 0.2 mls @ 0 mls/hr 06/13/20 09:00 06/13/20 09:54 Miscellaneous Medication SC 0.2 mls QAM GEO Administration Ibuprofen 400 mg 06/10/20 17:10 06/13/20 05:55 Ibuprofen 200 Mg Tab PO 400 mg Q6H PRN Administration Headache, Aches or Pain Insulin Human Lispro 0 units 06/07/20 17:18 06/13/20 11:48 Humalog 300 Units/3 Ml Vial SC 3 unit .MILD SLIDING SCALE PRN Administration Mild Correctional Scale Insulin Human Lispro 0 units 06/11/20 21:21 06/12/20 21:22 Humalog 300 Units/3 Ml Vial SC 3 unit .BEDTIME SLIDING SC PRN Administration Bedtime Correctional Scale Metformin HCl 500 mg 06/13/20 08:00 06/13/20 08:33 Metformin 500 Mg Tab PO 500 mg QAM-WM GEO Administration Sodium Chloride 10 ml 05/29/20 09:00 06/13/20 08:35 Flush - Normal Saline 10 Ml Syringe IVF 10 ml Q12HR GEO Administration Zinc Sulfate 220 mg 05/29/20 09:00 06/13/20 08:33 Zinc Sulfate 220 Mg Cap PO 220 mg DAILY GEO Administration - Exam General Appearance: NAD Heart: RRR, no murmur Respiratory: no wheezes, no rales, no ronchi Gastrointestinal: soft, non-tender, non-distended, normal bowel sounds Extremities: no cyanosis, no clubbing Extremities - other findings: 2-3+ edema bilateral LE, 2+ edema LLE, Skin - other findings: erythema and crusting around prior IV site, and small area prox erythema Hosp A/P (1) Acute respiratory failure Code(s): J96.00 - ACUTE RESPIRATORY FAILURE, UNSP W HYPOXIA OR HYPERCAPNIA Status: Acute Qualifiers: Respiratory failure complication: hypoxia Qualified Code(s): J96.01 - Acute respiratory failure with hypoxia (2) Pneumonia due to COVID-19 virus Code(s): U07.1 - COVID-19; J12.89 - OTHER VIRAL PNEUMONIA Status: Acute (3) Diabetes mellitus Code(s): E11.9 - TYPE 2 DIABETES MELLITUS WITHOUT COMPLICATIONS Status: Chronic Qualifiers: Diabetes mellitus type: type 2 Diabetes mellitus superintendent marine oil terminal insulin use: with superintendent marine oil terminal use Diabetes mellitus complication status: without complication Qualified Code(s): E11.9 - Type 2 diabetes mellitus without complications; Z79.4 - USP (current) use of insulin (4) Hypertension Code(s): I10 - ESSENTIAL (PRIMARY) HYPERTENSION Status: Chronic Qualifiers: Hypertension type: essential hypertension Qualified Code(s): I10 - Essential (primary) hypertension (5) Acute kidney injury Code(s): N17.9 - ACUTE KIDNEY FAILURE, UNSPECIFIED Status: Resolved (6) Metabolic acidosis Code(s): E87.2 - ACIDOSIS Status: Acute (7) Hypoproteinemia Code(s): E77.8 - OTHER DISORDERS OF GLYCOPROTEIN METABOLISM Status: Acute (8) Anemia Code(s): D64.9 - ANEMIA, UNSPECIFIED Status: Acute Qualifiers: Anemia type: unspecified type Qualified Code(s): D64.9 - Anemia, unspecified (9) Edema Code(s): R60.9 - EDEMA, UNSPECIFIED Status: Acute Qualifiers: Edema type: generalized Qualified Code(s): R60.1 - Generalized edema - Plan Acute hypoxic respiratory failure: Secondary to COVID-19 pneumonia. Extubated on 06/06/2020, then to medical floor on 06/09 Started on high flow oxygen 06/10 - and currently on room air Weaning steroids due to improvement - reduced to 4 mg IV on 06/13 COVID-19 pneumonia: Bilateral infiltrates. Weaning dexamethasone, vitamin supplementation. Isolation discontinued on 06/11/2020. s/p convalescent plasma Anemia: Etiology is unclear. Worsened on 06/09/2020 requiring transfusion. type and screen tomorrow and transfuse if this is continuing to decline occult test ordered - not yet obtained, improved today (06/13) Acute kidney injury: - resolved Dysphagia: Appreciate speech therapy assessment and recommendations. Subsequent evaluation she was moved to [facility] with nectar thick liquids although the patient requested ice and was accommodated. This has improved Physical debility/weakness: Significant weakness - d/w patient today and she desires IP rehab HTN -not optimally controlled - increase amlodipine to 10 mg daily - home dose - pt also on telmisartan 80 mg and hctz 25 mg daily. Has received 2 doses of hctz without any significant change in edema or bp. Will change to lasix. - add hydralazine PO. Holding on ARB (home med) as the pt had an NATANAEL and we are diuresing for the significant LE edema Edema - d/c hctz and start IV lasix. As pt is lasix naive, will start with low dose and monitor renal function LUE edema - check ultrasound, monitor erythema. No pain today - hold on antibiotics. DM - not optimally controlled - home dose of tresiba is 15-20 units per day - lantus increased this morning - change to moderate sliding scale - steroids decreased today dvt prophy - eliquis gi prophy - famotidine while on steroids code status full reviewed plan of care with patient, no questions or further needs at end of eval Case management consult for IP rehab - pt is medically ready for transfer when approved Addendum at 17:33 - FOBT negative and LUE ultrasound negative.
[2020-06-13] MEDS ORDERED: HumaLOG 300 UNITS/3 ML VIAL SC PRN (13:40)
[2020-06-13] MEDS ORDERED: hydrALAZINE 25 MG TAB PO SCH (13:45)
[2020-06-13] MEDS ORDERED: Furosemide 20 MG/2 ML VIAL SLOW IVP SCH (13:45)
--- NOTE | 2020-06-13 16:56 | ULT ---
LEFT UPPER EXTREMITY VENOUS DUPLEX EXAM: History: Left arm swelling, pain. FINDINGS: Real-time color doppler evaluation of the left upper extremity was performed to include the jugular, subclavian, axial, brachial, basilic and cephalic veins. This shows a patent deep venous system. Forearm veins were also evaluated which are also negative. Th ere is normal compressibility and augmentation. IMPRESSION: No evidence of DVT of the left upper extremity. POS: EVIN
[2020-06-13] MEDS: hydrALAZINE 25 MG TAB PO SCH ×2 (17:13→20:05)
[2020-06-14] MEDS: Dexamethasone 4 MG TAB PO SCH (08:56)
[2020-06-14] MEDS: metFORMIN 500 MG TAB PO SCH (08:57)
[2020-06-14] MEDS: Zinc Sulfate 220 MG CAP PO SCH (08:58)
[2020-06-14] MEDS: hydrALAZINE 25 MG TAB PO SCH ×4 (08:58→20:50)
[2020-06-14] MEDS: Benzonatate 100 MG CAP PO SCH ×3 (08:58→20:50)
[2020-06-14] MEDS: Apixaban 2.5 MG TAB PO SCH ×2 (08:59→20:50)
[2020-06-14] MEDS: Ascorbic Acid 500 mg Chewable Tablet PO SCH (08:59)
[2020-06-14] MEDS: Amlodipine 10 MG TAB PO SCH (08:59)
[2020-06-14] MEDS: Lactinex Tablet PO SCH (08:59)
[2020-06-14] MEDS: Famotidine 20 MG TAB PO SCH ×2 (08:59→20:50)
[2020-06-14] MEDS: Insulin Glargine 20 UNITS in Pre-Filled Syringe 1 EACH SC SCH (09:00)
[2020-06-14] MEDS: Furosemide 20 MG/2 ML VIAL SLOW IVP SCH (09:00)
[2020-06-14] MEDS: Cholecalciferol (Vitamin D3) 400 UNITS TAB PO SCH (09:01)
[2020-06-14] MEDS: Ergocalciferol 1.25 MG(50,000 UNITS) CAP PO SCH (09:08)
--- NOTE | 2020-06-14 10:10 | PDOC.HOSPP ---
- Subjective Encounter Date: 06/14/20 (f./u resp failure) Encounter Time: 10:08 Subjective: 55 y/o female with acute resp failure due to covid who required intubation. She has improved and is now on room air. Pt today reports improvement - moving better with assistance/walker, breathing is comfortable at rest - out of breath with exertion. She reports some diarrhea. The swelling is improved in her left arm and legs - but still present with some cramping in legs this morning. She continues to be on a thickened liquid diet. - Objective Vital Signs & Weight: Vital Signs (12 hours) Temp Pulse Resp BP BP Pulse Ox 06/14/20 08:00 97.8 F 81 18 163/71 H 98 06/14/20 05:21 98.2 F 76 20 137/60 97 06/14/20 00:49 97.5 F L 84 18 167/65 H 96 Weight Admit Weight 220 lb Weight 232 lb 9.403 oz Most Recent Monitor Data Heart Rate from ECG 59 NIBP 160/72 NIBP BP-Mean 101 Respiration from ECG 24 SpO2 100 I&O: 06/13/20 06/14/20 06/15/20 06:59 06:59 06:59 Intake Total 1250 2480 Output Total 450 Balance 1250 2030 Result Diagrams: 06/13/20 06:38 06/13/20 06:38 Additional Labs: Accuchecks 06/14/20 06/13/20 06/13/20 04:52 20:01 16:59 POC Glucose 100 207 H 285 H 06/13/20 06/13/20 11:44 04:54 POC Glucose 242 H 210 H Hospitalist ROS - Medication Medications: Active Medications Generic Name Dose Route Start Last Admin Trade Name Freq PRN Reason Stop Dose Admin Acetaminophen 650 mg 05/29/20 09:58 06/07/20 02:13 Acetaminophen 650 Mg Suppository MS 650 mg Q4H PRN Administration Headache/Fever or Pain Acetaminophen 650 mg 05/29/20 09:58 06/09/20 09:33 Acetaminophen 325 Mg Tab PO 650 mg Q4H PRN Administration Fever/Mild Pain Acidophilus 1 tab 06/13/20 09:00 06/14/20 08:59 Lactinex Tablet PO 1 tab DAILY GEO Administration Amlodipine Besylate 10 mg 06/13/20 09:00 06/14/20 08:59 Amlodipine 10 Mg Tab PO 10 mg DAILY GEO Administration Apixaban 2.5 mg 06/09/20 21:00 06/14/20 08:59 Apixaban 2.5 Mg Tab PO 2.5 mg BID GEO Administration Ascorbic Acid 1,000 mg 05/29/20 09:00 06/14/20 08:59 Ascorbic Acid 500 Mg Chewable Tablet PO 1,000 mg DAILY GEO Administration Benzonatate 100 mg 05/29/20 15:00 06/14/20 08:58 Benzonatate 100 Mg Cap PO 100 mg TID GEO Administration Cholecalciferol 400 units 05/29/20 09:00 06/14/20 09:01 Cholecalciferol (Vitamin D3) 400 Units Tab PO 400 units DAILY GEO Administration Ergocalciferol 1.25 mg 06/07/20 09:00 06/14/20 09:08 Ergocalciferol 1.25 Mg(50,000 Units) Cap PO 1.25 mg Q7DAYS GEO Administration Famotidine 20 mg 06/09/20 21:00 06/14/20 08:59 Famotidine 20 Mg Tab PO 20 mg BID GEO Administration Furosemide 20 mg 06/14/20 09:00 06/14/20 09:00 Furosemide 20 Mg/2 Ml Vial SLOW IVP 20 mg DAILY GEO Administration Hydralazine HCl 10 mg 06/10/20 00:06 06/10/20 03:27 Hydralazine 20 Mg/Ml Vial SLOW IVP 10 mg Q4H PRN Administration SBP > 180 and HR < 70 Hydralazine HCl 25 mg 06/13/20 17:00 06/14/20 08:58 Hydralazine 25 Mg Tab PO 25 mg QID GEO Administration Insulin Glargine 20 units/ 0.2 mls @ 0 mls/hr 06/13/20 09:00 06/14/20 09:00 Miscellaneous Medication SC 0.2 mls QAM GEO Administration Insulin Human Lispro 0 units 06/13/20 13:40 06/13/20 17:14 Humalog 300 Units/3 Ml Vial SC 6 unit .MODERATE SLIDING SC PRN Administration Moderate Correctional Scale Insulin Human Lispro 0 units 06/13/20 13:40 06/13/20 20:06 Humalog 300 Units/3 Ml Vial SC 2 unit .BEDTIME SLIDING SC PRN Administration Bedtime Correctional Scale Metformin HCl 500 mg 06/13/20 08:00 06/14/20 08:57 Metformin 500 Mg Tab PO 500 mg QAM-WM GEO Administration Sodium Chloride 10 ml 05/29/20 09:00 06/14/20 08:59 Flush - Normal Saline 10 Ml Syringe IVF 10 ml Q12HR GEO Administration Zinc Sulfate 220 mg 05/29/20 09:00 06/14/20 08:58 Zinc Sulfate 220 Mg Cap PO 220 mg DAILY GEO Administration - Exam General Appearance: NAD Respiratory: no wheezes, no rales, no ronchi Respiratory - other findings: decreased breath sounds at the bases Gastrointestinal: soft, non-tender, non-distended, normal bowel sounds Extremities: 2+ LE edema Extremities - other findings: slightly improved in LE, less edema LUE. Skin - other findings: Less erythema around crusting at prior IV site left wrist, Psychiatric: normal affect Hosp A/P (1) Acute respiratory failure Code(s): J96.00 - ACUTE RESPIRATORY FAILURE, UNSP W HYPOXIA OR HYPERCAPNIA Status: Acute Qualifiers: Respiratory failure complication: hypoxia Qualified Code(s): J96.01 - Acute respiratory failure with hypoxia (2) Pneumonia due to COVID-19 virus Code(s): U07.1 - COVID-19; J12.89 - OTHER VIRAL PNEUMONIA Status: Acute (3) Diabetes mellitus Code(s): E11.9 - TYPE 2 DIABETES MELLITUS WITHOUT COMPLICATIONS Status: Chronic Qualifiers: Diabetes mellitus type: type 2 Diabetes mellitus medical terminologist insulin use: with medical terminologist use Diabetes mellitus complication status: without complication Qualified Code(s): E11.9 - Type 2 diabetes mellitus without complications; Z79.4 - remote computer terminal operator (current) use of insulin (4) Hypertension Code(s): I10 - ESSENTIAL (PRIMARY) HYPERTENSION Status: Chronic Qualifiers: Hypertension type: essential hypertension Qualified Code(s): I10 - Essential (primary) hypertension (5) Acute kidney injury Code(s): N17.9 - ACUTE KIDNEY FAILURE, UNSPECIFIED Status: Resolved (6) Metabolic acidosis Code(s): E87.2 - ACIDOSIS Status: Acute (7) Hypoproteinemia Code(s): E77.8 - OTHER DISORDERS OF GLYCOPROTEIN METABOLISM Status: Acute (8) Anemia Code(s): D64.9 - ANEMIA, UNSPECIFIED Status: Acute Qualifiers: Anemia type: unspecified type Qualified Code(s): D64.9 - Anemia, unspecified (9) Edema Code(s): R60.9 - EDEMA, UNSPECIFIED Status: Acute Qualifiers: Edema type: generalized Qualified Code(s): R60.1 - Generalized edema - Plan Acute hypoxic respiratory failure: Secondary to COVID-19 pneumonia. Extubated on 06/06/2020, Started on high flow oxygen 06/10 - and currently on room air Weaning steroids due to improvement - reduced to 4 mg IV on 06/13, change to 2 mg starting tomorrow. COVID-19 pneumonia: Bilateral infiltrates. Weaning dexamethasone - start 2 mg tomorrow and anticipate it can be d/c in 2 days, vitamin supplementation. Isolation discontinued on 06/11/2020. s/p convalescent plasma Anemia - stable Etiology is unclear. Worsened on 06/09/2020 requiring transfusion. type and screen today, hemoglobin stable transfuse if this is continuing to decline occult test negative Acute kidney injury: - resolved Dysphagia: Appreciate speech therapy assessment and recommendations. Subsequent evaluation she was moved to [facility] with nectar thick liquids although the patient requested ice and was accommodated. This has improved 06/14 - requested re-eval as pt has significantly improved Physical debility/weakness: Significant weakness - d/w patient today and she desires IP rehab Diarrhea - check c diff HTN -improved - continue amlodipine and hydralazine - continue diuresis with IV lasix - return to home hctz when complete - hold home ARB due to NATANAEL during hospitalization and using lasix. - recheck metabolic panel tomorrow Edema - continue IV lasix LUE edema - ultrasound negative for DVT and improved DM - blood sugar this morning only 100 after increasing lantus to 20 units - will lower to 15 units daily - monitor blood sugars today/tonight - continue moderate sliding scale - steroids decreased again starting tomorrow dvt prophy - eliquis gi prophy - famotidine while on steroids code status full reviewed plan of care with patient, no questions or further needs at end of eval Case management consult for IP rehab - pt is medically ready for transfer when approved
[2020-06-14] MEDS ORDERED: Dexamethasone 4 MG TAB PO SCH (10:15)
[2020-06-14] MEDS: HumaLOG 300 UNITS/3 ML VIAL SC PRN ×2 (13:24→18:09)
[2020-06-14] MEDS ORDERED: Melatonin 3 MG TAB PO PRN (13:27)
[2020-06-14] MEDS: Loperamide HCl 2 MG CAP PO PRN (16:31)
[2020-06-15 07:22] LABS: Anion Gap 11 mmol/L (10-20); BUN (Urea Nitrogen) 19 mg/dL (9.8-20.1); Calc. Creatinine Clearance 145 mL/min (70-130); Calcium 8.1 mg/dL (7.8-10.44); Carbon Dioxide 24 mmol/L (22-29); Chloride 110 mmol/L (98-107); Glucose 110 mg/dL (70-105); Potassium 3.9 mmol/L (3.5-5.1); Sodium 141 mmol/L (136-145)
[2020-06-15] MEDS ORDERED: Dexamethasone 4 MG TAB PO SCH (08:00)
[2020-06-15] MEDS: hydrALAZINE 25 MG TAB PO SCH ×3 (08:33→16:11)
[2020-06-15] MEDS: Ascorbic Acid 500 mg Chewable Tablet PO SCH (08:34)
[2020-06-15] MEDS: Apixaban 2.5 MG TAB PO SCH (08:34)
[2020-06-15] MEDS: Cholecalciferol (Vitamin D3) 400 UNITS TAB PO SCH (08:34)
[2020-06-15] MEDS: Lactinex Tablet PO SCH (08:34)
[2020-06-15] MEDS: metFORMIN 500 MG TAB PO SCH (08:34)
[2020-06-15] MEDS: Amlodipine 10 MG TAB PO SCH (08:35)
[2020-06-15] MEDS: Benzonatate 100 MG CAP PO SCH ×2 (08:35→16:11)
[2020-06-15] MEDS: Famotidine 20 MG TAB PO SCH (08:35)
[2020-06-15] MEDS: Zinc Sulfate 220 MG CAP PO SCH (08:35)
[2020-06-15] MEDS: Furosemide 20 MG/2 ML VIAL SLOW IVP SCH (08:36)
[2020-06-15] MEDS ORDERED: Insulin Glargine 12 UNITS in Pre-Filled Syringe 1 EACH SC SCH (09:00)
[2020-06-15] MEDS ORDERED: Insulin Glargine 15 UNITS in Pre-Filled Syringe 1 EACH SC SCH (09:00)
[2020-06-15] MEDS: Loperamide HCl 2 MG CAP PO PRN (12:25)
[2020-06-15] MEDS: HumaLOG 300 UNITS/3 ML VIAL SC PRN (16:43)
[2020-06-15 17:00] VITALS: BP 153/77; TEMP 97.8
--- NOTE | 2020-06-15 23:39 | PDOC.DS.DS ---
Provider - Provider Date of Admission: 05/29/20 02:12 Date of Discharge: 06/15/20 Admitting Provider: Laurent Beaulieu MD Consultations: Nephrology, Pulmonary Primary Care Physician: OUT OF TOWN Course - Hospital Course Hospital Course: Patient is a 55-year-old female with hypertension, diabetes mellitus type II with recent diagnosis of COVID 19 presented to the hospital with 2 day history of shortness of breath along with cough. She was started on O2 supplementation and the outside emergency room and was transferred to this facility for Hospital admission to the intensive care unit. Please refer to the history and physical for further details. The patient was admitted to the intensive care unit with a diagnosis of acute hypoxic respiratory failure due to COVID 19 pneumonia. She was started on high flow oxygen. She was started on steroids along with oxygen. She also received convalescent plasma. She was eventually placed on mechanical ventilation and subsequent extubation on 06/06. Patient was transferred out to [facility] on 06/07 and was later transferred to the medical floor. Due to progressive decline she will be discharged to inpatient rehab. She has been cleared by consultants for discharge. Final diagnosis: Acute hypoxic respiratory failure due to COVID 19 pneumonia Obesity with a BMI 36.4 Diabetes mellitus type II CKD stage II Elevated inflammatory markers Acute kidney injury with creatinine of 2.27 on admission and 0.73 at discharge Chronic anemia suspected due to nutritional deficiency Time coordinating the discharge of this patient was 37 minutes. Resuscitation Status: 05/29/20 07:01 Resuscitation Status Routine Resuscitation Status: FULL: Full Resuscitation - Labs Lab Results: 06/13/20 06:38 06/15/20 06:51 Abnormal Lab Results - Last 48 hrs 06/15/20 06:51: Chloride 110 H Microbiology - Entire Visit 06/14/20 12:10 Stool C. difficile GDH Antigen & Toxins - Final 06/13/20 10:05 Stool - Soft - Final - Physical Exam Vitals: Vital Signs (12 hours) Temp Pulse Resp BP Pulse Ox 06/15/20 16:30 97.8 F 89 18 153/77 H 97 Weight Admit Weight 220 lb Weight 232 lb 9.403 oz Most Recent Monitor Data Heart Rate from ECG 59 NIBP 160/72 NIBP BP-Mean 101 Respiration from ECG 24 SpO2 100 Physical Exam: The patient was seen and examined on the day of discharge. Plan - Discharge Medications Prescriptions: Dexamethasone 1 mg PO BID #20 tablet Apixaban [Eliquis] 2.5 mg PO BID #60 tab Furosemide [Lasix] 40 mg PO DAILY #7 tab Famotidine [Pepcid] 20 mg PO BID #60 tab Home Medications: Medication Instructions Recorded Confirmed Type Insulin Regular, Human [Novolin R] 0 units SC ASDIR PRN 11/20/18 11/20/18 History Albuterol Sulfate [Proventil Hfa] 06/05/20 History Budesonide/Formoterol Fumarate 2 inhaler PO 06/05/20 History [Budesonide-Formoterol 160-4.5] Lactobacillus Acidophilus 1 capsule PO DAILY 06/05/20 06/05/20 History [Probiotic] Multivitamin/Iron/Folic Acid 06/05/20 History [Centrum Adults Tablet] Apixaban [Eliquis] 2.5 mg PO BID #60 tab 06/11/20 Rx Ascorbic Acid [Vitamin C] 1,000 mg PO DAILY tab 06/11/20 Rx Amlodipine [Norvasc] 10 mg PO DAILY tab 06/15/20 Rx Cholecalciferol (Vitamin D3) 400 units PO DAILY tab 06/15/20 Rx [Vitamin D3] Dexamethasone 1 mg PO BID #20 tablet 06/15/20 Rx Famotidine [Pepcid] 20 mg PO BID #60 tab 06/15/20 Rx Furosemide [Lasix] 40 mg PO DAILY #7 tab 06/15/20 Rx Insulin Glargine [Lantus Vial] 15 units SC QAM vial 06/15/20 Rx Loperamide HCl [Imodium] 2 mg PO PRN PRN cap 06/15/20 Rx Melatonin 3 mg PO HS PRN tab 06/15/20 Rx Zinc Sulfate 220 mg PO DAILY cap 06/15/20 Rx hydrALAZINE [Apresoline] 25 mg PO QID tab 06/15/20 Rx metFORMIN [Glucophage] 500 mg PO QAM-WM tab 06/15/20 Rx Allergies: prednisone Allergy (Verified 05/29/20 06:31) - Discharge Instructions Discharge Instructions:: FOLLOW UP WITH PCP IN 7 DAYS Activity:: Activity as Tolerated Nourishment:: Diabetic Diet, Heart Healthy Diet Therapies:: Physical Therapy - Follow up Plan Referrals: [facility]OUT OF [Primary Care Provider] - Bob Rai MD [Active] - 3-4 Weeks Obi,Chizoba C, MD [Active] - Grady Griffith MD [Active] - 14 Days Disposition: REHABILITATION INPATIENT Quality - Care Measures CORE MEASURES:: N/A
--- NOTE | 2020-06-17 06:46 | PQF ---
CLINICAL DOCUMENTATION CLARIFICATION FORM: Dear : Moreno Serrano Date / Time: 06/17/20 06:45 Please exercise your independent, professional judgment in responding to the clarification form. Clinical indicators are provided on the bottom of this form for your review Please check appropriate box(es): [ ] Sepsis due to Covid 19 infection [ x ] Severe Sepsis due to Covid 19 infection [ ] Localized infection without sepsis [ ] Other diagnosis, please specify [ ] Unable to determine Physician Signature: Date/Time: For continuity of documentation, please document condition throughout progress notes and discharge summary. Thank You. To be completed by CDI/Coding staff for physician review: Present Clinical Indicators - Signs / Symptoms / Labs Results and Location in Medical Record [x] Chest Xray: bilateral interstitial and airspace opacities Chest Xray 05/29 [x] NATANAEL HP 05/29 [x] Acute hypoxic respiratory failure in the setting of Covid19 PNA HP 05/29 [x] Metabolic acidosis PN 05/29 [x] NATANAEL most likely due to hemodynamic factor related to volume depletion and cytokine mediated injury related to sepsis Consult 05/29 [x] Tick=646.1 Pulse=73 PT=661/57 Respi=22 Vital Signs 05/29 [x] WBC: 06/02=14.8 06/10=14.9 06/11=13.8 Laboratory 06/02 [x] Lactic: 05/29=1.9 Laboratory 05/29 Present Risk Factors Results and Location in Medical Record [x] DM HP 05/29 [x] Covid19 PNA HP 05/29 [x] Obesity Present Treatments Results and Location in Medical Record [x] IVF AUG 13 [x] Cefepime 1gm IV AUG 02 [x] Pulmonology Consult Consult 05/29 CDS/Nanotechnology Technician Signature: Agustin Fowler Phone #: ext [phone] Date/Time: 06/17/20 This is a permanent part of the Medical Record [facility]
== END 2020-06-15 17:18 | DRG 870 ==
LOC: CCU 02:12 → IMCU/EMU 06-07 15:41 → T4-A 06-09 18:09
PROVIDERS: ADMIT Student in an Organized Health Care Education/Training Program; ATTEND Internal Medicine
PROC: XW13325 Transfusion of Convalescent Plasma (Nonautologous) into Peripheral Vein, Percutaneous Approach, New Technology Group 5 (ICD-10-PCS; 2020-05-29)
PROC: 0BH17EZ Insertion of Endotracheal Airway into Trachea, Via Natural or Artificial Opening (ICD-10-PCS; principal; 2020-05-30)
PROC: 5A1955Z Respiratory Ventilation, Greater than 96 Consecutive Hours (ICD-10-PCS; 2020-05-30)
PROC: 5A09357 Assistance with Respiratory Ventilation, Less than 24 Consecutive Hours, Continuous Positive Airway Pressure (ICD-10-PCS; 2020-06-07)
PROC: 30233N1 Transfusion of Nonautologous Red Blood Cells into Peripheral Vein, Percutaneous Approach (ICD-10-PCS; 2020-06-09)
DX: A41.89 Other specified sepsis (principal); U07.1 COVID-19; J96.01 Acute respiratory failure with hypoxia; J12.82 Pneumonia due to coronavirus disease 2019; N17.9 Acute kidney failure, unspecified; E87.2 Acidosis; R04.2 Hemoptysis; R65.20 Severe sepsis without septic shock; E11.65 Type 2 diabetes mellitus with hyperglycemia; T38.0X5A Adverse effect of glucocorticoids and synthetic analogues, initial encounter; E87.6 Hypokalemia; E77.8 Other disorders of glycoprotein metabolism; E66.9 Obesity, unspecified; E55.9 Vitamin D deficiency, unspecified; I12.9 Hypertensive chronic kidney disease with stage 1 through stage 4 chronic kidney disease, or unspecified chronic kidney disease; E11.22 Type 2 diabetes mellitus with diabetic chronic kidney disease; D63.1 Anemia in chronic kidney disease; R13.10 Dysphagia, unspecified; R60.1 Generalized edema; N18.2 Chronic kidney disease, stage 2 (mild); D53.9 Nutritional anemia, unspecified; Z68.36 Body mass index [BMI] 36.0-36.9, adult; Z88.8 Allergy status to other drugs, medicaments and biological substances; Z79.4 Long term (current) use of insulin; Z79.899 Other long term (current) drug therapy
CPT/HCPCS: 36415; 36416; 36430; 36600; 71045; 80048; 80053; 80069; 81001; 82270; 82306; 82550; 82570; 82728; 82805; 83540; 83550; 83605; 83735; 84100; 84156; 84300; 84540; 85007; 85025; 85027; 85046; 85379; 86140; 86850; 86900; 86901; 87324; 87449; 94002; 94003; 94660; C9113; J0360; J0692; J1100; J1650; J1815; J1940; J2001; J2060; J2704; J3010; J3480; J3490; J7070; J8540; P9016; P9017; S0028